=== PATIENT | female | born 1960 | race Caucasian/White ===

== ENCOUNTER → 2020-07-29 09:36 | Outpatient (BNVA) | payer OTHER, SELFPAY | PROVIDERS: PCP Pediatrics; Referring Provider Pediatrics; Visit Provider Nurse Practitioner | DX: K59.04 Chronic idiopathic constipation (principal); K21.9 Gastro-esophageal reflux disease without esophagitis; K56.2 Volvulus; Z79.899 Other long term (current) drug therapy | CPT/HCPCS: 99212 ==

== ENCOUNTER 2020-08-14 10:07 | Outpatient (REF) | payer OTHER, SELFPAY ==
--- NOTE | 2020-08-14 | MM_ITS ---
EXAMINATION: BONE DENSITOMETRY CLINICAL INDICATION: Other specified disorders of bone density and structure, unspecified site. COMPARISON: Baseline BD dated 06/23/2016. TECHNIQUE: Using a [employer] DXA System (software version: 13.1) manufactured by [employer], dual-energy x-ray absorptiometry was performed of the lumbar spine and left hip. The images are of good technical quality. Summary results are attached. FINDINGS: AP SPINE L1-L4: Current: BMD 0.964 g/cm2, Z-score -1.0, T-score -1.8, osteopenia, 5.9% decrease from baseline (<5% change is not significant). Baseline: BMD 1.024 g/cm2. LEFT FEMUR, NECK: Current: BMD 0.705 g/cm2, Z-score -1.4, T-score -2.4, osteopenia. Baseline: BMD 0.809 g/cm2. LEFT FEMUR, TOTAL: Current: BMD 0.674 g/cm2, Z-score -2.0, T-score -2.6, osteoporosis, 14.8% decrease from baseline (<5% change is not significant). Baseline: BMD 0.791 g/cm2. IDENTIFIED RISK FACTORS: History of adult fracture. Current smoker. Recurrent falls. Low calcium intake. Secondary osteoporosis (part of stomach removed, early menopause). Left oophorectomy. HISTORY OF FRACTURE: Wrist. MEDICATIONS: Calcium supplement and/or multivitamin. Vitamin D. MM/XR DEXA axial skeleton IMPRESSION: 1. DIAGNOSIS: Osteoporosis based on the lowest T-score value of -2.6 in the total femur and the prior history of fracture applying World Health Organization criteria. 2. 10-YEAR FRACTURE RISK PREDICTION, FRAX: Major osteoporotic fracture (clinical spine, forearm, hip or shoulder) 11.0%. Hip fracture 3.1%. 3. Treatment Recommendations: NOF guidelines recommend consideration for treatment in postmenopausal women and men age 50 and older presenting with the following: -A hip or vertebral (clinical or morphometric) fracture. -T-score less than or equal to -2.5 at the femoral neck or spine after appropriate evaluation to exclude secondary causes. -Low bone mass at the hip or spine and a 10-year fracture probability by FRAX of greater than or equal to 3% for hip fracture or greater than or equal to 20% for major osteoporotic fracture based on the [place] adapted WHO algorithm. 4. Other Recommendations: All treatment decisions require clinical judgment and consideration of individual patient factors, including patient preferences, comorbidities, previous drug use, risk factors not captured in the FRAX model (e.g. frailty, falls, vitamin D deficiency, increased bone turnover, interval significant decline in bone density) and possible under or overestimation of fracture risk by FRAX. Additional medical evaluation for secondary cause of low bone mineral density may be appropriate. FUTURE SCAN RECOMMENDATION: People with diagnosed cases of osteoporosis or at high risk for fracture should have regular bone mineral density tests. For patients eligible for Medicare, routine testing is allowed once every 2 years. The testing frequency can be increased to one year for patients who have rapidly progressing disease, those who are receiving or discontinuing medical therapy to restore bone mass, or have additional risk factors.
== END 2020-08-14 10:08 | disposition home or self-care (01) ==
LOC: HO.MAMMO 10:07
PROVIDERS: PCP Pediatrics; Visit Provider Pediatrics
DX: M85.89 Other specified disorders of bone density and structure, multiple sites (principal)
CPT/HCPCS: 77080

== ENCOUNTER → 2021-02-04 08:49 | Outpatient (BNVA) | payer OTHER, SELFPAY | PROVIDERS: PCP Pediatrics; Visit Provider Nurse Practitioner | DX: Z13.89 Encounter for screening for other disorder (principal) | CPT/HCPCS: Q3014 ==

== ENCOUNTER 2021-02-25 11:02 | Outpatient (REF) | payer OTHER, SELFPAY ==
[2021-02-25 12:47] LABS: Glucose Urine UA NEG (NEG); Leukocyte Esterase Urine NEG (NEG); Nitrite Urine NEG (NEG); Specific Gravity - Urine >= 1.030 (1.005-1.025); Urine Blood TRACE (NEG); Urine Ketones 5 MG/DL (NEG); Urine Protein NEG (NEG-TRACE)
[2021-02-25 12:52] LABS: Appearance Urine CLEAR; Color Urine DARK YELLOW
[2021-02-25 13:39] LABS: Bacteria Urine TRACE /LPF; Calcium Oxalate Crystals Urine TRACE /LPF; Squamous Epithelial Cell Urine 1+ /LPF; WBC Urine 0 /HPF (0-4)
== END 2021-02-25 11:03 | disposition home or self-care (01) ==
LOC: HO.LAB 11:02
PROVIDERS: PCP Pediatrics; Visit Provider Nurse Practitioner
DX: R35.0 Frequency of micturition (principal)
CPT/HCPCS: 81001

== ENCOUNTER → 2021-02-27 08:13 | Outpatient (BNVA) | payer OTHER, SELFPAY | PROVIDERS: PCP Pediatrics; Visit Provider Nurse Practitioner | DX: Z13.89 Encounter for screening for other disorder (principal) | CPT/HCPCS: Q3014 ==

== ENCOUNTER 2021-04-08 10:34 | Outpatient (REF) | payer OTHER, SELFPAY ==
[2021-04-08 13:32] LABS: Urine Cytology See Pathology rpt
== END 2021-04-08 10:35 | disposition home or self-care (01) ==
LOC: HO.LNP 10:34
PROVIDERS: PCP Pediatrics
DX: R31.9 Hematuria, unspecified (principal)
CPT/HCPCS: 51798; 88112; 99202

== ENCOUNTER → 2021-04-30 11:07 | Outpatient (BNVA) | payer OTHER, SELFPAY | PROVIDERS: PCP Pediatrics | DX: R35.0 Frequency of micturition (principal) | CPT/HCPCS: 99212 ==

== ENCOUNTER → 2021-06-03 08:24 | Outpatient (BNVA) | payer OTHER, SELFPAY | PROVIDERS: PCP Pediatrics; Visit Provider Nurse Practitioner | CPT/HCPCS: Q3014 ==

== ENCOUNTER 2021-06-24 13:55 | Inpatient (IN) | payer OTHER, SELFPAY ==
[2021-06-24] VITALS (24 sets, daily range): BP systolic 158–210; BP diastolic 75–117; PULSE 62–99; RESP 15–20; TEMP 36.5–37.6; O2SAT 96–100; BMI 25.7
--- NOTE | ~2021-06-24 | CT_ITS ---
EXAMINATION: CT ABDOMEN AND PELVIS WITHOUT CONTRAST CLINICAL INFORMATION: Right flank pain. COMPARISON: MR lumbar spine 06/16/2016, radiographs lumbar spine 07/16/2015. TECHNIQUE: Multidetector volumetric imaging was performed from the superior aspect of the liver through the pubic symphysis. No oral or intravenous contrast. Sagittal and coronal reformatted images were obtained on the technologist's workstation. This CT examination was performed using dose optimization techniques as appropriate, variously including the following: *Automated exposure control *Adjustment of mA and/or kV according to patient size (this includes techniques or standardized protocols for targeted exams where dose is matched to indication/reason for exam; i.e. extremities or head) *Use of iterative reconstruction technique DLP: 466 mGy-cm FINDINGS: LUNG BASES: The visualized lung bases are unremarkable. LIVER, GALLBLADDER, AND BILIARY TREE: The liver is normal in size and smooth in contour. There is a probable 1 cm subcapsular cyst dome left lobe segment 4A. The remainder of the liver is homogeneous. There is no intrahepatic ductal dilatation. The gallbladder is normal in caliber. There is no wall thickening or calcified stones. There is a 0.6 cm intraluminal isodensity near the fundus. Differential considerations include polyp, adenoma, tumefactive sludge, or nonmineralized stone. No pericholecystic inflammatory changes. Common duct is unremarkable. PANCREAS: Unremarkable. SPLEEN: Unremarkable. ADRENAL GLANDS: Unremarkable. KIDNEYS AND URETERS: The kidneys are normal in size and smooth in contour and symmetric in attenuation. There is no hydronephrosis, hydroureter, or perinephric stranding. Left kidney has a punctate nonobstructing upper pole calculus measuring under 3 mm. Right kidney has a nonobstructing parenchymal calculus medial interpolar region measuring 0.5 cm. No ureteral calculi. BLADDER: Unremarkable. GASTROINTESTINAL TRACT: There are postsurgical changes consistent with prior gastric bypass. There are also anastomosis clips anterior left pelvis with focal distended bowel with feces. It is uncertain if this represents colon or small bowel. Appendix not seen with certainty. No focal inflammatory changes around cecum or terminal ileum. The central mesentery shows corkscrew swirling of the vasculature with nonspecific mid mesenteric edema. There is no pneumatosis or free air. No gaseous dilatation of bowel. There is fluid filled distention of the samish stomach and duodenum. Trace pelvic fluid. 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 ABDOMINAL WALL: No significant hernia is appreciated. LYMPH NODES: Normal. VASCULAR: See GI section above. Abdominal aorta are unremarkable. PELVIC VISCERA: No additional findings. OSSEOUS STRUCTURES: Unremarkable. Report called and discussed with Regla Dave PA-C in the Emergency Department at 1635 hours. Surgical consult is recommended. Repeat CT with oral and intravenous contrast may help in further defining the abnormalities in the bowel and mid mesentery. CT/CT abdomen pelvis wo con IMPRESSION: 1. Postsurgical changes including prior gastric bypass. Corkscrew swirling of mid mesenteric vasculature with mesenteric edema and trace ascites. 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 Recommend surgical consult. Repeat CT with oral and intravenous contrast may help in further defining the bowel and mesentery. 2. Bilateral nonobstructing renal calculi. No hydronephrosis, hydroureter, or perinephric stranding. 3. Small isodensity in gallbladder lumen near fundus. No gallbladder wall thickening or ductal dilatation. Differential considerations include polyp, adenoma, tumefactive sludge, nonmineralized stone.
--- NOTE | 2021-06-24 14:28 | ED.GENADULT ---
HPI - General Adult General Chief complaint: Abdominal Pain <Isabella Napoles MD - Last Filed: 06/24/21 18:45> Stated complaint: abd pain, vomiting <Isabella Napoles MD - Last Filed: 06/24/21 18:45> Time Seen by Provider: 06/24/21 14:25 <Isabella Napoles MD - Last Filed: 06/24/21 18:45> Source: patient <Isabella Napoles MD - Last Filed: 06/24/21 18:45> Mode of arrival: ambulatory <Isabella Napoles MD - Last Filed: 06/24/21 18:45> Limitations: no limitations <MD Allison Reilly Last Filed: 06/24/21 18:45> History of Present Illness HPI narrative: 61 years old female came in for evaluation of right flank pain. Pain started 1 hour ago, confined to the right flank pain now started to radiate down to the right lower abdominal area, pain is constant but fluctuate and described as severe dull aching pain 10/10, nothing make it better, nothing makes it worse, associated with nausea and vomiting, no diarrhea, no fever, chills. Patient had similar symptoms in the past and had a history of kidney stones that require stent placement. <Isabella Napoles MD - Last Filed: 06/24/21 18:45> Related Data Home medications: Home Medications Medication Instructions Recorded Confirmed bisacodyl 5 mg tablet,delayed 10 mg PO BEDTIME 07/26/20 04/30/21 release (Dulcolax (bisacodyl)) polyethylene glycol 3350 17 17 g PO DAILY 07/26/20 04/30/21 gram/dose oral powder (Miralax) Previous Rx's Medication Instructions Recorded linaclotide 145 mcg capsule 145 mcg PO DAILY #30 cap 11/14/20 (Linzess) oxybutynin chloride 10 mg 10 mg PO DAILY 30 Days #30 tab 04/30/21 tablet,extended release 24 hr pantoprazole 40 mg tablet,delayed 40 mg PO BID #180 tab 06/03/21 release <MD Allison Reilly Last Filed: 06/24/21 18:45> Allergies/adverse reactions: Allergies Allergy/AdvReac Type Severity Reaction Status Date / Time penicillin V Allergy Unknown unknown Verified 06/24/21 14:07 <Isabella Napoles MD - Last Filed: 06/24/21 18:45> Review of Systems Review of Systems: All other systems are reviewed and are negative Constitutional: Reports as per HPI and Reports no additional constitutional complaints Eyes: Reports as per HPI and Reports no additional eye complaints Reports system reviewed and no additional complaints, except as documented Cardiovascular: Reports as per HPI and Reports no additional cardiovascular complaints Respiratory: Reports as per HPI and Reports no additional respiratory complaints Gastrointestinal: Reports as per HPI and Reports no additional gastrointestinal complaints Genitourinary: Reports no additional female genitourinary complaints Musculoskeletal: Reports no additional musculoskeletal complaints Skin/Breast: Reports system reviewed and no additional complaints, except as docu Psychiatric: Reports no additional psychiatric complaints Endocrine: Reports no additional endocrine complaints Hematologic/Lymphatic: Reports no additional hematologic/lymphatic complaints Allergic/Immunologic: Reports no additional allergic/immunologic complaints Reports system reviewed and no additional complaints, except as documented and Reports Abnormal speech present <Isabella Napoles MD - Last Filed: 06/24/21 18:45> [facility] Past Medical History Medical History: Medical History Chronic idiopathic constipation Fibromyalgia syndrome GERD (gastroesophageal reflux disease) History of intussusception Migraine headache Volvulus of intestine <Isabella Napoles MD - Last Filed: 06/24/21 18:45> Surgical History: Surgical History H/O colonoscopy H/O wrist surgery History of surgery Hx of esophagogastroduodenoscopy <Isabella Napoles MD - Last Filed: 06/24/21 18:45> Family History Family History: Family History Father Alcoholism Mother Lung cancer Maternal Grandmother Breast cancer High blood pressure Maternal Grandfather Heart attack Paternal Grandfather Diabetes <Isabella Napoles MD - Last Filed: 06/24/21 18:45> Social History Social History: Social History Household Members: Children Housing: House Alcohol intake: never Patient Tobacco Use Status: Current everyday Tobacco user Cigarettes Per Day: 10 Years Smoked: since age 18 Use of substances other than those prescribed or required for medical reasons: No Substance Use Type: Marijuana Advance Directives: Yes Advance Directives Information Provided: Yes Advance Directives on File: No Patient : No Current occupational status: disabled <Isabella Napoles MD - Last Filed: 06/24/21 18:45> Physical Exam Vital Signs: Vital Signs: Last Vital Signs Temp 98.2 F 06/24/21 17:46 Pulse 67 06/24/21 17:46 Resp 18 06/24/21 17:46 BP 199/75 H 06/24/21 17:46 Pulse Ox 98 06/24/21 17:46 Body Mass Index 25.7 Vital signs have been reviewed as appeared to be correct. Blood pressure elevated. Heart rate normal. Respiration rate normal. Temperature normal. Oxygen saturation normal. <Isabella Napoles MD - Last Filed: 06/24/21 18:45> Vital Signs: Last Vital Signs Temp 98.2 F 06/24/21 17:46 Pulse 67 06/24/21 17:46 Resp 18 06/24/21 17:46 BP 199/75 H 06/24/21 17:46 Pulse Ox 98 06/24/21 17:46 Body Mass Index 25.7 <MALCOLM Nick - Last Filed: 06/24/21 16:38> Appearance: Alert. Oriented X3. Moderate acute distress due to right flank pain. Head: Normal external exam. Normocephalic. Atraumatic. No Brantley signs noted. No raccoon eyes noted Eyes: PERRLA. EOMI. Conjunctiva and sclera normal. Eyelids normal. ENT: TM's Normal. Pharynx normal. Uvula midline. Moist mucous membranes. No trismus noted. No drooling noted. No muffled voice noted. Neck: Normal inspection. Neck supple. FROM. No adenopathy. Thyroid Normal. No meningeal signs. No neck mass noted. CVS: Normal heart rate and rhythm. Heart sound normal. No murmurs noted. Pulses normal throughout. Respiratory: No respiratory distress. Painless inspiration. Breath sounds normal. No wheezes/rales/rhonchi noted. Chest nontender. No accessory muscle usage noted or decreased air movement noted. Abdomen: Soft and nontender. Bowel sounds normal in all 4 quadrants. No distention noted. No organomegaly noted. No visible injury noted. Back: Right CVA tenderness. Full range of motion noted. Skin: Skin warm and dry. Normal skin color. Normal skin turgor. No rashes/lesions/lacerations noted. Extremities: No lower extremity edema. Extremities exhibit normal range of motion. Extremities nontender. Neuro: Oriented X 3. Cranial nerve exam: II-XII are grossly intact No motor deficit. No sensory deficit. Reflexes normal. <Isabella Napoles MD - Last Filed: 06/24/21 18:45> Course Course Course Narrative: Assessment and plan. 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 Dr. Falcon from General surgery was at the bedside evaluated the patient recommended to consult bariatric surgery. Jovanny rodríguez from bariatric surgery is evaluating the patient decision to take the patient to the OR. Patient received IV empirical antibiotic. <Isabella Napoles MD - Last Filed: 06/24/21 18:45> Medical Decision Making Lab Data Lab results reviewed: Yes I reviewed the patient's lab results. <Isabella Napoles MD - Last Filed: 06/24/21 18:45> Result diagrams: : 06/24/21 14:47 06/24/21 14:47 <Isabella Napoles MD - Last Filed: 06/24/21 18:45> Labs: Lab Results 06/24/21 06/24/21 06/24/21 Range/Units 14:47 14:47 14:47 WBC 12.0 H (4.8-10.8) X10*3/uL RBC 5.62 H (4.20-5.50) X10*6/uL Hgb 13.6 (12.0-16.0) g/dl Hct 43.5 (37-47) % MCV 77.4 L (80-98) fL MCH 24.2 L (27.0-33.0) pg MCHC 31.3 (31.0-35.0) g/dl RDW 23.2 H (11.0-16.0) % Plt Count 211 (160-400) X10*3/uL MPV 10.9 (9.4-12.3) fL Immature Gran % (Auto) 0.4 (0.0-0.4) % Neut % (Auto) 81.5 H (45-73) % Lymph % (Auto) 13.3 L (20-40) % [place] % (Auto) 4.3 (2-11) % Eos % (Auto) 0.3 (0-4) % Baso % (Auto) 0.2 (0-2) % Lymph # (Auto) 1.6 (1.2-4.9) X10*3/uL [place] # (Auto) 0.5 (0.1-1.2) X10*3/uL Eos # (Auto) 0.0 (0.0-0.4) X10*3/uL Baso # (Auto) 0.0 (0.0-0.2) X10*3/uL Abs Immat Gran (auto) 0.05 H (0.00-0.03) X10*3/uL Absolute Neuts (auto) 9.8 H (2.0-8.3) X10*3/uL Absolute Nucleated RBC 0.000 (0.0-0.012) X10*3/uL Nucleated RBC % (auto) 0.0 (0.0-0.2) /100WBC Sodium 141 (135-145) mmol/L Potassium 4.0 (3.3-5.1) mmol/L Chloride 106 (96-108) mmol/L Carbon Dioxide 27 (22-29) mmol/L Anion Gap 12 (12-20) BUN 13 (9-16) mg/dL Creatinine 0.77 (0.5-1.4) mg/dL Estim Creat Clear Calc 74.5 Estimated GFR > 60 Random Glucose 111 (60-115) mg/dL Lactic Acid (0.5-2.0) mmol/L Calcium 8.8 (8.4-10.2) mg/dL Total Bilirubin 0.6 (0.0-1.0) mg/dL Direct Bilirubin 0.2 (0.0-0.5) mg/dL AST 13 (5-31) U/L ALT 12 (0-31) U/L Alkaline Phosphatase 70 (39-117) U/L Total Protein 5.7 L (6.5-8.0) g/dL Albumin 3.6 (3.5-5.0) g/dL Lipase 11 (8-78) U/L Urine Color Urine Appearance Urine pH (5.0-8.0) Ur Specific [place] (1.005-1.025) Urine Protein (NEG-TRACE) MG/DL Urine Glucose (UA) (NEG) MG/DL Urine Ketones (NEG) MG/DL Urine Blood (NEG) Urine Nitrite (NEG) Ur Leukocyte Esterase (NEG) Urine RBC (0) /HPF Urine WBC (0-4) /HPF Ur Squamous Epith Cells /LPF Calcium Oxalate Crystal /LPF Amorphous Sediment /LPF Urine Bacteria /LPF Urine Mucus /LPF COVID-19 (MIGUELINA) Negative (Negative) COVID-19 Clin Com See Note 06/24/21 06/24/21 Range/Units 15:51 18:14 WBC (4.8-10.8) X10*3/uL RBC (4.20-5.50) X10*6/uL Hgb (12.0-16.0) g/dl Hct (37-47) % MCV (80-98) fL MCH (27.0-33.0) pg MCHC (31.0-35.0) g/dl RDW (11.0-16.0) % Plt Count (160-400) X10*3/uL MPV (9.4-12.3) fL Immature Gran % (Auto) (0.0-0.4) % Neut % (Auto) (45-73) % Lymph % (Auto) (20-40) % [place] % (Auto) (2-11) % Eos % (Auto) (0-4) % Baso % (Auto) (0-2) % Lymph # (Auto) (1.2-4.9) X10*3/uL [place] # (Auto) (0.1-1.2) X10*3/uL Eos # (Auto) (0.0-0.4) X10*3/uL Baso # (Auto) (0.0-0.2) X10*3/uL Abs Immat Gran (auto) (0.00-0.03) X10*3/uL Absolute Neuts (auto) (2.0-8.3) X10*3/uL Absolute Nucleated RBC (0.0-0.012) X10*3/uL Nucleated RBC % (auto) (0.0-0.2) /100WBC Sodium (135-145) mmol/L Potassium (3.3-5.1) mmol/L Chloride (96-108) mmol/L Carbon Dioxide (22-29) mmol/L Anion Gap (12-20) BUN (9-16) mg/dL Creatinine (0.5-1.4) mg/dL Estim Creat Clear Calc Estimated GFR Random Glucose (60-115) mg/dL Lactic Acid 1.5 (0.5-2.0) mmol/L Calcium (8.4-10.2) mg/dL Total Bilirubin (0.0-1.0) mg/dL Direct Bilirubin (0.0-0.5) mg/dL AST (5-31) U/L ALT (0-31) U/L Alkaline Phosphatase (39-117) U/L Total Protein (6.5-8.0) g/dL Albumin (3.5-5.0) g/dL Lipase (8-78) U/L Urine Color YELLOW Urine Appearance HAZY Urine pH 6.5 (5.0-8.0) Ur Specific [place] 1.020 (1.005-1.025) Urine Protein NEG (NEG-TRACE) MG/DL Urine Glucose (UA) NEG (NEG) MG/DL Urine Ketones 5 (NEG) MG/DL Urine Blood 2+ H (NEG) Urine Nitrite NEG (NEG) Ur Leukocyte Esterase NEG (NEG) Urine RBC 15-29 H (0) /HPF Urine WBC 0-2 (0-4) /HPF Ur Squamous Epith Cells 1+ /LPF Calcium Oxalate Crystal 1+ /LPF Amorphous Sediment TRACE /LPF Urine Bacteria TRACE /LPF Urine Mucus 1+ /LPF COVID-19 (MIGUELINA) (Negative) COVID-19 Clin Com <Isabella Napoles MD - Last Filed: 06/24/21 18:45> Lab Results 06/24/21 06/24/21 06/24/21 Range/Units 14:47 14:47 14:47 WBC 12.0 H (4.8-10.8) X10*3/uL RBC 5.62 H (4.20-5.50) X10*6/uL Hgb 13.6 (12.0-16.0) g/dl Hct 43.5 (37-47) % MCV 77.4 L (80-98) fL MCH 24.2 L (27.0-33.0) pg MCHC 31.3 (31.0-35.0) g/dl RDW 23.2 H (11.0-16.0) % Plt Count 211 (160-400) X10*3/uL MPV 10.9 (9.4-12.3) fL Immature Gran % (Auto) 0.4 (0.0-0.4) % Neut % (Auto) 81.5 H (45-73) % Lymph % (Auto) 13.3 L (20-40) % Hernando % (Auto) 4.3 (2-11) % Eos % (Auto) 0.3 (0-4) % Baso % (Auto) 0.2 (0-2) % Lymph # (Auto) 1.6 (1.2-4.9) X10*3/uL [place] # (Auto) 0.5 (0.1-1.2) X10*3/uL Eos # (Auto) 0.0 (0.0-0.4) X10*3/uL Baso # (Auto) 0.0 (0.0-0.2) X10*3/uL Abs Immat Gran (auto) 0.05 H (0.00-0.03) X10*3/uL Absolute Neuts (auto) 9.8 H (2.0-8.3) X10*3/uL Absolute Nucleated RBC 0.000 (0.0-0.012) X10*3/uL Nucleated RBC % (auto) 0.0 (0.0-0.2) /100WBC Sodium 141 (135-145) mmol/L Potassium 4.0 (3.3-5.1) mmol/L Chloride 106 (96-108) mmol/L Carbon Dioxide 27 (22-29) mmol/L Anion Gap 12 (12-20) BUN 13 (9-16) mg/dL Creatinine 0.77 (0.5-1.4) mg/dL Estim Creat Clear Calc 74.5 Estimated GFR > 60 Random Glucose 111 (60-115) mg/dL Lactic Acid (0.5-2.0) mmol/L Calcium 8.8 (8.4-10.2) mg/dL Total Bilirubin 0.6 (0.0-1.0) mg/dL Direct Bilirubin 0.2 (0.0-0.5) mg/dL AST 13 (5-31) U/L ALT 12 (0-31) U/L Alkaline Phosphatase 70 (39-117) U/L Total Protein 5.7 L (6.5-8.0) g/dL Albumin 3.6 (3.5-5.0) g/dL Lipase 11 (8-78) U/L Urine Color Urine Appearance Urine pH (5.0-8.0) Ur Specific [place] (1.005-1.025) Urine Protein (NEG-TRACE) MG/DL Urine Glucose (UA) (NEG) MG/DL Urine Ketones (NEG) MG/DL Urine Blood (NEG) Urine Nitrite (NEG) Ur Leukocyte Esterase (NEG) Urine RBC (0) /HPF Urine WBC (0-4) /HPF Ur Squamous Epith Cells /LPF Calcium Oxalate Crystal /LPF Amorphous Sediment /LPF Urine Bacteria /LPF Urine Mucus /LPF COVID-19 (MIGUELINA) Negative (Negative) COVID-19 Clin Com See Note 06/24/21 06/24/21 Range/Units 15:51 18:14 WBC (4.8-10.8) X10*3/uL RBC (4.20-5.50) X10*6/uL Hgb (12.0-16.0) g/dl Hct (37-47) % MCV (80-98) fL MCH (27.0-33.0) pg MCHC (31.0-35.0) g/dl RDW (11.0-16.0) % Plt Count (160-400) X10*3/uL MPV (9.4-12.3) fL Immature Gran % (Auto) (0.0-0.4) % Neut % (Auto) (45-73) % Lymph % (Auto) (20-40) % [place] % (Auto) (2-11) % Eos % (Auto) (0-4) % Baso % (Auto) (0-2) % Lymph # (Auto) (1.2-4.9) X10*3/uL [place] # (Auto) (0.1-1.2) X10*3/uL Eos # (Auto) (0.0-0.4) X10*3/uL Baso # (Auto) (0.0-0.2) X10*3/uL Abs Immat Gran (auto) (0.00-0.03) X10*3/uL Absolute Neuts (auto) (2.0-8.3) X10*3/uL Absolute Nucleated RBC (0.0-0.012) X10*3/uL Nucleated RBC % (auto) (0.0-0.2) /100WBC Sodium (135-145) mmol/L Potassium (3.3-5.1) mmol/L Chloride (96-108) mmol/L Carbon Dioxide (22-29) mmol/L Anion Gap (12-20) BUN (9-16) mg/dL Creatinine (0.5-1.4) mg/dL Estim Creat Clear Calc Estimated GFR Random Glucose (60-115) mg/dL Lactic Acid 1.5 (0.5-2.0) mmol/L Calcium (8.4-10.2) mg/dL Total Bilirubin (0.0-1.0) mg/dL Direct Bilirubin (0.0-0.5) mg/dL AST (5-31) U/L ALT (0-31) U/L Alkaline Phosphatase (39-117) U/L Total Protein (6.5-8.0) g/dL Albumin (3.5-5.0) g/dL Lipase (8-78) U/L Urine Color YELLOW Urine Appearance HAZY Urine pH 6.5 (5.0-8.0) Ur Specific [place] 1.020 (1.005-1.025) Urine Protein NEG (NEG-TRACE) MG/DL Urine Glucose (UA) NEG (NEG) MG/DL Urine Ketones 5 (NEG) MG/DL Urine Blood 2+ H (NEG) Urine Nitrite NEG (NEG) Ur Leukocyte Esterase NEG (NEG) Urine RBC 15-29 H (0) /HPF Urine WBC 0-2 (0-4) /HPF Ur Squamous Epith Cells 1+ /LPF Calcium Oxalate Crystal 1+ /LPF Amorphous Sediment TRACE /LPF Urine Bacteria TRACE /LPF Urine Mucus 1+ /LPF COVID-19 (MIGUELINA) (Negative) COVID-19 Clin Com <MALCOLM Nick - Last Filed: 06/24/21 16:38> Imaging Data CT scan - abdomen: Attestation: I personally reviewed and interpreted this imaging study as follows: <Isabella Napoles MD - Last Filed: 06/24/21 18:45> Radiologist's impression: 1. Postsurgical changes including prior gastric bypass. Corkscrew swirling of mid mesenteric vasculature with mesenteric edema and trace ascites. 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 Recommend surgical consult. Repeat CT with oral and intravenous contrast may help in further defining the bowel and mesentery. ? 2. Bilateral nonobstructing renal calculi. No hydronephrosis, hydroureter, or perinephric stranding. ? 3. Small isodensity in gallbladder lumen near fundus. No gallbladder wall thickening or ductal dilatation. Differential considerations include polyp, adenoma, tumefactive sludge, nonmineralized stone. <Isabella Napoles MD - Last Filed: 06/24/21 18:45> Critical Care Time Critical Care Time Critical Care Time: Yes <Isabella Napoles MD - Last Filed: 06/24/21 18:45> Total Critical Care Time: 45 <Isabella Napoles MD - Last Filed: 06/24/21 18:45> Attestation: I spent 45 minutes providing critical care service to the patient, this including time spent at the bedside to evaluate the patient, reassess the patient, monitoring vital signs, review labs, and radiographic studies, counseling the patient/family, discussing the case with consultants, disposition the patient. <Isabella Napoles MD - Last Filed: 06/24/21 18:45> Discharge Plan Discharge Clinical Impression: Acute abdomen <Isabella Napoles MD - Last Filed: 06/24/21 18:45> Patient Disposition: Admitted As Inpatient <Isabella Napoles MD - Last Filed: 06/24/21 18:45> Prescriptions: No Action linaclotide [Linzess] 145 mcg capsule 145 mcg PO DAILY Qty: 30 RF: 4 polyethylene glycol 3350 [Miralax] 17 gram/dose powder 17 g PO DAILY RF: 0 bisacodyl [Dulcolax (bisacodyl)] 5 mg tablet,delayed release (DR/EC) 10 mg PO BEDTIME RF: 0 pantoprazole 40 mg tablet,delayed release (DR/EC) 40 mg PO BID Qty: 180 RF: 0 oxybutynin chloride 10 mg tablet extended release 24hr 10 mg PO DAILY 30 Days Qty: 30 RF: 3 <Isabella Napoles MD - Last Filed: 06/24/21 18:45>
[2021-06-24] MEDS: ondansetron HCL 4 MG/2 ML VIAL IVPUSH ×2 (14:48→23:17)
[2021-06-24] MEDS: HYDROmorphone HCl 1 MG/ML SYRINGE IVPUSH ×3 (14:49→17:47)
[2021-06-24] MEDS: Ketorolac Tromethamine 15 MG/ML VIAL 30 MG IVPUSH (14:50)
[2021-06-24] MEDS: 0.9 % Sodium Chloride 1,000 ML 999 ML IVCONT (14:52)
[2021-06-24 14:57] LABS: MANUAL DIFF FLAG NO
[2021-06-24 15:02] LABS: Basophils Percent Auto 0.2 % (0-2); Eosinophils Percent Auto 0.3 % (0-4); Hematocrit 43.5 % (37-47); Hemoglobin 13.6 g/dl (12.0-16.0); Imm Gran Abs Auto 0.05 X10*3/uL (0.00-0.03); Imm Gran Pct Auto 0.4 % (0.0-0.4); Lymphocytes Absolute Auto 1.6 X10*3/uL (1.2-4.9); Lymphocytes Percent Auto 13.3 % (20-40); Mean Corpuscular HGB Conc 31.3 g/dl (31.0-35.0); Mean Corpuscular Hemoglobin 24.2 pg (27.0-33.0); Mean Corpuscular Volume 77.4 fL (80-98); Mean Platelet Volume 10.9 fL (9.4-12.3); Monocytes Absolute Auto 0.5 X10*3/uL (0.1-1.2); Monocytes Percent Auto 4.3 % (2-11); Neutrophils Absolute Auto 9.8 X10*3/uL (2.0-8.3); Neutrophils Percent Auto 81.5 % (45-73); Platelet Count 211 X10*3/uL (160-400); Red Blood Count 5.62 X10*6/uL (4.20-5.50); Red Cell Distribution Width 23.2 % (11.0-16.0)
[2021-06-24 15:15] LABS: Alanine Aminotransferase 12 U/L (0-31); Albumin Level 3.6 g/dL (3.5-5.0); Alkaline Phosphatase 70 U/L (39-117); Anion Gap 12 (12-20); Aspartate Amino Transferase 13 U/L (5-31); Bilirubin Direct 0.2 mg/dL (0.0-0.5); Bilirubin Total 0.6 mg/dL (0.0-1.0); Blood Urea Nitrogen 13 mg/dL (9-16); Calcium 8.8 mg/dL (8.4-10.2); Carbon Dioxide 27 mmol/L (22-29); Chloride 106 mmol/L (96-108); Creatinine Clr Calc Pharmacy 74.5; Estimated Glomerular Filt Rate > 60; Glucose Random 111 mg/dL (60-115); Lipase 11 U/L (8-78); Sodium 141 mmol/L (135-145); Total Protein 5.7 g/dL (6.5-8.0)
[2021-06-24 15:31] LABS: COVID-19 Test Negative (Negative); IDNOW Serial# 9DD0AD1C
[2021-06-24 15:56] LABS: Appearance Urine HAZY; Color Urine YELLOW; Glucose Urine UA NEG (NEG); Leukocyte Esterase Urine NEG (NEG); Nitrite Urine NEG (NEG); PH 6.5 (5.0-8.0); UACC Culture Trigger NO; Urine Blood 2+ (NEG); Urine Ketones 5 MG/DL (NEG); Urine Protein NEG (NEG-TRACE)
[2021-06-24 16:07] LABS: Squamous Epithelial Cell Urine 1+ /LPF
[2021-06-24 16:08] LABS: Calcium Oxalate Crystals Urine 1+ /LPF
[2021-06-24 16:09] LABS: Amorphous Sediment Urine TRACE /LPF; Bacteria Urine TRACE /LPF; Mucus Urine 1+ /LPF; WBC Urine 0-2 /HPF (0-4)
--- NOTE | 2021-06-24 17:48 | PC.NURSE ---
upper abd pain continues to be refractory to dilaudid. pt states last bm was this am and last po intake 1300. is dry heaving at times. nause meds requested. general surgeon at bedside.
[2021-06-24 18:32] LABS: Lactic Acid 1.5 mmol/L (0.5-2.0)
--- NOTE | 2021-06-24 18:52 | P.HPGS_ITS ---
History of Present Illness History of Present Illness Date of Service: 06/24/21 Chief complaint: abd pain, vomiting Narrative: Janice Taylor is a 61 year old female with PSHx of gastric bypass 2008 at [facility] [place], and lap internal hernia repair with intussuseption in March 2021 also at [facility] [place], presented with sudden acute, severe mid abdomen pain at 1 pm. She dropped to her knees. 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 Lactic acid came back at 1.5. Pt was writhing in pain at the time of exam. She stated that her abdomen feels the same it did about 1 year ago. Reports that since her gastric bypass in 2008 she has been doing well except for her admission 1 year ago at [facility] [place]. Reports prior to her acute abdominal pain she has been eating and drinking normally with last BM this morning. Review of Systems Review of Systems: Yes all other systems are reviewed and are negative Gastrointestinal: Gastrointestinal: Reports abdominal pain, Reports nausea and Reports vomiting PMFSH Past Medical History Medical History Chronic idiopathic constipation Fibromyalgia syndrome GERD (gastroesophageal reflux disease) History of intussusception Migraine headache Volvulus of intestine Family History Family History Father Alcoholism Mother Lung cancer Maternal Grandmother Breast cancer High blood pressure Maternal Grandfather Heart attack Paternal Grandfather Diabetes Surgical History Surgical History H/O colonoscopy H/O wrist surgery History of surgery Hx of esophagogastroduodenoscopy Social History Social History Household Members: Children Housing: House Alcohol intake: never Patient Tobacco Use Status: Current everyday Tobacco user Cigarettes Per Day: 10 Years Smoked: since age 18 Use of substances other than those prescribed or required for medical reasons: No Substance Use Type: Marijuana Advance Directives: Yes Advance Directives Information Provided: Yes Advance Directives on File: No Patient : No Current occupational status: disabled Meds Allergies Allergy/AdvReac Type Severity Reaction Status Date / Time penicillin V Allergy Unknown unknown Verified 06/24/21 14:07 Active Medications: Current Medications Pharmacy Consult (Consult Rx Perform Med Rec) 1 each MISCELLANE ONCE PRN PRN Reason: Consult order Home Medications Medication Instructions Recorded Confirmed Last Taken Type bisacodyl 5 mg tablet,delayed 10 mg PO BEDTIME 07/26/20 04/30/21 Unknown History release (Dulcolax (bisacodyl)) polyethylene glycol 3350 17 17 g PO DAILY 07/26/20 04/30/21 Unknown History gram/dose oral powder (Miralax) alendronate 70 mg tablet 1 tab PO QWEEK 06/24/21 Unknown History cetirizine 10 mg tablet 1 tab PO DAILY 06/24/21 Unknown History diclofenac sodium 1 % topical gel 2 g TOPICAL BID 06/24/21 Unknown History hydrocodone 10 mg-acetaminophen 1 tab PO Q4-6H PRN 06/24/21 Unknown History 325 mg tablet ibuprofen 800 mg tablet 1 tab PO TID 06/24/21 Unknown History lisinopril 40 mg tablet 1 tab PO DAILY 06/24/21 Unknown History mirabegron 50 mg tablet,extended 1 tab PO DAILY 06/24/21 Unknown History release 24 hr (Myrbetriq) multivitamin with folic acid 400 1 tab PO DAILY 06/24/21 Unknown History mcg tablet (Daily-Cassia (with folic acid)) paroxetine HCl 30 mg tablet 1 tab PO DAILY 06/24/21 Unknown History ropinirole 2 mg tablet 1 tab PO DAILY 06/24/21 Unknown History trazodone 100 mg tablet 2 tab PO BEDTIME 06/24/21 Unknown History verapamil 120 mg tablet,extended 1 tab PO DAILY 06/24/21 Unknown History release zolpidem 10 mg tablet 1 tab PO BEDTIME PRN 06/24/21 Unknown History Physical Exam Vital Signs: Vital Signs: Last Vital Signs Temp 98.2 F 06/24/21 17:46 Pulse 67 06/24/21 17:46 Resp 18 06/24/21 17:46 BP 199/75 H 06/24/21 17:46 Pulse Ox 98 06/24/21 17:46 Body Mass Index 25.7 Const: General: well developed, alert, awake and acute distress moderate and severe; Negative for not respiratory Orientation/consciousness: patient oriented x3 HENMT: Head: Yes normal to inspection Ears: hearing grossly normal bilaterally Face and sinus: Yes normal facial exam Mouth: Normal oral and palatal mucosa present Resp: Effort & Inspection: normal respiratory effort Auscultation: clear to auscultation bilaterally Cardio: Rate: tachycardic Rhythm: regular rhythm GI: Inspection: Yes scar Palpation (GI): Tenderness to palpation present (GI) in the epigastrum, in the RLQ and in the RUQ and Guarding due to palpation present (GI) in the RLQ and in the RUQ Auscultation: Hypoactive bowel sounds present Skin: General skin exam: no rashes or lesions noted Neuro: General: patient oriented x3 Extrem: General: Yes no pedal edema Psych: Appearance: grossly normal Results Results Labs: Short CBC 06/24/21 Range/Units 14:47 WBC 12.0 H (4.8-10.8) X10*3/uL Hgb 13.6 (12.0-16.0) g/dl Hct 43.5 (37-47) % Plt Count 211 (160-400) X10*3/uL BMP 06/24/21 14:47 Sodium 141 Potassium 4.0 Chloride 106 Carbon Dioxide 27 BUN 13 Creatinine 0.77 Calcium 8.8 Liver Function 06/24/21 Range/Units 14:47 Total Bilirubin 0.6 (0.0-1.0) mg/dL Direct Bilirubin 0.2 (0.0-0.5) mg/dL AST 13 (5-31) U/L ALT 12 (0-31) U/L Alkaline Phosphatase 70 (39-117) U/L Albumin 3.6 (3.5-5.0) g/dL Urine 06/24/21 Range/Units 15:51 Urine Color YELLOW Urine Appearance HAZY Urine pH 6.5 (5.0-8.0) Ur Specific [place] 1.020 (1.005-1.025) Urine Protein NEG (NEG-TRACE) MG/DL Urine Glucose (UA) NEG (NEG) MG/DL Assessment and Plan (1) Acute abdomen: Status: Acute Discussed with attending Dr Marsh, emergent cse to the OR for exploratory laparoscopy, possible repair of internal hernia/volvulus, possible bowel resection, conversion to open procedure. Discussed with OR staff and anesthesia. Quality Stroke Does the patient have a stroke diagnosis?: No VTE Prior VTE?: No VTE Risk Level:: Surgical - moderate VTE Device Contraindication: N/A - Device Ordered VTE Drug Contraindication: Treatment Not Indicated Procedures Date of Service Date of Service: 06/24/21
--- NOTE | 2021-06-24 19:21 | PHA.MEDREC ---
Pharmacy Consult ? Medication Reconciliation Pharmacy has completed the medication reconciliation. There are no remarkable issues for provider's attention. Alecia Flores, TiffanyD
--- NOTE | 2021-06-24 19:22 | PC.NURSE ---
Surgeon at bed side for primary eval. 1700 abx not given by previous RN. This RN went to bed side to medicate, per surgeon, abx no longer needed. This RN doc against meds in PT NOV.
--- NOTE | 2021-06-24 19:33 | HO.ANESPROP2 ---
HPI - Anesthesia Eval Consult details Narrative: abdominalpain PMFSH Active Problems Active Problems: All Active Problems (Updated 06/24/21 @ 18:45 by Isabella Napoles MD) Acute abdomen (Acute) History of intussusception (Acute) Calcium oxalate crystals in urine (Acute) Hematuria (Acute) Urinary tract infection (Acute) Urinary frequency (Acute) GERD (gastroesophageal reflux disease) (Acute) Melena (Acute) Chronic idiopathic constipation (Acute) Past Medical History Medical History Chronic idiopathic constipation Fibromyalgia syndrome GERD (gastroesophageal reflux disease) History of intussusception Migraine headache Volvulus of intestine Functional capacity: independent ambulation Family History Family History Father Alcoholism Mother Lung cancer Maternal Grandmother Breast cancer High blood pressure Maternal Grandfather Heart attack Paternal Grandfather Diabetes Family history of problems with anesthesia: No Surgical History Surgical History H/O colonoscopy H/O wrist surgery History of surgery Hx of esophagogastroduodenoscopy History of Problems with Anesthesia: No Social History Social History Household Members: Children Housing: House Alcohol intake: never Patient Tobacco Use Status: Current everyday Tobacco user Cigarettes Per Day: 10 Years Smoked: since age 18 Use of substances other than those prescribed or required for medical reasons: No Substance Use Type: Marijuana Advance Directives: Yes Advance Directives Information Provided: Yes Advance Directives on File: No Patient : No Current occupational status: disabled Meds Allergies Allergy/AdvReac Type Severity Reaction Status Date / Time penicillin V Allergy Unknown unknown Verified 06/24/21 14:07 Active Medications: Current Medications Pharmacy Consult (Consult Rx Perform Med Rec) 1 each MISCELLANE ONCE PRN PRN Reason: Consult order Home Medications Medication Instructions Recorded Confirmed Last Taken Type bisacodyl 5 mg tablet,delayed 10 mg PO BEDTIME PRN 07/26/20 06/24/21 Unknown History release (Dulcolax (bisacodyl)) polyethylene glycol 3350 17 17 g PO DAILY PRN 07/26/20 06/24/21 Unknown History gram/dose oral powder (Miralax) alendronate 70 mg tablet 1 tab PO MO 06/24/21 06/24/21 Unknown History cetirizine 10 mg tablet 1 tab PO DAILY PRN 06/24/21 06/24/21 Unknown History diclofenac sodium 1 % topical gel 2 g TOPICAL BID PRN 06/24/21 06/24/21 Unknown History ibuprofen 800 mg tablet 1 tab PO TID PRN 06/24/21 06/24/21 Unknown History linaclotide 145 mcg capsule 145 mcg PO DAILY PRN 06/24/21 06/24/21 Unknown History (Linzess) lisinopril 40 mg tablet 1 tab PO DAILY 06/24/21 06/24/21 Unknown History multivitamin with folic acid 400 1 tab PO DAILY 06/24/21 06/24/21 Unknown History mcg tablet (Daily-Cassia (with folic acid)) paroxetine HCl 30 mg tablet 1 tab PO DAILY 06/24/21 06/24/21 Unknown History ropinirole 2 mg tablet 1 tab PO DAILY 06/24/21 06/24/21 Unknown History trazodone 100 mg tablet 2 tab PO BEDTIME 06/24/21 06/24/21 Unknown History verapamil 120 mg tablet,extended 1 tab PO DAILY 06/24/21 06/24/21 Unknown History release zolpidem 10 mg tablet 1 tab PO BEDTIME PRN 06/24/21 06/24/21 Unknown History Exam Exam Date and Time: June 24, 20211932 Height,Weight and Vital Signs: Height 5 ft 4 in Weight 68.039 kg Last Vital Signs Temp 98.2 F 06/24/21 17:46 Pulse 67 06/24/21 17:46 Resp 18 06/24/21 17:46 BP 199/75 H 06/24/21 17:46 Pulse Ox 98 06/24/21 17:46 Pertinent Lab Results Pertinent Lab Results: Laboratory Tests 06/24/21 06/24/21 06/24/21 14:47 14:47 14:47 WBC 12.0 H RBC 5.62 H Hgb 13.6 Hct 43.5 MCV 77.4 L MCH 24.2 L MCHC 31.3 RDW 23.2 H Plt Count 211 MPV 10.9 Immature Gran % (Auto) 0.4 Neut % (Auto) 81.5 H Lymph % (Auto) 13.3 L [place] % (Auto) 4.3 Eos % (Auto) 0.3 Baso % (Auto) 0.2 Lymph # (Auto) 1.6 [place] # (Auto) 0.5 Eos # (Auto) 0.0 Baso # (Auto) 0.0 Abs Immat Gran (auto) 0.05 H Absolute Neuts (auto) 9.8 H Absolute Nucleated RBC 0.000 Nucleated RBC % (auto) 0.0 Sodium 141 Potassium 4.0 Chloride 106 Carbon Dioxide 27 Anion Gap 12 BUN 13 Creatinine 0.77 Estim Creat Clear Calc 74.5 Estimated GFR > 60 Random Glucose 111 Lactic Acid Calcium 8.8 Total Bilirubin 0.6 Direct Bilirubin 0.2 AST 13 ALT 12 Alkaline Phosphatase 70 Total Protein 5.7 L Albumin 3.6 Lipase 11 Urine Color Urine Appearance Urine pH Ur Specific [place] Urine Protein Urine Glucose (UA) Urine Ketones Urine Blood Urine Nitrite Ur Leukocyte Esterase Urine RBC Urine WBC Ur Squamous Epith Cells Calcium Oxalate Crystal Amorphous Sediment Urine Bacteria Urine Mucus COVID-19 (MIGUELINA) Negative COVID-19 Clin Com See Note Blood Type 06/24/21 06/24/21 06/24/21 15:51 18:14 19:03 WBC RBC Hgb Hct MCV MCH MCHC RDW Plt Count MPV Immature Gran % (Auto) Neut % (Auto) Lymph % (Auto) [place] % (Auto) Eos % (Auto) Baso % (Auto) Lymph # (Auto) [place] # (Auto) Eos # (Auto) Baso # (Auto) Abs Immat Gran (auto) Absolute Neuts (auto) Absolute Nucleated RBC Nucleated RBC % (auto) Sodium Potassium Chloride Carbon Dioxide Anion Gap BUN Creatinine Estim Creat Clear Calc Estimated GFR Random Glucose Lactic Acid 1.5 Calcium Total Bilirubin Direct Bilirubin AST ALT Alkaline Phosphatase Total Protein Albumin Lipase Urine Color YELLOW Urine Appearance HAZY Urine pH 6.5 Ur Specific [place] 1.020 Urine Protein NEG Urine Glucose (UA) NEG Urine Ketones 5 Urine Blood 2+ H Urine Nitrite NEG Ur Leukocyte Esterase NEG Urine RBC 15-29 H Urine WBC 0-2 Ur Squamous Epith Cells 1+ Calcium Oxalate Crystal 1+ Amorphous Sediment TRACE Urine Bacteria TRACE Urine Mucus 1+ COVID-19 (MIGUELINA) COVID-19 Clin Com Blood Type O Positive Airway Mallampati Class: II TM Dist: >3cm Neck ROM: Full Loose/Missing/Broken Teeth: No Heart: RRR Lungs: CTA Assessment and Plan Assessment Anesthesia Assessment: Anesthesia Plan Discussed, Smoking Cess. Discussed and Chart Reviewed Final Anesthetic Review Family History of Problems with Anesthesia: No History of Problems with Anesthesia: No NPO: No ASA Class: II and Emergency Final Preanesthetic Review: No Changes in Pt Med Stat, Meds/Allgs Chart Reviewed, Consent Obtained/Reviewed and Anes Risks/Benef Reviewed Patient Risk: Intermediate Procedure Risk: Intermediate Anesthetic Plan Anesthetic Plan: GA Disposition: Standard PACU
--- NOTE | 2021-06-24 19:40 | PC.NURSE ---
Pt transferred to OR on hospital bed by CHENG Pizano.
[2021-06-24 19:44] LABS: Lactic Acid 2.1 mmol/L (0.5-2.0)
--- NOTE | 2021-06-24 19:56 | P.BOP_ITS ---
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
[2021-06-24 21:09] LABS: Reflex Lactate? Lactic Acid Added
[2021-06-24] MEDS: HYDROmorphone HCl 0.5 MG/0.5 ML SYRINGE IVPUSH ×4 (22:12→23:02)
[2021-06-24 22:26] LABS: ~Lactic Acid-LAB USE ONLY 1.1 mmol/L (0.5-2.0)
[2021-06-24] MEDS: hydrALAZINE HCl 20 MG/ML VIAL 10 MG IVPUSH ×2 (22:31→23:21)
[2021-06-24] MEDS: LORazepam 2 MG/ML VIAL 0.5 MG IVPUSH (23:23)
--- NOTE | 2021-06-24 23:46 | P.HPCC_ITS ---
History of Present Illness Date of Service: 06/25/21 Attending physician on admission: Miguel Gutierrez Chief Complaint: hypertensive urgency It is a 61-year-old female with past medical history bypass surgery, intussusception, fibromyalgia, GERD, constipation and is a current smoker who presented to the emergency department yesterday with intractable abdominal pain, nausea and vomiting x 1hr. VSS stable except for elevated BP of 207/113, lactic 2.1, rest of the CBC, BMP and liver panel were within normal limits. In the ED, the patient was given 30 mg IV Toradol, 1 mg IV Dilaudid x2, IV Levaquin and Flagyl. CT of the abdomen showed a mid gut volvulus versus internal hernia with concern of ischemic bowel. Patient was brought to the OR where Dr Fink who performed a detorsion of the of the small intestine. In the OR, patient was given 0.5 mg Dilaudid x5, 50 mcg Fentanyl x2, 100 mg labetalol, 5 mg Lopressor, 10 mg hydralazine x2, 20 mg hydralazine, 0.5 mg lorazepam in an attempt to control her blood pressure and pain however the patient's blood pressure remained elevated at 180 6/114 and her pain remains intractable. Patient is to be transferred to the ICU for blood pressure control and pain management. Assessment and plan discussed with Dr. Gutierrez. Patient admits to continued back pain, nausea and states she needs to urinate. She denies any chest pain, dizziness, changes in her vision but does admit to a slight headache. She has chronic back pain Review of Systems Review of Systems: Yes all other systems are reviewed and are negative FOR[facility]LY [facility] Past Medical History Medical History Anxiety Chronic back pain Chronic idiopathic constipation Depression Fibromyalgia syndrome GERD (gastroesophageal reflux disease) History of intussusception Migraine headache Smoker Volvulus of intestine Functional capacity: independent ambulation Family History Family History Father Alcoholism Mother Lung cancer Maternal Grandmother Breast cancer High blood pressure Maternal Grandfather Heart attack Paternal Grandfather Diabetes Surgical History Surgical History H/O colonoscopy H/O wrist surgery History of appendectomy History of arthroscopy of both knees History of carpal tunnel surgery of left wrist History of section, classical History of gastric bypass History of laparoscopy History of tubal ligation Hx of esophagogastroduodenoscopy Social History Social History Household Members: Children Housing: House Alcohol intake: never Patient Tobacco Use Status: Current everyday Tobacco user Cigarettes Per Day: 10 Years Smoked: since age 18 Use of substances other than those prescribed or required for medical reasons: No Substance Use Type: Marijuana Advance Directives: Yes Advance Directives Information Provided: Yes Advance Directives on File: No Patient : No Current occupational status: disabled Meds Allergies Allergy/AdvReac Type Severity Reaction Status Date / Time penicillin V Allergy Unknown unknown Verified 06/24/21 14:07 Active Medications: Current Medications Acetaminophen (Acetaminophen 325 Mg Tablet) 650 mg PO Q4H PRN PRN Reason: Fever Acetaminophen (Acetaminophen 325 Mg Tablet) 650 mg PO ONCE PRN PRN Reason: Pain, Mild (Pain Scale 1-3) Diphenhydramine HCl (Diphenhydramine Hcl 25 Mg Tablet) 25 mg PO Q4H PRN PRN Reason: itching Fentanyl (Fentanyl Citrate/Pf 100 Mcg/2 Ml Vial) 50 mcg IVPUSH Q5M PRN; Protocol PRN Reason: Pain, Severe (Pain Scale 7-10) Hydralazine HCl (Hydralazine Hcl 20 Mg/Ml Vial) 10 mg IVPUSH ONCE ONE; Protocol Stop: 06/24/21 23:19 Last Admin: 06/24/21 23:21 Dose: 10 mg Documented by: Hydromorphone HCl (Hydromorphone Hcl 0.5 Mg/0.5 Ml Syringe) 0.25 mg IVPUSH Q5MX3 PRN; Protocol PRN Reason: pain Promethazine HCl 12.5 mg/ (Sodium Chloride) 50.5 mls @ 202 mls/hr IV ONCE PRN PRN Reason: Nausea and Vomiting Last Admin: 06/24/21 22:43 Dose: 202 mls/hr Documented by: Acetaminophen (Ofirmev) 1,000 mg in 100 mls @ 16.7 mls/hr IV .Q6H [facility] Lactated Ringer's (Lr) 1,000 mls @ 125 mls/hr IVCONT .Q8H [facility] Acetaminophen (Ofirmev) 1,000 mg in 100 mls @ 400 mls/hr IV ONCE ONE Stop: 06/24/21 23:34 Last Admin: 06/24/21 23:39 Dose: 400 mls/hr Documented by: Fentanyl (Sublimaze/Ns) 1,000 mcg in 100 mls @ 0 mls/hr IVCONT .Q0M [facility]; Protocol Nicardipine HCl 25 mg/ Sodium (Chloride) 260 mls @ 0 mls/hr IVCONT .Q0M [facility]; Protocol Lisinopril (Lisinopril 40 Mg Tablet) 40 mg PO DAILY [facility]; Protocol Lorazepam (Lorazepam 2 Mg/Ml Vial) 0.5 mg IVPUSH ONCE ONE Stop: 06/24/21 23:19 Last Admin: 06/24/21 23:23 Dose: 0.5 mg Documented by: Morphine Sulfate (Morphine Sulfate 2 Mg/Ml Cartridge) 2 mg IVPUSH Q3H PRN; Protocol PRN Reason: Pain, Moderate (Pain Scale 4-6 Naloxone HCl (Naloxone Hcl 0.4 Mg/Ml Vial) 0.2 mg IVPUSH Q2M PRN PRN Reason: Excessive sedation or RR < 8 Omeprazole (Omeprazole 20 Mg Capsule.Dr) 20 mg PO BID@0630,1630 [facility] Ondansetron HCl (Ondansetron Hcl 4 Mg/2 Ml Vial) 4 mg IVPUSH Q8H PRN PRN Reason: Nausea Ondansetron HCl (Ondansetron Hcl 4 Mg/2 Ml Vial) 4 mg IVPUSH ONCE PRN PRN Reason: Nausea and Vomiting Last Admin: 06/24/21 23:17 Dose: 4 mg Documented by: Oxybutynin Chloride (Oxybutynin Chloride Er 5 Mg Tab.Er.24) 10 mg PO DAILY [facility] Oxycodone HCl (Oxycodone Hcl Immed Release 5 Mg Tablet) 10 mg PO ONCE PRN PRN Reason: Pain, Severe (Pain Scale 7-10) Paroxetine HCl (Paroxetine Hcl 30 Mg Tablet) 30 mg PO DAILY [facility] Pharmacy Consult (Consult Rx Perform Med Rec) 1 each MISCELLANE ONCE PRN PRN Reason: Consult order Ropinirole HCl (Ropinirole Hcl 2 Mg Tablet) 2 mg PO DAILY [facility] Trazodone HCl (Trazodone Hcl 100 Mg Tablet) 200 mg PO BEDTIME [facility] Verapamil HCl (Verapamil Hcl Sr 120 Mg Tablet.Er) 120 mg PO DAILY [facility]; Protocol Zolpidem Tartrate (Zolpidem Tartrate 5 Mg Tablet) 10 mg PO BEDTIME PRN PRN Reason: insomnia Home Medications Medication Instructions Recorded Confirmed Last Taken Type bisacodyl 5 mg tablet,delayed 10 mg PO BEDTIME PRN 07/26/20 06/24/21 Unknown History release (Dulcolax (bisacodyl)) polyethylene glycol 3350 17 17 g PO DAILY PRN 07/26/20 06/24/21 Unknown History gram/dose oral powder (Miralax) alendronate 70 mg tablet 1 tab PO MO 06/24/21 06/24/21 Unknown History cetirizine 10 mg tablet 1 tab PO DAILY PRN 06/24/21 06/24/21 Unknown History diclofenac sodium 1 % topical gel 2 g TOPICAL BID PRN 06/24/21 06/24/21 Unknown History ibuprofen 800 mg tablet 1 tab PO TID PRN 06/24/21 06/24/21 Unknown History linaclotide 145 mcg capsule 145 mcg PO DAILY PRN 06/24/21 06/24/21 Unknown History (Linzess) lisinopril 40 mg tablet 1 tab PO DAILY 06/24/21 06/24/21 Unknown History multivitamin with folic acid 400 1 tab PO DAILY 06/24/21 06/24/21 Unknown History mcg tablet (Daily-Cassia (with folic acid)) paroxetine HCl 30 mg tablet 1 tab PO DAILY 06/24/21 06/24/21 Unknown History ropinirole 2 mg tablet 1 tab PO DAILY 06/24/21 06/24/21 Unknown History trazodone 100 mg tablet 2 tab PO BEDTIME 06/24/21 06/24/21 Unknown History verapamil 120 mg tablet,extended 1 tab PO DAILY 06/24/21 06/24/21 Unknown History release zolpidem 10 mg tablet 1 tab PO BEDTIME PRN 06/24/21 06/24/21 Unknown History Physical Exam Vital Signs: Vital Signs: Last Vital Signs Temp 99.1 F 06/24/21 22:47 Pulse 80 06/24/21 23:21 Resp 16 06/24/21 23:02 BP 186/114 H 06/24/21 23:21 Pulse Ox 98 06/24/21 23:02 Body Mass Index 25.7 Const: General: cooperative, healthy appearing, well developed and acute distress (writhing in pain) moderate Nutritional Appearance: average body habitus Orientation/consciousness: patient oriented x3 Limitations: no limitations HENMT: Head: Yes normal to inspection Eyes: General: appearance normal, both eyes and all related structures Neck: Neck: Yes normal visual inspection and Yes full ROM Resp: Effort & Inspection: normal respiratory effort and able to speak in complete sentences Auscultation: clear to auscultation bilaterally Cardio: Rate: regular rate Rhythm: regular rhythm Heart sounds: normal S1 and S2 GI: Other: dressing on abdomen, CDI. Skin: General skin exam: no rashes or lesions noted Neuro: General: patient oriented x3 Extrem: General: Yes normal to inspection Results Labs CBC and Chem 7: 06/25/21 01:13 06/25/21 01:13 Labs: Laboratory Results - last 24 hr 06/24/21 06/24/21 06/24/21 14:47 14:47 14:47 MCV 77.4 L MCH 24.2 L MCHC 31.3 RDW 23.2 H Plt Count 211 MPV 10.9 Immature Gran % (Auto) 0.4 Neut % (Auto) 81.5 H Lymph % (Auto) 13.3 L [place] % (Auto) 4.3 Eos % (Auto) 0.3 Baso % (Auto) 0.2 Lymph # (Auto) 1.6 [place] # (Auto) 0.5 Eos # (Auto) 0.0 Baso # (Auto) 0.0 Abs Immat Gran (auto) 0.05 H Absolute Neuts (auto) 9.8 H Absolute Nucleated RBC 0.000 Nucleated RBC % (auto) 0.0 Anion Gap 12 Estim Creat Clear Calc 74.5 Estimated GFR > 60 Random Glucose 111 Lactic Acid Lactic Acid Fup @ 2Hr Calcium 8.8 Total Bilirubin 0.6 Direct Bilirubin 0.2 AST 13 ALT 12 Alkaline Phosphatase 70 Total Protein 5.7 L Albumin 3.6 Lipase 11 Urine Color Urine Appearance Urine pH Ur Specific Oto Urine Protein Urine Glucose (UA) Urine Ketones Urine Blood Urine Nitrite Ur Leukocyte Esterase Urine RBC Urine WBC Ur Squamous Epith Cells Calcium Oxalate Crystal Amorphous Sediment Urine Bacteria Urine Mucus COVID-19 (MIGUELINA) Negative COVID-19 Clin Com See Note Blood Type Antibody Screen 06/24/21 06/24/21 06/24/21 15:51 18:14 19:03 MCV MCH MCHC RDW Plt Count MPV Immature Gran % (Auto) Neut % (Auto) Lymph % (Auto) [place] % (Auto) Eos % (Auto) Baso % (Auto) Lymph # (Auto) [place] # (Auto) Eos # (Auto) Baso # (Auto) Abs Immat Gran (auto) Absolute Neuts (auto) Absolute Nucleated RBC Nucleated RBC % (auto) Anion Gap Estim Creat Clear Calc Estimated GFR Random Glucose Lactic Acid 1.5 2.1 H* Lactic Acid Fup @ 2Hr Calcium Total Bilirubin Direct Bilirubin AST ALT Alkaline Phosphatase Total Protein Albumin Lipase Urine Color YELLOW Urine Appearance HAZY Urine pH 6.5 Ur Specific Oto 1.020 Urine Protein NEG Urine Glucose (UA) NEG Urine Ketones 5 Urine Blood 2+ H Urine Nitrite NEG Ur Leukocyte Esterase NEG Urine RBC 15-29 H Urine WBC 0-2 Ur Squamous Epith Cells 1+ Calcium Oxalate Crystal 1+ Amorphous Sediment TRACE Urine Bacteria TRACE Urine Mucus 1+ COVID-19 (MIGUELINA) COVID-[employer] Blood Type Antibody Screen 06/24/21 06/24/21 19:03 22:11 MCV MCH MCHC RDW Plt Count MPV Immature Gran % (Auto) Neut % (Auto) Lymph % (Auto) [place] % (Auto) Eos % (Auto) Baso % (Auto) Lymph # (Auto) [place] # (Auto) Eos # (Auto) Baso # (Auto) Abs Immat Gran (auto) Absolute Neuts (auto) Absolute Nucleated RBC Nucleated RBC % (auto) Anion Gap Estim Creat Clear Calc Estimated GFR Random Glucose Lactic Acid Lactic Acid Fup @ 2Hr 1.1 Calcium Total Bilirubin Direct Bilirubin AST ALT Alkaline Phosphatase Total Protein Albumin Lipase Urine Color Urine Appearance Urine pH Ur Specific Oto Urine Protein Urine Glucose (UA) Urine Ketones Urine Blood Urine Nitrite Ur Leukocyte Esterase Urine RBC Urine WBC Ur Squamous Epith Cells Calcium Oxalate Crystal Amorphous Sediment Urine Bacteria Urine Mucus COVID-19 (MIGUELINA) [employer] Blood Type O Positive Antibody Screen NEGATIVE Imaging Radiologist's Impressions: Impressions Abdomen/Pelvis CT 06/24/21 14:25 IMPRESSION: 1. Postsurgical changes including prior gastric bypass. Corkscrew swirling of mid mesenteric vasculature with mesenteric edema and trace ascites. 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 Recommend surgical consult. Repeat CT with oral and intravenous contrast may help in further defining the bowel and mesentery. 2. Bilateral nonobstructing renal calculi. No hydronephrosis, hydroureter, or perinephric stranding. 3. Small isodensity in gallbladder lumen near fundus. No gallbladder wall thickening or ductal dilatation. Differential considerations include polyp, adenoma, tumefactive sludge, nonmineralized stone. Assessment and Plan (1) Small bowel volvulus: Status: Acute Post-surgical labs pending, pain control with Fentanyl drip (2) Hypertensive urgency: Status: Acute labs pending, Cardene drip
[2021-06-25] VITALS (20 sets, daily range): BP systolic 136–190; BP diastolic 83–104; PULSE 78–111; RESP 16–28; TEMP 36.1–37.3; O2SAT 92–98; BMI 26.4
[2021-06-25] MEDS: fentaNYL citrate/NS 1,000 MCG/100 ML PLAST..BAG 10 MCG IVCONT (01:04)
[2021-06-25 01:20] LABS: Mean Corpuscular Hemoglobin 24.4 pg (27.0-33.0); PLT ABN DIST 1; Platelet Count 208 X10*3/uL (160-400); WBC ABN SCTR FOR CBC 1
[2021-06-25 01:22] LABS: Hematocrit 42.1 % (37-47); Hemoglobin 13.5 g/dl (12.0-16.0); Mean Corpuscular HGB Conc 32.1 g/dl (31.0-35.0); Mean Corpuscular Volume 76.1 fL (80-98); Red Blood Count 5.53 X10*6/uL (4.20-5.50); Red Cell Distribution Width 23.2 % (11.0-16.0)
[2021-06-25] MEDS: niCARdipine HCL 25 MG in 0.9 % Sodium Chloride 250 ML 52 MG IVCONT ×2 (01:26→04:56)
[2021-06-25 01:29] LABS: White Blood Count 32.3 X10*3/uL (4.8-10.8)
[2021-06-25 01:38] LABS: Anion Gap 17 (12-20); Blood Urea Nitrogen 10 mg/dL (9-16); Calcium 8.3 mg/dL (8.4-10.2); Carbon Dioxide 19 mmol/L (22-29); Chloride 102 mmol/L (96-108); Creatinine Clr Calc Pharmacy 76.5; Estimated Glomerular Filt Rate > 60; Glucose Random 168 mg/dL (60-115); Potassium 3.5 mmol/L (3.3-5.1); Sodium 134 mmol/L (135-145)
[2021-06-25 01:47] LABS: Acanthocytes 2+ (3-5) /OIF; Band Neutrophils Percent 4 % (3-5); Hypochromasia 1+ (5-14) /OIF; Large Platelet PRESENT; Lymphocytes Absolute Manual 0.6 X10*3/uL (0.6-4.8); Lymphocytes Percent Manual 2 % (20-40); Microcytosis 2+ (15-30) /OIF; Monocytes Absolute Manual 1.9 X10*3/uL (0.0-1.2); Monocytes Percent Manual 6 % (2-11); Neutrophils Absolute Manual 29.7 X10*3/uL (2.2-7.9); Neutrophils Percent Manual 88 % (45-73); Platelet Estimate NORMAL (NORMAL); Platelet Morphology Comment NOTED; RBC Morphology NOTED; Schistocytes 1+ (0-2) /OIF; Spherocytes 1+ (0-2) /OIF; Target Cells 1+ (5-14) /OIF; Toxic Vacuolation PRESENT
[2021-06-25] MEDS: Lactated Ringers 1,000 ML 125 ML IVCONT ×4 (01:54→20:23)
[2021-06-25] MEDS: fentaNYL citrate/NS 1,000 MCG/100 ML PLAST..BAG 15 MCG IVCONT ×2 (02:19→04:56)
--- NOTE | 2021-06-25 04:35 | PC.NURSE ---
ADMIT TO 260-1 FROM OR...AWAKE..ALERT...ANXIOUS AND AGITATED...WRITHING IN BED...C/O 10 ABDOMINAL AND BACK PAIN...SBP 190'S-200'S...ICU BIOSTATISTICS DIRECTOR PRESENT...STARTED FENTANYL DRIP AND TITRATED TO 150 MCG/HR...CARDENE DRIP STARTED 5 MG/HR...GRADUALLY RESTFUL...REPORTS SIGNIFICANT PAIN RELIEF...BP CURRENTLY 156/95.....LR 125 CC/HR...ZEPEDA DRAINING LARGE AMOUNTS YELLOW URINE...ABDOMINAL DRESSING DRY/INTACT..ABDOMEN SILENT...AFEBRILE...RESPIRATIONS EASY ON ROOM AIR...CURRENTLY DOZING...RR 20-24...SAO2 96-98% ROOM AIR
--- NOTE | 2021-06-25 04:54 | OP_ITS ---
SURGEON: Anna Marsh MD PREOPERATIVE DIAGNOSIS: Internal hernia. 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 PROCEDURE PERFORMED: Diagnostic laparoscopy with conversion to laparotomy with detorsion of the entire small intestine at the root of the mesentery. ESTIMATED BLOOD LOSS: About 50 mL. COMPLICATIONS: None. ANESTHESIA: General endotracheal. ASSISTANTS: Jovanny Osborn PA-C. SPECIMENS: None. FINDINGS: Ischemic appearing intestine, which was most of the small intestine. There was torsion of the small intestine up to the root of the mesentery which we were unable to detorse laparoscopically. Once we converted to laparotomy, we found that the entire small intestine was twisted about its root of the mesentery greater than 360 degrees. There was significant engorgement of the mesenteric vessels and veins as well. Once the bowel was detorsed, the bowel was very pink and healthy in appearance without any evidence of ischemia. COMPLICATIONS: None. CONDITION: Postprocedure is good. DESCRIPTION OF PROCEDURE: The patient was brought to the operating room, placed on the operating table in supine position. Normal DVT prophylaxis was instituted, and the patient received 2 g of IV cefotetan preoperatively. General anesthesia was induced. The left arm was tucked next to the patient. The abdomen was prepped and draped in normal sterile fashion using ChloraPrep. Next, a safety time-out was performed. Next, a mixture of 1% lidocaine with epinephrine 0.25% Marcaine plain was used to anesthetize the planned incision site in the left upper quadrant. A #11 scalpel was used to make a 5 mm left upper quadrant transverse surgical incision through, which a Veress needle was placed intraabdominal. Free pops were heard going to the fascia. A saline drop test was used to confirm that the Veress needle was intraabdominal. The intraabdominal cavity was insufflated to 15 mmHg. Next, an Optiview technique was used to place a 5 mm port in the patient's left upper quadrant. A 5 mm 30-degree laparoscope was introduced into the abdomen. The abdominal cavity was surveyed. There was significant blue color to the bowel and engorgement of the mesenteric veins. There was hypermotility of the bowel throughout the abdomen. We then placed 2 additional 5 mm ports under direct vision, one in the patient's left lower quadrant under direct vision and one in the left mid lateral abdomen under direct vision. We then attempted to find the terminal ileum which we did find and we tried to trace the small intestine back. We found the jejunojejunostomy and were unable to completely run the intestine back proximally as it appeared to be stuck in the root of the mesentery without any significant defect that can be seen. We then tried to run the intestine back from the proximal region from the Roby limb and again we got stuck in the root of the mesentery, which appeared to be twisted, but there was no mesenteric defect that we could reduce the small bowel from this area. After we had attempted to reduce the small bowel and run the small bowel unsuccessfully, we converted to laparotomy by making a midline surgical incision from the umbilicus superiorly, which was about 8 cm in length. We localized the skin and subcutaneous tissue with the same local anesthetic. We then used a #11 scalpel to make the incision longitudinally. We dissected the subcutaneous tissues down to the level of fascia. We opened the fascia in the midline. We then extended the length of the fascial opening and the peritoneal opening to the length of the skin incision. We then brought out the entirety of the small bowel and noted that the small bowel was twisted about root of this mesentery greater than 360 degrees. We then detorsed the small bowel so that the mesentery was lying flat. The bowel became pink right away and the engorgement of the vessels started to dissipate. We then ran the small bowel from the terminal ileum back proximally, there was no defect noted. There was no evidence of ischemia. There were a couple of serosal tears on outside the bowel that we reinforced using several interrupted lubricated sutures of 2-0 silk. There was no injury to the bowel otherwise. We then replaced the bowel within the abdomen and covered it with the omentum. We then closed the fascial opening using a total of two 0 looped PDS sutures, one from the inferior portion of the incision and one from the superior portion of the incision. We tied the sutures in the midline. Prior to tying the sutures down the midline, we palpated the undersurface of the fascia, there was no viscera attached to the sutures. We tied the sutures down in the midline and there was no residual fascial defect. We then reapproximated the skin incisions using osiris. We reapproximated the 5 mm port sites on the left abdomen using 4-0 Monocryl stitches. We then placed skin glue over the 5 mm port sites, and we placed dry sterile dressing over the midline surgical incision and tape. The patient tolerated the procedure well, was awakened in a stable condition prior to extubation and transferred to recovery room. There were no complications. MD JACQUELYN Jacques/KOLTON / [id number] MTDD
[2021-06-25 06:10] LABS: PLT ABN DIST 1
[2021-06-25 06:12] LABS: Hematocrit 43.5 % (37-47); Hemoglobin 13.8 g/dl (12.0-16.0); Mean Corpuscular HGB Conc 31.7 g/dl (31.0-35.0); Mean Corpuscular Volume 75.8 fL (80-98); Platelet Count 188 X10*3/uL (160-400); Red Blood Count 5.74 X10*6/uL (4.20-5.50); Red Cell Distribution Width 23.3 % (11.0-16.0)
[2021-06-25 06:15] LABS: White Blood Count 34.9 X10*3/uL (4.8-10.8)
--- NOTE | 2021-06-25 08:16 | P.CDIC_ITS ---
CDI Concurrent Query Documentation Clarification: PHYSICIAN'S DOCUMENTATION REQUEST Date of Query: 06/25/21 0817 Patient Name: Janice Taylor Admit Date: 06/24/21 Dear Doctor, A review of the medical record indicates additional documentation may be needed. Please review below and update the documentation accordingly. Clinical Indicators: The following diagnoses or signs and symptoms were noted in the patient record: Lab Tests: Imaging: Progress Notes: Nurse's Notes: Ancillary Notes: Other Documentation: Risk Factors/Clinical Indicators/Treatments Per Operative Report:There were a couple of serosal tears on outside the bowel that we reinforced using several interrupted lubricated sutures of 2-0 silk.? Based on the above, could you clarify in the Progress Notes the appropriate diagnosis, if significant, that supports the above abnormalities and additional evaluation, monitoring, and/or treatment rendered: * Small Bowel Volvulus with perforation * Small Bowel Volvulus without perforation * Other (please specify) * Unable to determine Use of terms such as suspected, likely, concern for, or probable (associated with a specific diagnosis that is being evaluated, monitored, or treated as if it exists) are acceptable and can be coded in the inpatient setting, when documented at the time of discharge. Thank you, Corine Duvall RN Extension: [phone] Please use your independent medical judgment in providing your response. THIS QUERY IS PART OF THE PERMANENT MEDICAL RECORD Provider Response: Other (Small-bowel volvulus without perforation) Other Diagnosis: Small-bowel volvulus without perforation
--- NOTE | 2021-06-25 08:29 | PM.PNGS ---
Subjective Subjective Date of Service: 06/25/21 <MALCOLM Bowen - Last Filed: 06/25/21 09:18> 06/25/21 <Anna Marsh MD - Last Filed: 06/25/21 10:02> Patient reports: feels better, still having pain and no flatus <MALCOLM Bowen - Last Filed: 06/25/21 09:18> Interval history: POD #1 s/p converted laparotomy to repair small bowel volvulus. Overnight pt required nicardipine and fentanyl gtt. This AM both BP and pain improved. Tolerating IVF with UO 2.89 (mL/kg/hr). Encouraged to get up and walk. Pt admits to occaisional noncompliance (1-2 times per week) forgetting some of her BP meds. <MALCOLM Bowen - Last Filed: 06/25/21 09:18> POD #1 s/p converted laparotomy to repair small bowel volvulus. Overnight pt required nicardipine and fentanyl gtt. This AM both BP and pain improved. Tolerating IVF with UO 2.89 (mL/kg/hr). Encouraged to get up and walk. Pt admits to occaisional noncompliance (1-2 times per week) forgetting some of her BP meds. Patient is doing relatively well status post laparoscopic converted to open reduction of small-bowel volvulus. Patient was admitted to the ICU overnight for pain control with fentanyl drip and blood pressure control with nicardipine. Blood pressures are significantly improved this morning. Patient's pain is significantly improved. She reports her pain is 7/10 but is very different from the pain she was experiencing prior to surgery. She reports nausea is resolved. She has had no vomiting. She has not had any return of bowel function. White blood cell count is elevated in the 30s. Lactic acid is normal. On exam patient is well appearing she is in no apparent distress. Examination abdomen shows a soft nondistended appropriately tender abdomen at Citizens sites. Dressings are clean dry intact. Extremities are warm well-perfused without edema or tenderness. Assessment and plan: This is a 61-year-old lady on postoperative day 1. Status post laparoscopic converted to open reduction of small-bowel volvulus. Patient will likely be transferred out of the intensive care unit to the surgical floor. We will check on the patient later in the day to see how she is doing with nausea. If she has no evidence of nausea we may start sips of clear liquids. Patient was encouraged to ambulate at least 4 times daily and use incentive spirometer on a regular basis. We will repeat blood work tomorrow. <Anna Marsh MD - Last Filed: 06/25/21 10:02> Physical Exam Vital Signs: Vital Signs: Last Vital Signs Temp 98.8 F 06/25/21 08:00 Pulse 96 06/25/21 08:00 Resp 17 06/25/21 08:00 BP 139/91 H 06/25/21 08:00 Pulse Ox 96 06/25/21 08:00 Body Mass Index 26.4 <MALCOLM Bowen - Last Filed: 06/25/21 09:18> Const: General: no acute distress <MALCOLM Bowen - Last Filed: 06/25/21 09:18> Orientation/consciousness: patient oriented x3 <MALCOLM Bowen - Last Filed: 06/25/21 09:18> Resp: Auscultation: diminished lung sounds (at bases) <MALCOLM Bowen - Last Filed: 06/25/21 09:18> Cardio: Rate: tachycardic <MALCOLM Bowen - Last Filed: 06/25/21 09:18> Rhythm: regular rhythm <MALCOLM Bowen - Last Filed: 06/25/21 09:18> GI: Inspection: Yes incision (laparoscopic incisions c/d/i. Laparotomy incision without staining) <MALCOLM Bowen - Last Filed: 06/25/21 09:18> Auscultation: Hypoactive bowel sounds present <MALCOLM Bowen - Last Filed: 06/25/21 09:18> Neuro: General: patient oriented x3 <MALCOLM Bowen - Last Filed: 06/25/21 09:18> Extrem: General: Yes no pedal edema <MALCOLM Bowen Last Filed: 06/25/21 09:18> Procedures Date of Service Date of Service: 06/25/21 <MALCOLM Bowen Last Filed: 06/25/21 09:18> Progress Note: A&P Assessment and plan (1) Small bowel volvulus: Status: Acute <MALCOLM Bowen - Last Filed: 06/25/21 09:18> Assessment and Plan: POD #1 s/p conversion to laparotomy. Doing well. Encourage ambulation. Monitor UO, continue IVF, Continue NPO, consider sips of clears later today if no further nausea. Continue incentive spirometry. Labs in AM <MALCOLM Bowen - Last Filed: 06/25/21 09:18> (2) Hypertensive urgency: Status: Acute <MALCOLM Bowen - Last Filed: 06/25/21 09:18> Assessment and Plan: Tx plan per medicine team <MALCOLM Bowen - Last Filed: 06/25/21 09:18> Fall Risk Details Current Medications: Current Medications Acetaminophen (Acetaminophen 325 Mg Tablet) 650 mg PO Q4H PRN PRN Reason: Fever Diphenhydramine HCl (Diphenhydramine Hcl 25 Mg Tablet) 25 mg PO Q4H PRN PRN Reason: itching Fentanyl (Fentanyl Citrate/Pf 100 Mcg/2 Ml Vial) 100 mcg IVPUSH Q2H PRN; Protocol PRN Reason: Pain, Moderate (Pain Scale 4-6 Lactated Ringer's (Lr) 1,000 mls @ 125 mls/hr IVCONT .Q8H [facility] Last Admin: 06/25/21 04:56 Dose: 125 mls/hr Documented by: Nicardipine HCl 25 mg/ Sodium (Chloride) 260 mls @ 0 mls/hr IVCONT .Q0M [facility]; Protocol Last Admin: 06/25/21 04:56 Dose: 5 mg/hr, 52 mls/hr Documented by: Lisinopril (Lisinopril 40 Mg Tablet) 40 mg PO DAILY [facility]; Protocol Last Admin: 06/25/21 08:08 Dose: Not Given Documented by: Naloxone HCl (Naloxone Hcl 0.4 Mg/Ml Vial) 0.2 mg IVPUSH Q2M PRN PRN Reason: Excessive sedation or RR < 8 Naloxone HCl (Naloxone Hcl 0.4 Mg/Ml Vial) 0.2 mg IVPUSH Q2M PRN PRN Reason: Excessive sedation or RR < 8 Omeprazole (Omeprazole 20 Mg Capsule.Dr) 20 mg PO BID@0630,1630 [facility] Last Admin: 06/25/21 05:53 Dose: Not Given Documented by: Ondansetron HCl (Ondansetron Hcl 4 Mg/2 Ml Vial) 4 mg IVPUSH Q8H PRN PRN Reason: Nausea Ondansetron HCl (Ondansetron Hcl 4 Mg/2 Ml Vial) 4 mg IVPUSH ONCE PRN PRN Reason: Nausea and Vomiting Last Admin: 06/24/21 23:17 Dose: 4 mg Documented by: Oxybutynin Chloride (Oxybutynin Chloride Er 5 Mg Tab.Er.24) 10 mg PO DAILY [facility] Last Admin: 06/25/21 08:08 Dose: Not Given Documented by: Paroxetine HCl (Paroxetine Hcl 30 Mg Tablet) 30 mg PO DAILY [facility] Last Admin: 06/25/21 08:08 Dose: Not Given Documented by: Pharmacy Consult (Consult Rx Perform Med Rec) 1 each MISCELLANE ONCE PRN PRN Reason: Consult order Ropinirole HCl (Ropinirole Hcl 2 Mg Tablet) 2 mg PO DAILY [facility] Last Admin: 06/25/21 08:08 Dose: Not Given Documented by: Trazodone HCl (Trazodone Hcl 100 Mg Tablet) 200 mg PO BEDTIME [facility] Last Admin: 06/25/21 02:00 Dose: Not Given Documented by: Verapamil HCl (Verapamil Hcl Sr 120 Mg Tablet.Er) 120 mg PO DAILY [facility]; Protocol Last Admin: 06/25/21 08:08 Dose: Not Given Documented by: Zolpidem Tartrate (Zolpidem Tartrate 5 Mg Tablet) 10 mg PO BEDTIME PRN PRN Reason: insomnia <MALCOLM Bowen Last Filed: 06/25/21 09:18> Time Spent With Patient Time: Total time spent is greater than 50% in coordination of care (as documented) at patient's floor/unit and/or counseling patient: <MALCOLM Bowen Last Filed: 06/25/21 09:18> Time with patient: 15 - 24 minutes <MALCOLM Bowen Last Filed: 06/25/21 09:18> Quality Stroke Does the patient have a stroke diagnosis?: No <MALCOLM Bowen Last Filed: 06/25/21 09:18> VTE Prior VTE?: No <MALCOLM Bowen Last Filed: 06/25/21 09:18> VTE Risk Level:: Surgical - moderate <MALCOLM Bowen Last Filed: 06/25/21 09:18> VTE Device Contraindication: N/A - Device Ordered <MALCOLM Bowen - Last Filed: 06/25/21 09:18> VTE Drug Contraindication: Treatment Not Indicated <MALCOLM Bowen - Last Filed: 06/25/21 09:18> Results Laboratory Findings 24 Hour Meds: : 06/25/21 05:31 06/25/21 08:20 <MALCOLM Bowen - Last Filed: 06/25/21 09:18> Labs: Laboratory Results - last 24 hr 06/24/21 06/24/21 06/24/21 14:47 14:47 14:47 WBC 12.0 H RBC 5.62 H Hgb 13.6 Hct 43.5 MCV 77.4 L MCH 24.2 L MCHC 31.3 RDW 23.2 H Plt Count 211 MPV 10.9 Immature Gran % (Auto) 0.4 Neut % (Auto) 81.5 H Lymph % (Auto) 13.3 L [place] % (Auto) 4.3 Eos % (Auto) 0.3 Baso % (Auto) 0.2 Lymph # (Auto) 1.6 [place] # (Auto) 0.5 Eos # (Auto) 0.0 Baso # (Auto) 0.0 Abs Immat Gran (auto) 0.05 H Absolute Neuts (auto) 9.8 H Absolute Nucleated RBC 0.000 Nucleated RBC % (auto) 0.0 Neutrophils % (Manual) Band Neutrophils % Lymphocytes % (Manual) Monocytes % (Manual) Abs Neuts (Manual) Lymphocytes # (Manual) Monocytes # (Manual) Toxic Vacuolation Platelet Estimate Large Platelets Plt Morphology Comment RBC Morphology Hypochromasia Microcytosis Spherocytes Target Cells Acanthocytes (Spur) Schistocytes VBG pH VBG pCO2 VBG pO2 VBG HCO3 VBG O2 Saturation VBG Base Excess Sodium 141 Potassium 4.0 Chloride 106 Carbon Dioxide 27 Anion Gap 12 BUN 13 Creatinine 0.77 Estim Creat Clear Calc 74.5 Estimated GFR > 60 Random Glucose 111 Lactic Acid Lactic Acid Fup @ 2Hr Calcium 8.8 Total Bilirubin 0.6 Direct Bilirubin 0.2 AST 13 ALT 12 Alkaline Phosphatase 70 Total Protein 5.7 L Albumin 3.6 Lipase 11 Urine Color Urine Appearance Urine pH Ur Specific [place] Urine Protein Urine Glucose (UA) Urine Ketones Urine Blood Urine Nitrite Ur Leukocyte Esterase Urine RBC Urine WBC Ur Squamous Epith Cells Calcium Oxalate Crystal Amorphous Sediment Urine Bacteria Urine Mucus COVID-19 (MIGUELINA) Negative COVID-19 Clin Com See Note Blood Type Antibody Screen 06/24/21 06/24/21 06/24/21 15:51 18:14 19:03 WBC RBC Hgb Hct MCV MCH MCHC RDW Plt Count MPV Immature Gran % (Auto) Neut % (Auto) Lymph % (Auto) [place] % (Auto) Eos % (Auto) Baso % (Auto) Lymph # (Auto) [place] # (Auto) Eos # (Auto) Baso # (Auto) Abs Immat Gran (auto) Absolute Neuts (auto) Absolute Nucleated RBC Nucleated RBC % (auto) Neutrophils % (Manual) Band Neutrophils % Lymphocytes % (Manual) Monocytes % (Manual) Abs Neuts (Manual) Lymphocytes # (Manual) Monocytes # (Manual) Toxic Vacuolation Platelet Estimate Large Platelets Plt Morphology Comment RBC Morphology Hypochromasia Microcytosis Spherocytes Target Cells Acanthocytes (Spur) Schistocytes VBG pH VBG pCO2 VBG pO2 VBG HCO3 VBG O2 Saturation VBG Base Excess Sodium Potassium Chloride Carbon Dioxide Anion Gap BUN Creatinine Estim Creat Clear Calc Estimated GFR Random Glucose Lactic Acid 1.5 2.1 H* Lactic Acid Fup @ 2Hr Calcium Total Bilirubin Direct Bilirubin AST ALT Alkaline Phosphatase Total Protein Albumin Lipase Urine Color YELLOW Urine Appearance HAZY Urine pH 6.5 Ur Specific [place] 1.020 Urine Protein NEG Urine Glucose (UA) NEG Urine Ketones 5 Urine Blood 2+ H Urine Nitrite NEG Ur Leukocyte Esterase NEG Urine RBC 15-29 H Urine WBC 0-2 Ur Squamous Epith Cells 1+ Calcium Oxalate Crystal 1+ Amorphous Sediment TRACE Urine Bacteria TRACE Urine Mucus 1+ COVID-19 (MIGUELINA) COVID-19 Clin Com Blood Type Antibody Screen 06/24/21 06/24/21 06/25/21 19:03 22:11 01:13 WBC 32.3 H* RBC 5.53 H Hgb 13.5 Hct 42.1 MCV 76.1 L MCH 24.4 L MCHC 32.1 RDW 23.2 H Plt Count 208 MPV Not Reportable Immature Gran % (Auto) Cancelled Neut % (Auto) Cancelled Lymph % (Auto) Cancelled [place] % (Auto) Cancelled Eos % (Auto) Cancelled Baso % (Auto) Cancelled Lymph # (Auto) Cancelled [place] # (Auto) Cancelled Eos # (Auto) Cancelled Baso # (Auto) Cancelled Abs Immat Gran (auto) Cancelled Absolute Neuts (auto) Cancelled Absolute Nucleated RBC 0.000 Nucleated RBC % (auto) 0.0 Neutrophils % (Manual) 88 H Band Neutrophils % 4 Lymphocytes % (Manual) 2 L Monocytes % (Manual) 6 Abs Neuts (Manual) 29.7 H Lymphocytes # (Manual) 0.6 Monocytes # (Manual) 1.9 H Toxic Vacuolation PRESENT Platelet Estimate NORMAL Large Platelets PRESENT Plt Morphology Comment NOTED RBC Morphology NOTED Hypochromasia 1+ (5-14) Microcytosis 2+ (15-30) Spherocytes 1+ (0-2) Target Cells 1+ (5-14) Acanthocytes (Spur) 2+ (3-5) Schistocytes 1+ (0-2) VBG pH VBG pCO2 VBG pO2 VBG HCO3 VBG O2 Saturation VBG Base Excess Sodium Potassium Chloride Carbon Dioxide Anion Gap BUN Creatinine Estim Creat Clear Calc Estimated GFR Random Glucose Lactic Acid Lactic Acid Fup @ 2Hr 1.1 Calcium Total Bilirubin Direct Bilirubin AST ALT Alkaline Phosphatase Total Protein Albumin Lipase Urine Color Urine Appearance Urine pH Ur Specific [place] Urine Protein Urine Glucose (UA) Urine Ketones Urine Blood Urine Nitrite Ur Leukocyte Esterase Urine RBC Urine WBC Ur Squamous Epith Cells Calcium Oxalate Crystal Amorphous Sediment Urine Bacteria Urine Mucus COVID-19 (MIGUELINA) COVID-19 Clin Com Blood Type O Positive Antibody Screen NEGATIVE 06/25/21 06/25/21 06/25/21 01:13 05:31 08:29 WBC 34.9 H* RBC 5.74 H Hgb 13.8 Hct 43.5 MCV 75.8 L MCH 24.0 L MCHC 31.7 RDW 23.3 H Plt Count 188 MPV Not Reportable Immature Gran % (Auto) Neut % (Auto) Lymph % (Auto) [place] % (Auto) Eos % (Auto) Baso % (Auto) Lymph # (Auto) [place] # (Auto) Eos # (Auto) Baso # (Auto) Abs Immat Gran (auto) Absolute Neuts (auto) Absolute Nucleated RBC 0.000 Nucleated RBC % (auto) 0.0 Neutrophils % (Manual) Band Neutrophils % Lymphocytes % (Manual) Monocytes % (Manual) Abs Neuts (Manual) Lymphocytes # (Manual) Monocytes # (Manual) Toxic Vacuolation Platelet Estimate Large Platelets Plt Morphology Comment RBC Morphology Hypochromasia Microcytosis Spherocytes Target Cells Acanthocytes (Spur) Schistocytes VBG pH 7.55 H VBG pCO2 28 VBG pO2 166 VBG HCO3 25 VBG O2 Saturation 99.0 VBG Base Excess 4.6 Sodium 134 L Potassium 3.5 Chloride 102 Carbon Dioxide 19 L Anion Gap 17 BUN 10 Creatinine 0.75 Estim Creat Clear Calc 76.5 Estimated GFR > 60 Random Glucose 168 H Lactic Acid Lactic Acid Fup @ 2Hr Calcium 8.3 L Total Bilirubin Direct Bilirubin AST ALT Alkaline Phosphatase Total Protein Albumin Lipase Urine Color Urine Appearance Urine pH Ur Specific [place] Urine Protein Urine Glucose (UA) Urine Ketones Urine Blood Urine Nitrite Ur Leukocyte Esterase Urine RBC Urine WBC Ur Squamous Epith Cells Calcium Oxalate Crystal Amorphous Sediment Urine Bacteria Urine Mucus COVID-19 (MIGUELINA) COVID-19 Clin Com Blood Type Antibody Screen <MALCOLM Bowen - Last Filed: 06/25/21 09:18>
[2021-06-25 08:35] LABS: VBG Base Excess 4.6 mmol/L; VBG HCO3 25 mmol/L (22-26); VBG pCO2 28 mmHg; VBG pH 7.55 (7.32-7.43); VBG pO2 166 mmHg
[2021-06-25 08:37] LABS: Venous Blood Gas Refer to POC result
[2021-06-25 08:51] LABS: Lactic Acid 1.1 mmol/L (0.5-2.0)
[2021-06-25 08:59] LABS: Alanine Aminotransferase 30 U/L (0-31); Albumin Level 3.7 g/dL (3.5-5.0); Alkaline Phosphatase 68 U/L (39-117); Anion Gap 12 (12-20); Aspartate Amino Transferase 40 U/L (5-31); Bilirubin Total 0.9 mg/dL (0.0-1.0); Blood Urea Nitrogen 7 mg/dL (9-16); Calcium 8.4 mg/dL (8.4-10.2); Carbon Dioxide 27 mmol/L (22-29); Chloride 99 mmol/L (96-108); Creatinine Clr Calc Pharmacy 95.1; Estimated Glomerular Filt Rate > 60; Glucose Random 122 mg/dL (60-115); Magnesium 1.6 mg/dL (1.6-2.6); Phosphorus 2.9 mg/dL (2.7-4.5); Potassium 3.1 mmol/L (3.3-5.1); Sodium 135 mmol/L (135-145); Total Protein 5.9 g/dL (6.5-8.0)
[2021-06-25] MEDS: cloNIDine 0.1 MG PATCH.TDWK TRANSDERMA (10:33)
[2021-06-25] MEDS: Potassium Chloride/H20 10 MEQ/100 ML PIGGYBACK 100 MEQ IV ×4 (10:34→14:49)
[2021-06-25] MEDS: Magnesium Sulfate/H2O 2 GM/50 ML PIGGYBACK IV (10:34)
[2021-06-25] MEDS: fentaNYL citrate/PF 100 MCG/2 ML VIAL IVPUSH (10:44)
--- NOTE | 2021-06-25 11:18 | MHC.CM.PN ---
Pt in ICU following an exploratory laparotomy for bowel torsion. Attempted to meet with pt but could not complete CM assessment d/t pt's complaints of post surgical pain and headache. Call placed to pt's dtr/next of contact, Mary - message left for call back. Pt was referred to NA in the interim as she may require surgical wound assessment and medication management. Will await callback from [facility] and will reapproach pt later this day.
--- NOTE | 2021-06-25 11:26 | HO.POSTANES ---
Post Anesthesia Evaluation Post Anesthesia Evaluation Vital Signs: Vital Signs Temp Pulse Resp BP Pulse Ox 06/25/21 10:44 17 06/25/21 10:33 106 H 143/88 H 06/25/21 10:00 102 H 18 148/85 H 96 06/25/21 09:00 109 H 18 136/86 98 06/25/21 08:00 98.8 F 96 17 139/91 H 96 06/25/21 07:00 108 H 17 137/87 98 06/25/21 06:00 108 H 24 H 146/86 H 97 06/25/21 05:00 100 24 H 159/83 H 96 06/25/21 04:00 98.7 F 104 H 24 H 160/90 H 97 06/25/21 03:00 109 H 16 162/99 H 97 06/25/21 02:00 105 H 28 H 168/99 H 97 06/25/21 01:00 105 H 23 H 95 06/25/21 00:28 95 20 178/104 H 96 06/25/21 00:06 100 20 178/99 H 96 06/25/21 00:00 100 20 182/96 H 98 06/24/21 23:45 99 20 178/110 H 98 06/24/21 23:30 99 20 187/105 H 98 Anesthesia: General Endotracheal-GETA Mental Status: Awake Pain Control: Satisfactory Nausea/Vomiting: Mild Hydration: Adequate Anesthesia-Related Issues: No Anes. Related Issues
[2021-06-25] MEDS: HYDROmorphone HCl 0.5 MG/0.5 ML SYRINGE IVPUSH ×3 (14:04→20:19)
[2021-06-25] MEDS: rOPINIRole HCL 2 MG TABLET PO (14:38)
[2021-06-25] MEDS: PARoxetine HCL 30 MG TABLET PO (14:38)
[2021-06-25] MEDS: Acetaminophen 325 MG TABLET 650 MG PO (14:41)
[2021-06-25] MEDS: lisinopriL 40 MG TABLET PO (14:41)
[2021-06-25] MEDS: VerapamiL HCL SR 120 MG TABLET.ER PO (14:42)
[2021-06-25] MEDS: ondansetron HCL 4 MG/2 ML VIAL IVPUSH (16:16)
[2021-06-25] MEDS: Omeprazole 20 MG CAPSULE.DR PO (17:12)
[2021-06-25] MEDS: Zolpidem Tartrate 5 MG TABLET 10 MG PO (20:27)
[2021-06-26] VITALS (14 sets, daily range): BP systolic 132–203; BP diastolic 70–99; PULSE 76–102; RESP 17–22; TEMP 36.6–37.7; O2SAT 96–98
[2021-06-26] MEDS: HYDROmorphone HCl 0.5 MG/0.5 ML SYRINGE IVPUSH ×11 (00:08→22:29)
[2021-06-26] MEDS: Lactated Ringers 1,000 ML 125 ML IVCONT (00:08)
[2021-06-26] MEDS: traZODone HCL 100 MG TABLET 200 MG PO ×2 (00:09→22:30)
[2021-06-26] MEDS: ondansetron HCL 4 MG/2 ML VIAL IVPUSH ×2 (02:21→12:03)
[2021-06-26] MEDS: hydrALAZINE HCl 20 MG/ML VIAL 5 MG IVPUSH (03:54)
[2021-06-26] MEDS: Dextrose 5 % and 0.45 % NaCl 1,000 ML 50 ML IVCONT (03:58)
[2021-06-26] MEDS: Omeprazole 20 MG CAPSULE.DR PO ×2 (06:26→15:58)
[2021-06-26 07:00] LABS: MANUAL DIFF FLAG NO
[2021-06-26 07:12] LABS: Basophils Percent Auto 0.1 % (0-2); Eosinophils Percent Auto 0.1 % (0-4); Hematocrit 38.8 % (37-47); Hemoglobin 12.5 g/dl (12.0-16.0); Imm Gran Abs Auto 0.12 X10*3/uL (0.00-0.03); Imm Gran Pct Auto 0.7 % (0.0-0.4); Lymphocytes Absolute Auto 0.8 X10*3/uL (1.2-4.9); Lymphocytes Percent Auto 4.9 % (20-40); Mean Corpuscular HGB Conc 32.2 g/dl (31.0-35.0); Mean Corpuscular Hemoglobin 24.3 pg (27.0-33.0); Mean Corpuscular Volume 75.3 fL (80-98); Monocytes Percent Auto 6.1 % (2-11); Neutrophils Percent Auto 88.1 % (45-73); Platelet Count 184 X10*3/uL (160-400); Red Blood Count 5.15 X10*6/uL (4.20-5.50); Red Cell Distribution Width 23.1 % (11.0-16.0)
[2021-06-26 07:51] LABS: Anion Gap 15 (12-20); Blood Urea Nitrogen 8 mg/dL (9-16); Calcium 8.3 mg/dL (8.4-10.2); Carbon Dioxide 23 mmol/L (22-29); Chloride 99 mmol/L (96-108); Creatinine Clr Calc Pharmacy 95.1; Estimated Glomerular Filt Rate > 60; Glucose Random 104 mg/dL (60-115); Potassium 3.3 mmol/L (3.3-5.1); Sodium 134 mmol/L (135-145)
[2021-06-26] MEDS: VerapamiL HCL SR 120 MG TABLET.ER PO (08:14)
[2021-06-26] MEDS: PARoxetine HCL 30 MG TABLET PO (08:15)
[2021-06-26] MEDS: lisinopriL 40 MG TABLET PO (08:16)
--- NOTE | 2021-06-26 09:20 | P.PNGS_ITS ---
Subjective Subjective Date of Service: 06/26/21 Interval history: This is a 61-year-old lady on postoperative day 2. Status post laparoscopic converted to open detorsion of small bowel. Patient was transferred out of the ICU to the surgical floor last evening. She continues to have elevated blood pressures with systolic blood pressures in the 180s to 190s and diastolic blood pressures in the 90s range. Patient reports she still has incisional pain but it is improved compared to yesterday. She is still requiring IV Dilaudid for pain control. Patient has only been walking in the room and has not ambulated in the hallway. She denies any nausea vomiting but has not had any evidence of return of bowel function such as flatus or bowel movement yet. White blood cell count has improved significantly from 34.9 yesterday to 17 today. All other laboratory values are within normal range. Potassium slightly low at 3.3. Patient is using incentive spirometer without difficulty. No other overnight events. Physical Exam Vital Signs: Vital Signs: Last Vital Signs Temp 97.8 F 06/26/21 07:18 Pulse 101 H 06/26/21 07:18 Resp 22 H 06/26/21 08:36 BP 180/88 H 06/26/21 08:16 Pulse Ox 97 06/26/21 07:18 Body Mass Index 26.4 Const: General: cooperative, healthy appearing, comfortable and no acute distress GI: Other: Abdomen is soft, nondistended, mild appropriate incisional tenderness at the incision sites. Midline surgical incision with osiris in place. There is a ecchymosis at the inferior portion of the incision. Laparoscopic incisions are clean dry intact with Dermabond in place. Extrem: Other: Bilateral lower extremities are warm well-perfused without edema or tenderness to palpation. Procedures Date of Service Date of Service: 06/26/21 Progress Note: A&P Assessment and plan (1) History of laparotomy: Status: Acute Assessment and Plan: This is a 61-year-old lady on postoperative day 2. Doing relatively well status post laparoscopy converted to laparotomy with detorsion of small bowel volvulus. Patient is no longer nauseated has no evidence of vomiting. She has not have return of bowel function as of yet. She is tolerating sips of clear liquids. We will advance diet to clear liquids and then check on the patient later on and may advance to regular diet. Once she is on regular diet we will switch over to p.o. pain medications. Patient was advised to ambulate in the hallway at least 4 times a day to encourage return of bowel function. She will continue using incentive spirometer. We have replaced low potassium with potassium chloride by mouth x1. We have reordered CBC for tomorrow. (2) Hypertensive urgency: Status: Acute Assessment and Plan: Patient continues to have significantly elevated blood pressures. We have ordered a hospitalist consult to help manage hypertension. Fall Risk Details Current Medications: Current Medications Acetaminophen (Acetaminophen 325 Mg Tablet) 650 mg PO Q4H PRN PRN Reason: Fever Last Admin: 06/25/21 14:41 Dose: 650 mg Documented by: Diphenhydramine HCl (Diphenhydramine Hcl 25 Mg Tablet) 25 mg PO Q4H PRN PRN Reason: itching Hydralazine HCl (Hydralazine Hcl 20 Mg/Ml Vial) 5 mg IVPUSH Q4H PRN; Protocol PRN Reason: BP>180/90 Last Admin: 06/26/21 03:54 Dose: 5 mg Documented by: Hydromorphone HCl (Hydromorphone Hcl 0.5 Mg/0.5 Ml Syringe) 0.5 mg IVPUSH Q2H PRN; Protocol PRN Reason: Pain, Moderate (Pain Scale 4-6 Last Admin: 06/26/21 08:36 Dose: 0.5 mg Documented by: Dextrose/Sodium Chloride (D51/2ns) 1,000 mls @ 50 mls/hr IVCONT .Q20H [facility] Last Admin: 06/26/21 03:58 Dose: 50 mls/hr Documented by: Lisinopril (Lisinopril 40 Mg Tablet) 40 mg PO DAILY [facility]; Protocol Last Admin: 06/26/21 08:16 Dose: 40 mg Documented by: Naloxone HCl (Naloxone Hcl 0.4 Mg/Ml Vial) 0.2 mg IVPUSH Q2M PRN PRN Reason: Excessive sedation or RR < 8 Naloxone HCl (Naloxone Hcl 0.4 Mg/Ml Vial) 0.2 mg IVPUSH Q2M PRN PRN Reason: Excessive sedation or RR < 8 Omeprazole (Omeprazole 20 Mg Capsule.) 20 mg PO BID@0630,1630 [facility] Last Admin: 06/26/21 06:26 Dose: 20 mg Documented by: Ondansetron HCl (Ondansetron Hcl 4 Mg/2 Ml Vial) 4 mg IVPUSH Q8H PRN PRN Reason: Nausea Last Admin: 06/26/21 02:21 Dose: 4 mg Documented by: Ondansetron HCl (Ondansetron Hcl 4 Mg/2 Ml Vial) 4 mg IVPUSH ONCE PRN PRN Reason: Nausea and Vomiting Last Admin: 06/24/21 23:17 Dose: 4 mg Documented by: Oxybutynin Chloride (Oxybutynin Chloride Er 5 Mg Tab.Er.24) 10 mg PO DAILY [facility] Last Admin: 06/26/21 08:14 Dose: 10 mg Documented by: Paroxetine HCl (Paroxetine Hcl 30 Mg Tablet) 30 mg PO DAILY [facility] Last Admin: 06/26/21 08:15 Dose: 30 mg Documented by: Pharmacy Consult (Consult Rx Perform Med Rec) 1 each MISCELLANE ONCE PRN PRN Reason: Consult order Ropinirole HCl (Ropinirole Hcl 2 Mg Tablet) 2 mg PO DAILY [facility] Last Admin: 06/26/21 08:16 Dose: Not Given Documented by: Trazodone HCl (Trazodone Hcl 100 Mg Tablet) 200 mg PO BEDTIME [facility] Last Admin: 06/26/21 00:09 Dose: 200 mg Documented by: Verapamil HCl (Verapamil Hcl Sr 120 Mg Tablet.Er) 120 mg PO DAILY [facility]; Protocol Last Admin: 06/26/21 08:14 Dose: 120 mg Documented by: Zolpidem Tartrate (Zolpidem Tartrate 5 Mg Tablet) 10 mg PO BEDTIME PRN PRN Reason: insomnia Last Admin: 06/25/21 20:27 Dose: 10 mg Documented by: Time Spent With Patient Time: Total time spent is greater than 50% in coordination of care (as documented) at patient's floor/unit and/or counseling patient: Time with patient: less than 15 minutes Quality Stroke Does the patient have a stroke diagnosis?: No VTE Prior VTE?: No VTE Risk Level:: Surgical - moderate VTE Device Contraindication: N/A - Device Ordered VTE Drug Contraindication: Treatment Not Indicated
[2021-06-26] MEDS: Potassium Chloride Packet 20 MEQ PACKET 40 MEQ PO (09:24)
--- NOTE | 2021-06-26 15:16 | P.CONIM_ITS ---
History of Present Illness Data of Consult Service Date: 06/26/21 Primary Care Provider: Odalys De La Cruz MD [facility] Reason for consult: Uncontrolled HTN This is a 61-year-old female with a past medical history of hypertension who is admitted under the Surgical Services after repair of a small bowel volvulus. Medical consultation is sought for uncontrolled blood pressure. To the emergency room on 06/24/2021 with complaints of abdominal pain and vomiting. She was diagnosed with a small-bowel volvulus and was urgently taken to the operative room. Postoperatively her blood pressure was significantly elevated and subsequently was admitted to the intensive care unit where she required IV nicardipine drip as well as IV fentanyl drip for pain control. She was transferred out out of the intensive care unit on 06/16/2021. Started on her baseline lisinopril and verapamil. Patient's blood pressure readings from noon on 06/25/2021 have ranged from the 170s-200s/80-90. SHe has received her oral meds last 2 days. The patient herself reports that when she checks her BP at home or at doctors office, it usually is in the 160s-170s range. She reports being on same dose of lisinopril / verapamil for at leas the last several months. She reports that she does sometime forget to take her BP meds. CUrrently she reports no symptoms of elevated BP -- no cp, sob, dizzines, starks, vision changes. She reports only abdominal pain which is now a 9/10 and before surgery was an 11/10. Review of Systems Review of Systems: General - no fevers or chills Cardiovascular - no chest pain Respiratory - no shortness of breath or cough Abdominal- +abdominal pain Neuro - no starks or visual changes Yes all other systems are reviewed and are negative [facility] Medical History (Updated 06/26/21 @ 15:24 by oJce Ralph MD) Anxiety Chronic back pain Chronic idiopathic constipation Depression Fibromyalgia syndrome GERD (gastroesophageal reflux disease) History of intussusception Migraine headache Smoker Volvulus of intestine Functional capacity: independent ambulation Family History Father Alcoholism Mother Lung cancer Maternal Grandmother Breast cancer High blood pressure Maternal Grandfather Heart attack Paternal Grandfather Diabetes Pertinent family history: . Surgical History (Updated 06/26/21 @ 09:25 by Anna Marsh MD) H/O colonoscopy H/O wrist surgery History of appendectomy History of arthroscopy of both knees History of carpal tunnel surgery of left wrist History of section, classical History of gastric bypass History of laparoscopy History of laparotomy History of tubal ligation Hx of esophagogastroduodenoscopy Social History Household Members: Children Housing: House Alcohol intake: never Patient Tobacco Use Status: Current everyday Tobacco user Cigarettes Per Day: 10 Years Smoked: since age 18 Substance Use Type: Marijuana Current occupational status: disabled Meds Allergies Allergy/AdvReac Type Severity Reaction Status Date / Time penicillin V Allergy Unknown unknown Verified 06/24/21 14:07 Active Medications: Current Medications Acetaminophen (Acetaminophen 325 Mg Tablet) 650 mg PO Q4H PRN PRN Reason: Fever Last Admin: 06/25/21 14:41 Dose: 650 mg Documented by: Diphenhydramine HCl (Diphenhydramine Hcl 25 Mg Tablet) 25 mg PO Q4H PRN PRN Reason: itching Hydralazine HCl (Hydralazine Hcl 20 Mg/Ml Vial) 5 mg IVPUSH Q4H PRN; Protocol PRN Reason: BP>180/90 Last Admin: 06/26/21 03:54 Dose: 5 mg Documented by: Hydromorphone HCl (Hydromorphone Hcl 0.5 Mg/0.5 Ml Syringe) 0.5 mg IVPUSH Q2H PRN; Protocol PRN Reason: Pain, Moderate (Pain Scale 4-6 Last Admin: 06/26/21 14:17 Dose: 0.5 mg Documented by: Dextrose/Sodium Chloride (D51/2ns) 1,000 mls @ 50 mls/hr IVCONT .Q20H NANCY Last Admin: 06/26/21 03:58 Dose: 50 mls/hr Documented by: Lisinopril (Lisinopril 40 Mg Tablet) 40 mg PO DAILY NANCY; Protocol Last Admin: 06/26/21 08:16 Dose: 40 mg Documented by: Naloxone HCl (Naloxone Hcl 0.4 Mg/Ml Vial) 0.2 mg IVPUSH Q2M PRN PRN Reason: Excessive sedation or RR < 8 Naloxone HCl (Naloxone Hcl 0.4 Mg/Ml Vial) 0.2 mg IVPUSH Q2M PRN PRN Reason: Excessive sedation or RR < 8 Omeprazole (Omeprazole 20 Mg Capsule.Dr) 20 mg PO BID@0630,1630 [facility] Last Admin: 06/26/21 06:26 Dose: 20 mg Documented by: Ondansetron HCl (Ondansetron Hcl 4 Mg/2 Ml Vial) 4 mg IVPUSH Q8H PRN PRN Reason: Nausea Last Admin: 06/26/21 12:03 Dose: 4 mg Documented by: Ondansetron HCl (Ondansetron Hcl 4 Mg/2 Ml Vial) 4 mg IVPUSH ONCE PRN PRN Reason: Nausea and Vomiting Last Admin: 06/24/21 23:17 Dose: 4 mg Documented by: Oxybutynin Chloride (Oxybutynin Chloride Er 5 Mg Tab.Er.24) 10 mg PO DAILY [facility] Last Admin: 06/26/21 08:14 Dose: 10 mg Documented by: Paroxetine HCl (Paroxetine Hcl 30 Mg Tablet) 30 mg PO DAILY [facility] Last Admin: 06/26/21 08:15 Dose: 30 mg Documented by: Pharmacy Consult (Consult Rx Perform Med Rec) 1 each MISCELLANE ONCE PRN PRN Reason: Consult order Polyethylene Glycol (Polyethylene Glycol 3350 17 Gm Powd.Pack) 17 gm PO DAILY [facility] Ropinirole HCl (Ropinirole Hcl 2 Mg Tablet) 2 mg PO DAILY [facility] Last Admin: 06/26/21 08:16 Dose: Not Given Documented by: Trazodone HCl (Trazodone Hcl 100 Mg Tablet) 200 mg PO BEDTIME [facility] Last Admin: 06/26/21 00:09 Dose: 200 mg Documented by: Verapamil HCl (Verapamil Hcl Sr 120 Mg Tablet.Er) 120 mg PO DAILY [facility]; Protocol Last Admin: 06/26/21 08:14 Dose: 120 mg Documented by: Zolpidem Tartrate (Zolpidem Tartrate 5 Mg Tablet) 10 mg PO BEDTIME PRN PRN Reason: insomnia Last Admin: 06/25/21 20:27 Dose: 10 mg Documented by: Home Medications Medication Instructions Recorded Confirmed Last Taken Type bisacodyl 5 mg tablet,delayed 10 mg PO BEDTIME PRN 07/26/20 06/24/21 Unknown History release (Dulcolax (bisacodyl)) polyethylene glycol 3350 17 17 g PO DAILY PRN 07/26/20 06/24/21 Unknown History gram/dose oral powder (Miralax) alendronate 70 mg tablet 1 tab PO MO 06/24/21 06/24/21 Unknown History cetirizine 10 mg tablet 1 tab PO DAILY PRN 06/24/21 06/24/21 Unknown History diclofenac sodium 1 % topical gel 2 g TOPICAL BID PRN 06/24/21 06/24/21 Unknown History ibuprofen 800 mg tablet 1 tab PO TID PRN 06/24/21 06/24/21 Unknown History linaclotide 145 mcg capsule 145 mcg PO DAILY PRN 06/24/21 06/24/21 Unknown History (Linzess) lisinopril 40 mg tablet 1 tab PO DAILY 06/24/21 06/24/21 Unknown History multivitamin with folic acid 400 1 tab PO DAILY 06/24/21 06/24/21 Unknown History mcg tablet (Daily-Cassia (with folic acid)) paroxetine HCl 30 mg tablet 1 tab PO DAILY 06/24/21 06/24/21 Unknown History ropinirole 2 mg tablet 1 tab PO DAILY 06/24/21 06/24/21 Unknown History trazodone 100 mg tablet 2 tab PO BEDTIME 06/24/21 06/24/21 Unknown History verapamil 120 mg tablet,extended 1 tab PO DAILY 06/24/21 06/24/21 Unknown Hist ory release zolpidem 10 mg tablet 1 tab PO BEDTIME PRN 06/24/21 06/24/21 Unknown History Physical Exam Vital Signs and Narrative: Vital Signs: Last Vital Signs Temp 97.9 F 06/26/21 11:00 Pulse 102 H 06/26/21 11:00 Resp 20 06/26/21 14:17 BP 176/85 H 06/26/21 11:00 Pulse Ox 98 06/26/21 11:00 Body Mass Index 26.4 Const: Other: Constitutional - Awake and Alert, No apparent distress, appears comfortable Eyes - PERRLA, EOMI Cardiovascular - S1S2, RRR, No edema Respiratory - Normal lung expansion, Normal respiratory effort, No respiratory distress, CTA bilaterally Gastrointestinal - midline incision with osiris, no drainage appreciated - No CVA tenderness Extremities - no calf tenderness bilaterally, no swelling Musculoskeletal - Normal inspection, normal ROM Skin - Warm/Dry Neurological - Alert & oriented x3, No focal deficit Psychological - Appropriate affect Results Labs CBC and Chem 7: 06/26/21 06:14 06/26/21 06:14 Labs: Laboratory Results - last 24 hr 06/26/21 06/26/21 06:14 06:14 MCV 75.3 L MCH 24.3 L MCHC 32.2 RDW 23.1 H Plt Count 184 MPV Not Reportable Immature Gran % (Auto) 0.7 H Neut % (Auto) 88.1 H Lymph % (Auto) 4.9 L Coffee % (Auto) 6.1 Eos % (Auto) 0.1 Baso % (Auto) 0.1 Lymph # (Auto) 0.8 L Coffee # (Auto) 1.0 Eos # (Auto) 0.0 Baso # (Auto) 0.0 Abs Immat Gran (auto) 0.12 H Absolute Neuts (auto) 15.0 H Absolute Nucleated RBC 0.000 Nucleated RBC % (auto) 0.0 Anion Gap 15 Estim Creat Clear Calc 95.1 Estimated GFR > 60 Random Glucose 104 Calcium 8.3 L Assessment and Plan (1) Hypertensive urgency: Status: Acute 61 yo F admitted under the surgical services - s/p operative repair of small bowel volvulus. Medical consultation sought for management of uncontrolled HTN. 1. Uncontrolled HTN on lisinopril / verapamil at home These have been restarted on 06/25/2021. Since then, her blood pressure reading have significantly improved (although still quiet elevated). Recived 1 dose IV hydralazine overnight, keep it for PRN HTN >200/100 Increase her Verapamil to 180mg daily. If remains uncontrolled, may need further uptitration. Lastly, patient endorses home bp readings in the 160 -- so would not drop her BP beyond that Will follow with you.
[2021-06-26] MEDS: polyethylene glycoL 3350 17 GM POWD.PACK PO (15:55)
[2021-06-26] MEDS: bisacodyL 10 MG SUPP.RECT PR (15:59)
--- NOTE | 2021-06-26 16:08 | MHC.CM.PN ---
IMM 06/25/21 Female DX AB pain vomiting. She lives with family. She uses a walker. She requires assist from [employer]. 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 DP home with resumption of [employer] and new VNA. Family will provide transport. CM will follow.
[2021-06-26] MEDS: VerapamiL HCL 40 MG TABLET PO (18:32)
[2021-06-26] MEDS: Acetaminophen 325 MG TABLET 650 MG PO (19:46)
[2021-06-26] MEDS: Zolpidem Tartrate 5 MG TABLET 10 MG PO (19:46)
[2021-06-27] VITALS (12 sets, daily range): BP systolic 160–202; BP diastolic 88–102; PULSE 80–105; RESP 18–20; TEMP 36.7–37.7; O2SAT 94–99
[2021-06-27] MEDS: Dextrose 5 % and 0.45 % NaCl 1,000 ML 50 ML IVCONT (00:52)
[2021-06-27] MEDS: HYDROmorphone HCl 0.5 MG/0.5 ML SYRINGE IVPUSH ×3 (00:57→08:39)
[2021-06-27] MEDS: Omeprazole 20 MG CAPSULE.DR PO ×2 (06:21→16:39)
[2021-06-27 07:32] LABS: Hematocrit 39.7 % (37-47); Hemoglobin 12.5 g/dl (12.0-16.0); Mean Corpuscular HGB Conc 31.5 g/dl (31.0-35.0); Mean Corpuscular Hemoglobin 24.1 pg (27.0-33.0); Mean Corpuscular Volume 76.6 fL (80-98); Red Blood Count 5.18 X10*6/uL (4.20-5.50)
[2021-06-27 07:33] LABS: Platelet Count 173 X10*3/uL (160-400); Red Cell Distribution Width 22.8 % (11.0-16.0); White Blood Count 13.6 X10*3/uL (4.8-10.8)
[2021-06-27 07:35] LABS: PLT ABN DIST 1
[2021-06-27] MEDS: PARoxetine HCL 30 MG TABLET PO (08:39)
[2021-06-27] MEDS: VerapamiL HCL SR 180 MG TABLET.ER PO (08:42)
[2021-06-27] MEDS: hydrALAZINE HCl 20 MG/ML VIAL 5 MG IVPUSH (08:50)
[2021-06-27] MEDS: ondansetron HCL 4 MG/2 ML VIAL IVPUSH ×2 (08:55→20:59)
[2021-06-27] MEDS: lisinopriL 40 MG TABLET PO (08:56)
--- NOTE | 2021-06-27 09:34 | P.PNGS_ITS ---
Subjective Subjective Date of Service: 06/27/21 Interval history: Patient doing relatively well on postoperative day 3. Status post laparoscopic converted to laparotomy with detorsion of small bowel volvulus. Patient is tolerating clear liquid diet and would like to try more solid food. She did have a bowel movement yesterday. She reports the Dilaudid is not controlling her pain very well. She has been up to ambulate in her room but has not been ambulating in the hallway. She is using incentive spirometer without difficulty. Patient is still having significantly elevated blood pressures with systolic blood pressure this morning in the 200 range. She is being followed by the hospitalist service who is helping to manage the blood pressures. White blood cell count had continues to improve and is down to 13 from 17 yesterday. Hematocrit remains stable. She has been afebrile. Physical Exam Vital Signs: Vital Signs: Last Vital Signs Temp 99.0 F 06/27/21 08:00 Pulse 83 06/27/21 08:00 Resp 18 06/27/21 08:00 BP 202/102 H 06/27/21 08:56 Pulse Ox 96 06/27/21 08:00 Body Mass Index 26.4 Const: General: cooperative, healthy appearing, comfortable and no acute di stress GI: Other: Abdomen is soft, nondistended, appropriate incisional tenderness. Midline surgical incision is clean dry intact with osiris in place. There is ecchymosis about the midline surgical incision. The 3 left abdominal laparoscopic incisions are clean dry intact with skin glue in place. There is no rebound or guarding. There are no hernias palpated. Extrem: Other: Bilateral lower extremities are warm well-perfused throughout without edema or tenderness. Procedures Date of Service Date of Service: 06/27/21 Progress Note: A&P Assessment and plan (1) History of laparotomy: Status: Acute Assessment and Plan: This is a 61-year-old lady doing relatively well on postoperative day 3. Status post laparotomy with detorsion of the small bowel for small-bowel volvulus. Patient has had evidence of bowel function return. We will advance the diet to regular diet and discontinue IV pain medications and convert to p.o. pain medications. Patient was encouraged again to be out of bed to ambulate in the hallway. She will continue to use incentive spirometer. We appreciate hospitalist consultation regarding patient's blood pressure that has been significantly elevated. Patient will be discharged home once she is tolerating regular diet and blood pressure is under better control. Fall Risk Details Current Medications: Current Medications Acetaminophen (Acetaminophen 325 Mg Tablet) 650 mg PO Q4H PRN PRN Reason: Fever Last Admin: 06/26/21 19:46 Dose: 650 mg Documented by: Diphenhydramine HCl (Diphenhydramine Hcl 25 Mg Tablet) 25 mg PO Q4H PRN PRN Reason: itching Hydralazine HCl (Hydralazine Hcl 20 Mg/Ml Vial) 5 mg IVPUSH Q4H PRN; Protocol PRN Reason: BP>200/100 Last Admin: 06/27/21 08:50 Dose: 5 mg Documented by: Hydromorphone HCl (Hydromorphone Hcl 2 Mg Tablet) 2 mg PO Q2H PRN PRN Reason: Pain, Moderate (Pain Scale 4-6 Lisinopril (Lisinopril 40 Mg Tablet) 40 mg PO DAILY [facility]; Protocol Last Admin: 06/27/21 08:56 Dose: 40 mg Documented by: Naloxone HCl (Naloxone Hcl 0.4 Mg/Ml Vial) 0.2 mg IVPUSH Q2M PRN PRN Reason: Excessive sedation or RR < 8 Naloxone HCl (Naloxone Hcl 0.4 Mg/Ml Vial) 0.2 mg IVPUSH Q2M PRN PRN Reason: Excessive sedation or RR < 8 Omeprazole (Omeprazole 20 Mg Capsule.Dr) 20 mg PO BID@0630,1630 [facility] Last Admin: 06/27/21 06:21 Dose: 20 mg Documented by: Ondansetron HCl (Ondansetron Hcl 4 Mg/2 Ml Vial) 4 mg IVPUSH Q8H PRN PRN Reason: Nausea Last Admin: 06/27/21 08:55 Dose: 4 mg Documented by: Oxybutynin Chloride (Oxybutynin Chloride Er 5 Mg Tab.Er.24) 10 mg PO DAILY [facility] Last Admin: 06/27/21 08:39 Dose: 10 mg Documented by: Paroxetine HCl (Paroxetine Hcl 30 Mg Tablet) 30 mg PO DAILY [facility] Last Admin: 06/27/21 08:39 Dose: 30 mg Documented by: Pharmacy Consult (Consult Rx Perform Med Rec) 1 each MISCELLANE ONCE PRN PRN Reason: Consult order Polyethylene Glycol (Polyethylene Glycol 3350 17 Gm Powd.Pack) 17 gm PO DAILY [facility] Last Admin: 06/27/21 08:40 Dose: Not Given Documented by: Ropinirole HCl (Ropinirole Hcl 2 Mg Tablet) 2 mg PO DAILY [facility] Last Admin: 06/27/21 08:40 Dose: Not Given Documented by: Trazodone HCl (Trazodone Hcl 100 Mg Tablet) 200 mg PO BEDTIME NANCY Last Admin: 06/26/21 22:30 Dose: 200 mg Documented by: Verapamil HCl (Verapamil Hcl Sr 180 Mg Tablet.Er) 180 mg PO DAILY [facility]; Protocol Last Admin: 06/27/21 08:42 Dose: 180 mg Documented by: Zolpidem Tartrate (Zolpidem Tartrate 5 Mg Tablet) 10 mg PO BEDTIME PRN PRN Reason: insomnia Last Admin: 06/26/21 19:46 Dose: 10 mg Documented by: Time Spent With Patient Time: Total time spent is greater than 50% in coordination of care (as documented) at patient's floor/unit and/or counseling patient: Time with patient: less than 15 minutes Quality Stroke Does the patient have a stroke diagnosis?: No VTE Prior VTE?: No VTE Risk Level:: Surgical - moderate VTE Device Contraindication: N/A - Device Ordered VTE Drug Contraindication: Treatment Not Indicated
[2021-06-27] MEDS: HYDROmorphone HCl 2 MG TABLET PO ×6 (10:54→23:30)
--- NOTE | 2021-06-27 15:01 | P.PNIM_ITS ---
Subjective Subjective Date of Service: 06/27/21 Interval History: seen and examined this morning follow up for consult for HTN bp improved this morning pt complains of uncontrolled Pain Review of Systems Review of Systems: Yes all other systems are reviewed and are negative Constitutional Constitutional: Denies chills and Denies fever(s) Cardiovascular Cardiovascular: Denies chest pain Respiratory Respiratory: Denies cough Physical Exam 2 Vital Signs: Vital Signs: Last Vital Signs Temp 99.5 F 06/27/21 11:43 Pulse 104 H 06/27/21 11:43 Resp 18 06/27/21 11:43 BP 164/98 H 06/27/21 11:43 Pulse Ox 94 06/27/21 11:43 Body Mass Index 26.4 Const: Other: appears uncomfortable General: awake Nutritional Appearance: well nourished Orientation/consciousness: patient oriented x3 HENMT: Head: Yes normocephalic and Yes atraumatic Eyes: Sclerae: sclerae normal Resp: Effort & Inspection: normal respiratory effort and no respiratory distress Auscultation: clear to auscultation bilaterally Cardio: Rate: regular rate Rhythm: regular rhythm Neuro: General: patient oriented x3 Cranial nerves: Yes CN's II-XII intact bilaterally and Yes Bilaterally intact EOM present Extrem: Other: no leg edema Objective Data Active Medications Acetaminophen (Acetaminophen 325 Mg Tablet) 650 mg PO Q4H PRN PRN Reason: Fever Last Admin: 06/26/21 19:46 Dose: 650 mg Documented by: LORRAINE Diphenhydramine HCl (Diphenhydramine Hcl 25 Mg Tablet) 25 mg PO Q4H PRN PRN Reason: itching Hydralazine HCl (Hydralazine Hcl 20 Mg/Ml Vial) 5 mg IVPUSH Q4H PRN; Protocol PRN Reason: BP>200/100 Last Admin: 06/27/21 08:50 Dose: 5 mg Documented by: SANDRA Hydromorphone HCl (Hydromorphone Hcl 2 Mg Tablet) 2 mg PO Q2H PRN PRN Reason: Pain, Moderate (Pain Scale 4-6 Last Admin: 06/27/21 13:55 Dose: 2 mg Documented by: SANDRA Lisinopril (Lisinopril 40 Mg Tablet) 40 mg PO DAILY [facility]; Protocol Last Admin: 06/27/21 08:56 Dose: 40 mg Documented by: SANDRA Naloxone HCl (Naloxone Hcl 0.4 Mg/Ml Vial) 0.2 mg IVPUSH Q2M PRN PRN Reason: Excessive sedation or RR < 8 Naloxone HCl (Naloxone Hcl 0.4 Mg/Ml Vial) 0.2 mg IVPUSH Q2M PRN PRN Reason: Excessive sedation or RR < 8 Omeprazole (Omeprazole 20 Mg Capsule.Dr) 20 mg PO BID@0630,1630 [facility] Last Admin: 06/27/21 06:21 Dose: 20 mg Documented by: LORRAINE Ondansetron HCl (Ondansetron Hcl 4 Mg/2 Ml Vial) 4 mg IVPUSH Q8H PRN PRN Reason: Nausea Last Admin: 06/27/21 08:55 Dose: 4 mg Documented by: SANDRA Oxybutynin Chloride (Oxybutynin Chloride Er 5 Mg Tab.Er.24) 10 mg PO DAILY [facility] Last Admin: 06/27/21 08:39 Dose: 10 mg Documented by: SANDRA Paroxetine HCl (Paroxetine Hcl 30 Mg Tablet) 30 mg PO DAILY [facility] Last Admin: 06/27/21 08:39 Dose: 30 mg Documented by: SANDRA Pharmacy Consult (Consult Rx Perform Med Rec) 1 each MISCELLANE ONCE PRN PRN Reason: Consult order Polyethylene Glycol (Polyethylene Glycol 3350 17 Gm Powd.Pack) 17 gm PO DAILY [facility] Last Admin: 06/27/21 08:40 Dose: Not Given Documented by: SANDRA Non-Admin Reason: Patient Refused Ropinirole HCl (Ropinirole Hcl 2 Mg Tablet) 2 mg PO DAILY [facility] Last Admin: 06/27/21 08:40 Dose: Not Given Documented by: SANDRA Non-Admin Reason: Patient Refused Trazodone HCl (Trazodone Hcl 100 Mg Tablet) 200 mg PO BEDTIME [facility] Last Admin: 06/26/21 22:30 Dose: 200 mg Documented by: LORRAINE Comments: pt requested to have meds at this time Verapamil HCl (Verapamil Hcl Sr 180 Mg Tablet.Er) 180 mg PO DAILY [facility]; Protocol Last Admin: 06/27/21 08:42 Dose: 180 mg Documented by: SANDRA Zolpidem Tartrate (Zolpidem Tartrate 5 Mg Tablet) 10 mg PO BEDTIME PRN PRN Reason: insomnia Last Admin: 06/26/21 19:46 Dose: 10 mg Documented by: LORRAINE Labs CBC & Chem 7: 06/27/21 06:53 06/26/21 06:14 Labs: Laboratory Results - last 24 hr 06/27/21 06:53 MCV 76.6 L MCH 24.1 L MCHC 31.5 RDW 22.8 H Plt Count 173 MPV Not Reportable Absolute Nucleated RBC 0.000 Nucleated RBC % (auto) 0.0 Microbiology Microbiology Results: Microbiology 06/24/21 18:14 Blood Culture - Preliminary Blood - Venous No growth after 48 hours. 06/24/21 18:14 Blood Culture - Preliminary Blood - Venous No growth after 48 hours. Assessment and Plan (1) HTN (hypertension): Status: Acute Assessment and Plan: 61 yo F admitted under the surgical services - s/p operative repair of small bowel volvulus. Medical consultation sought for management of uncontrolled HTN. Uncontrolled HTN Initially BP reading this am high, but repeat 160s after medication continue lisinopril and verapamil (verapamil increased to 180 on 06/26) PRN hydralazine for BP >200/100 If remains uncontrolled, may need further uptitration. Lastly, patient endorses home bp readings in the 160 -- so would not drop her BP beyond that Pain may be contributing as patient reports that her pain is not controlled continue other baseline medications dvt ppx - mehcanical devices attending: dr. contreras Quality Stroke Does the patient have a stroke diagnosis?: No VTE Prior VTE?: No VTE Risk Level:: Surgical - moderate VTE Device Contraindication: N/A - Device Ordered VTE Drug Contraindication: Treatment Not Indicated
[2021-06-27] MEDS: Acetaminophen 325 MG TABLET 650 MG PO (17:14)
[2021-06-27] MEDS: traZODone HCL 100 MG TABLET 200 MG PO (20:51)
[2021-06-27] MEDS: Zolpidem Tartrate 5 MG TABLET 10 MG PO (20:51)
[2021-06-28] MEDS: HYDROmorphone HCl 2 MG TABLET PO ×4 (02:51→10:36)
[2021-06-28 03:16] VITALS: BP 186/99; PULSE 91; RESP 18; TEMP 37.1; O2SAT 98
[2021-06-28] MEDS: Omeprazole 20 MG CAPSULE.DR PO ×2 (05:48→15:59)
[2021-06-28 08:00] VITALS: BP 187/87; PULSE 96; RESP 18; TEMP 36.7; O2SAT 97
[2021-06-28 08:14] VITALS: BP 186/99; PULSE 91
[2021-06-28] MEDS: polyethylene glycoL 3350 17 GM POWD.PACK PO (08:14)
[2021-06-28] MEDS: VerapamiL HCL SR 180 MG TABLET.ER PO (08:14)
[2021-06-28 08:15] VITALS: BP 186/99; PULSE 91
[2021-06-28] MEDS: PARoxetine HCL 30 MG TABLET PO (08:15)
[2021-06-28] MEDS: lisinopriL 40 MG TABLET PO (08:15)
[2021-06-28 11:19] VITALS: BP 128/78; PULSE 96; RESP 18; TEMP 37; O2SAT 97
--- NOTE | 2021-06-28 12:06 | PM.IMPN ---
Progress Note: A&P (1) HTN (hypertension): Status: Acute Assessment and Plan: 61 yo F admitted under the surgical services - s/p operative repair of small bowel volvulus. Medical consultation sought for management of uncontrolled HTN. Uncontrolled HTN. likely some component of pain may be contributing also. continue lisinopril and verapamil PRN hydralazine for BP >200/100 If remains uncontrolled, may need further uptitration. Lastly, patient endorses home bp readings in the 160 -- so would not drop her BP beyond that Pain may be contributing as patient reports that her pain is not controlled DVT prophylaxis with mechanical compression boots Attending Dr. Turpin Full code Subjective Subjective Date of Service: 06/28/21 Review of Systems Follow consultation, hypertension Blood pressure high likely secondary to pain, better after medications Physical Exam Vital Signs: Vital Signs: Last Vital Signs Temp 98.6 F 06/28/21 11:19 Pulse 96 06/28/21 11:19 Resp 18 06/28/21 11:19 BP 128/78 06/28/21 11:19 Pulse Ox 97 06/28/21 11:19 Body Mass Index 26.4 Appearing in no acute distress lung sounds are clear to auscultation heart regular rate rhythm, clear S1, S2 positive bowel sounds, abdomen is soft, nontender neuro patient is alert x3, no focal deficits Objective Data Current Medications Acetaminophen (Acetaminophen 325 Mg Tablet) 650 mg PO Q4H PRN PRN Reason: Fever Last Admin: 06/27/21 17:14 Dose: 650 mg Documented by: Diphenhydramine HCl (Diphenhydramine Hcl 25 Mg Tablet) 25 mg PO Q4H PRN PRN Reason: itching Hydralazine HCl (Hydralazine Hcl 20 Mg/Ml Vial) 5 mg IVPUSH Q4H PRN; Protocol PRN Reason: BP>200/100 Last Admin: 06/27/21 08:50 Dose: 5 mg Documented by: Hydromorphone HCl (Hydromorphone Hcl 2 Mg Tablet) 2 mg PO Q2H PRN PRN Reason: Pain, Moderate (Pain Scale 4-6 Last Admin: 06/28/21 10:36 Dose: 2 mg Documented by: Lisinopril (Lisinopril 40 Mg Tablet) 40 mg PO DAILY [facility]; Protocol Last Admin: 06/28/21 08:15 Dose: 40 mg Documented by: Naloxone HCl (Naloxone Hcl 0.4 Mg/Ml Vial) 0.2 mg IVPUSH Q2M PRN PRN Reason: Excessive sedation or RR < 8 Naloxone HCl (Naloxone Hcl 0.4 Mg/Ml Vial) 0.2 mg IVPUSH Q2M PRN PRN Reason: Excessive sedation or RR < 8 Omeprazole (Omeprazole 20 Mg Capsule.Dr) 20 mg PO BID@0630,1630 [facility] Last Admin: 06/28/21 05:48 Dose: 20 mg Documented by: Ondansetron HCl (Ondansetron Hcl 4 Mg/2 Ml Vial) 4 mg IVPUSH Q8H PRN PRN Reason: Nausea Last Admin: 06/27/21 20:59 Dose: 4 mg Documented by: Oxybutynin Chloride (Oxybutynin Chloride Er 5 Mg Tab.Er.24) 10 mg PO DAILY [facility] Last Admin: 06/28/21 08:15 Dose: 10 mg Documented by: Paroxetine HCl (Paroxetine Hcl 30 Mg Tablet) 30 mg PO DAILY [facility] Last Admin: 06/28/21 08:15 Dose: 30 mg Documented by: Pharmacy Consult (Consult Rx Perform Med Rec) 1 each MISCELLANE ONCE PRN PRN Reason: Consult order Polyethylene Glycol (Polyethylene Glycol 3350 17 Gm Powd.Pack) 17 gm PO DAILY [facility] Last Admin: 06/28/21 08:14 Dose: 17 gm Documented by: Ropinirole HCl (Ropinirole Hcl 2 Mg Tablet) 2 mg PO DAILY [facility] Last Admin: 06/28/21 08:17 Dose: Not Given Documented by: Trazodone HCl (Trazodone Hcl 100 Mg Tablet) 200 mg PO BEDTIME [facility] Last Admin: 06/27/21 20:51 Dose: 200 mg Documented by: Verapamil HCl (Verapamil Hcl Sr 180 Mg Tablet.Er) 180 mg PO DAILY [facility]; Protocol Last Admin: 06/28/21 08:14 Dose: 180 mg Documented by: Zolpidem Tartrate (Zolpidem Tartrate 5 Mg Tablet) 10 mg PO BEDTIME PRN PRN Reason: insomnia Last Admin: 06/27/21 20:51 Dose: 10 mg Documented by: Labs CBC & Chem 7: 06/27/21 06:53 06/26/21 06:14 Microbiology Microbiology Results: Microbiology 06/24/21 18:14 Blood - Venous Blood Culture - Preliminary Prelim: GPC Gram Stain only 06/24/21 18:14 Blood - Venous Blood Culture - Preliminary No growth after 48 hours. Quality Stroke Does the patient have a stroke diagnosis?: No VTE Prior VTE?: No VTE Risk Level:: Surgical - moderate VTE Device Contraindication: N/A - Device Ordered VTE Drug Contraindication: Treatment Not Indicated
[2021-06-28] MEDS: HYDROmorphone HCl 2 MG TABLET 3 MG PO ×2 (12:36→15:58)
--- NOTE | 2021-06-28 14:33 | PM.DS ---
DS: Providers Provider Date of Service: 06/28/21 Date of admission: 06/24/21 19:43 Primary care physician: Odalys De La Cruz MD Consults: 06/26/21 09:02 Consult to Hospitalist Routine Consulting Provider: Hospitalist Reason For Exam: HTN DS: Diagnosis Discharge Diagnosis (1) Small bowel volvulus: Status: Acute (2) HTN (hypertension): Status: Acute (3) Gram-positive cocci in clusters: Status: Acute (4) History of laparotomy: Status: Acute (5) GERD (gastroesophageal reflux disease): Status: Acute (6) Chronic idiopathic constipation: Status: Acute DS: Summary Hospital Course Hospital Course: 61 yo female with a PMHx of gastric bypass in 2008 and lap assisted repair of internal hernia in 2019, admitted 06/24/21 with acute abdominal pain. Taken elegantly to the OR for a diagnostic laparoscopy. Found to have small bowel torsion requiring conversion to open with midline laparotomy incision and subsequent successful detorsion of small bowel. Pt tolerated the procedure well and diet was advanced to clears on POD 2 and regular on POD 3. She had a bowel movment on POD 3 and has continued to pass flatus. IV analgesia was converted to PO on POD 3 and this was successful. She has been up and walking in the hallway unassisted. She is being dc'd home POD 4 in stable condition. WBC trended down from a high of 34.9 postoperatively to 13.6 yesterday. No fevers and tachycardia has resolved. She was significantly hypertensive while in the hospital. Medicine consult placed for ongoing HTN in the setting of known hypertension. At home she was taking zestril 40 mg daily and Verapamil 120 mg daily although states she would sometimes forget to take her meds and that she would have home BPs of 160. She required several single doses of Hydralazine and her Verapamil was increased to 180 mg daily. I have given her a 14 day Rx for the increased dose of Verapamil as there may have been a component of pain contributing to her HTN in the hospital. Case was discussed with her PCP, Dr De La Cruz on Wednesday06/27/21, who appreciated the conversation and will have her office call the pt on Wednesday for a close post hospital follow up. Also of note, she was found to have 1 of 2 gram positve BCx on admission. While this is felt to likely be a contaminant, we will prescribe Doxycycline 100 mg PO BID for 5 days until repeat BCx drawn on the day of discharge result negative. Pt has a known history of chronic back pain and per [facility] was prescribed Vicodin 10/325 #56 on the day of admission 06/24/21. She will be given Dilaudid 2 mg, # 10 upon discharge and was instructed not to take the vicodin while taking dilaudid. The increased narcotic prescription was also discussed with PCP. Pt will call the office next week for follow up with Dr Marsh and was given the numbe to the office as well as instructions for post operative care. Time spent discussing smoking cessation with patient: 3 to 10 minutes Status at Discharge Functional status at discharge: independent ambulation Overall status at discharge: patient is progressing back to baseline Time Spent with Patient Time attestation: Total time spent providing and/or coordinating discharge services: Discharge coordination time: Greater than 30 minutes Quality: Stroke Does the patient have a stroke diagnosis?: No Physical Exam Vital Signs: Vital Signs: Last Vital Signs Temp 98.6 F 06/28/21 11:19 Pulse 96 06/28/21 11:19 Resp 18 06/28/21 11:19 BP 128/78 06/28/21 11:19 Pulse Ox 97 06/28/21 11:19 Body Mass Index 26.4 DS: Data Data Completed and Pending Labs on day of discharge: Preliminary micro results at discharge 06/24/21 18:14 Blood Culture - Preliminary Blood - Venous Prelim: GPC Gram Stain only 06/24/21 18:14 Blood Culture - Preliminary Blood - Venous No growth after 48 hours. Discharge Plan Discharge Anticipated Discharge Date/Time: 06/28/21 14:15 Patient Disposition: Home, Self-Care Discharge Diagnosis: s/p detorsion of small bowel volvulus Referrals: [facility] [Outside] - 1 Week Odalys De La Cruz MD [Primary Care Provider] - 1 Week Discharge Medications: New verapamil 180 mg Tablet Extended Release 180 mg PO DAILY Qty: 14 RF: 0 hydromorphone 2 mg Tablet 2 mg PO Q2H PRN (Reason: Pain, Moderate (Pain Scale 4-6) Qty: 10 RF: 0 doxycycline hyclate 100 mg tablet 100 mg PO BID Qty: 10 RF: 0 Continued cetirizine 10 mg tablet 1 tab PO DAILY PRN (Reason: Allergy Symptoms) RF: 0 alendronate 70 mg tablet 1 tab PO MO RF: 0 trazodone 100 mg tablet 2 tab PO BEDTIME RF: 0 ropinirole 2 mg tablet 1 tab PO DAILY RF: 0 paroxetine HCl 30 mg tablet 1 tab PO DAILY RF: 0 zolpidem 10 mg tablet 1 tab PO BEDTIME PRN (Reason: insomnia) RF: 0 lisinopril 40 mg tablet 1 tab PO DAILY RF: 0 diclofenac sodium 1 % gel 2 g topical BID PRN (Reason: Pain) RF: 0 multivitamin with folic acid [Daily-Cassia (with folic acid)] 400 mcg tablet 1 tab PO DAILY RF: 0 Linzess 145 mcg capsule 145 mcg PO DAILY PRN (Reason: Constipation) RF: 0 polyethylene glycol 3350 [Miralax] 17 gram/dose powder 17 g PO DAILY PRN (Reason: Constipation) RF: 0 bisacodyl [Dulcolax (bisacodyl)] 5 mg tablet,delayed release (DR/EC) 10 mg PO BEDTIME PRN (Reason: Constipation) RF: 0 pantoprazole 40 mg tablet,delayed release (DR/EC) 40 mg PO BID Qty: 180 RF: 0 oxybutynin chloride 10 mg tablet extended release 24hr 10 mg PO DAILY 30 Days Qty: 30 RF: 3 Held ibuprofen 800 mg tablet 1 tab PO TID PRN (Reason: Pain) RF: 0 Hold Instructions: until discussed with Dr Marsh Discontinued verapamil 120 mg tablet extended release 1 tab PO DAILY RF: 0 Discharge Orders: Discharge Order (Routine); Ordered 06/28/21 Ordered By: Jovanny Osborn Diet: advance to usual diet Activity on Discharge: No heavy lifting Stand Alone Forms: Patient Portal Discharge page Activity Restrictions/Additional Instructions: Please call Dr Marsh's office at [phone] for a follow up appointment this week. Please call Wednesday06/30/21. You may shower but do not submerge your abdominal incision in water, no bath, ocean, pool ,xie. No heavy lifting greater than 5 pounds until follow up with Dr Marsh. Call the office if you are not feeling well or experience increasing abdominal pain at [phone]. Call if you experience and noticible redness at the incision site or if you notice fever greater than 100.0. Continue stool softeners while taking narcotics. Walk often throughout the day, at least 5 times daily for 15-20 minutes each. Continue the use of your incentive spirometer ( breathing exercises ). Care Plan Goals: Continue to heal from surgery Health Concerns: small bowel vovulus may happen again in the future Plan of Treatment: S/P small bowel detorsion via converted laparotomy Assessment: stable s/p sb detorsion
[2021-06-28 15:00] VITALS: BP 138/80; PULSE 76; RESP 20; TEMP 36.5; O2SAT 97
--- NOTE | 2021-06-28 15:45 | MHC.CM.PN ---
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
--- NOTE | 2021-06-28 16:04 | MHC.CM.PN ---
received call back from kt at [facility] [phone] she has given verbal approval for eval the autjhorization number can not be given till [facility] given this imfo as well
== END 2021-06-28 16:30 | disposition home or self-care (01) | DRG 331 ==
LOC: HO.ED 18:45 → HO.S3 20:05 → HO.ICU 06-25 00:28 → HO.IMC 06-25 10:13
PROVIDERS: Internal Medicine Pulmonary Disease; Physician Assistant; Physician Assistant Surgical; Admitting Provider Surgery; Emergency Provider Emergency Medicine; PCP Pediatrics; Visit Provider Surgery
PROC: 0DS80ZZ Reposition Small Intestine, Open Approach (ICD-10-PCS; CPT 49320; principal; 2021-06-24 19:00)
DX: K56.2 Volvulus (principal); K21.9 Gastro-esophageal reflux disease without esophagitis; M79.7 Fibromyalgia; F17.210 Nicotine dependence, cigarettes, uncomplicated; I10 Essential (primary) hypertension; K59.04 Chronic idiopathic constipation; I16.0 Hypertensive urgency; Z71.6 Tobacco abuse counseling; Z20.822 Contact with and (suspected) exposure to COVID-19; Z88.0 Allergy status to penicillin; Z79.1 Long term (current) use of non-steroidal anti-inflammatories (NSAID); Z79.899 Other long term (current) drug therapy
CPT/HCPCS: 36415; 74176; 80048; 80053; 80076; 81001; 82803; 83605; 83690; 83735; 84100; 85007; 85025; 85027; 86850; 86900; 86901; 87040; 87077; 87205; 87635; 96361; 96365; 96375; 96376; 99024; 99285; 99291; C1758; J0131; J0330; J1100; J1170; J1885; J2060; J2405; J2550; J3010; J3475

== ENCOUNTER → 2021-07-01 12:29 | Outpatient (BNVA) | payer OTHER, SELFPAY | PROVIDERS: PCP Pediatrics; Referring Provider Pediatrics; Visit Provider Surgery | DX: Z98.890 Other specified postprocedural states (principal); K59.04 Chronic idiopathic constipation; K21.9 Gastro-esophageal reflux disease without esophagitis; F17.200 Nicotine dependence, unspecified, uncomplicated; Z88.1 Allergy status to other antibiotic agents; Z79.899 Other long term (current) drug therapy | CPT/HCPCS: 99212 ==

== ENCOUNTER → 2021-07-08 14:10 | Outpatient (BNVA) | payer OTHER, SELFPAY | PROVIDERS: PCP Pediatrics; Visit Provider Physician Assistant Surgical | DX: K56.2 Volvulus (principal); Z98.890 Other specified postprocedural states | CPT/HCPCS: 99212 ==

== ENCOUNTER → 2021-08-08 08:52 | Outpatient (BNVA) | payer OTHER, SELFPAY | PROVIDERS: PCP Pediatrics; Referring Provider Pediatrics; Visit Provider Physician Assistant Surgical | DX: L03.90 Cellulitis, unspecified (principal) | CPT/HCPCS: 99212 ==

== ENCOUNTER 2021-08-14 12:13 | Outpatient (REF) | payer OTHER, SELFPAY | END 2021-08-14 12:14 | disposition home or self-care (01) | LOC: HO.LAB 12:13 | PROVIDERS: PCP Pediatrics; Referring Provider Pediatrics; Visit Provider Physician Assistant Surgical | DX: L02.216 Cutaneous abscess of umbilicus (principal); K56.2 Volvulus; F17.210 Nicotine dependence, cigarettes, uncomplicated; F12.90 Cannabis use, unspecified, uncomplicated; Z79.2 Long term (current) use of antibiotics; Z98.890 Other specified postprocedural states | CPT/HCPCS: 87071; 87077; 87186; 87205; 99212 ==

== ENCOUNTER → 2021-08-20 11:35 | Outpatient (BNVA) | payer OTHER, SELFPAY | PROVIDERS: PCP Pediatrics; Referring Provider Pediatrics; Visit Provider Physician Assistant Surgical | DX: L02.216 Cutaneous abscess of umbilicus (principal) | CPT/HCPCS: 99212 ==

== ENCOUNTER → 2021-09-04 11:19 | Outpatient (BNVA) | payer OTHER, SELFPAY | PROVIDERS: PCP Pediatrics; Referring Provider Pediatrics; Visit Provider Physician Assistant Surgical | DX: L02.216 Cutaneous abscess of umbilicus (principal); F17.200 Nicotine dependence, unspecified, uncomplicated; Z71.6 Tobacco abuse counseling; Z79.2 Long term (current) use of antibiotics | CPT/HCPCS: 99212 ==

== ENCOUNTER 2022-02-15 13:16 | Emergency (ER) | payer OTHER, SELFPAY ==
--- NOTE | 2022-02-15 | ECG_ITS ---
Test Reason : CP Blood Pressure : / mmHG Vent. Rate : 083 BPM Atrial Rate : 083 BPM P-R Int : 132 ms QRS Dur : 072 ms QT Int : 404 ms P-R-T Axes : -24 -26 024 degrees QTc Int : 474 ms Sinus rhythm with Premature atrial complexes Otherwise normal ECG No previous ECGs available Referred By: Generic ED Physician Electronically Signed By:Kj Packer
--- NOTE | ~2022-02-15 | CT_ITS ---
EXAMINATION: CT HEAD WITHOUT CONTRAST CLINICAL INFORMATION: 62-year-old female with high blood pressure and headache COMPARISON: None TECHNIQUE: Contiguous axial imaging was performed from the skull base to vertex without intravenous administration of contrast. This CT examination was performed using dose optimization techniques as appropriate, variously including the following: *Automated exposure control *Adjustment of mA and/or kV according to patient size (this includes techniques or standardized protocols for targeted exams where dose is matched to indication/reason for exam; i.e. extremities or head) *Use of iterative reconstruction technique DLP: 595.12 mGy-cm FINDINGS: There is no evidence of acute intracranial hemorrhage or territorial infarction. No abnormal mass effect or midline shift is seen. Anna to white matter differentiation is well preserved. No extra-axial fluid collections are identified. The ventricles are normal in size. There is no abnormal attenuation within the brain parenchyma. The osseous structures and soft tissues are normal. The mastoid air cells and visualized portions of the paranasal sinuses are well aerated. CT/CT head/brain wo con IMPRESSION: No acute intracranial pathology.
[2022-02-15 13:24] VITALS: BP 180/112; PULSE 84; RESP 18; TEMP 37.4; O2SAT 97; BMI 24.3
[2022-02-15 13:39] LABS: MANUAL DIFF FLAG NO
[2022-02-15 13:44] LABS: Basophils Percent Auto 0.1 % (0-2); Eosinophils Percent Auto 0.1 % (0-4); Hematocrit 50.4 % (37.0-47.0); Hemoglobin 16.9 g/dl (12.0-16.0); Imm Gran Pct Auto 0.3 % (0.0-0.4); Lymphocytes Percent Auto 11.2 % (20-40); Mean Corpuscular HGB Conc 33.5 g/dl (31.0-35.0); Mean Corpuscular Hemoglobin 27.6 pg (27.0-33.0); Mean Corpuscular Volume 82.2 fL (80.0-98.0); Mean Platelet Volume 11.1 fL (9.4-12.3); Monocytes Percent Auto 4.6 % (2-11); Neutrophils Percent Auto 83.7 % (45-73); Platelet Count 263 X10*3/uL (160-400); Red Blood Count 6.13 X10*6/uL (4.20-5.50); Red Cell Distribution Width 14.3 % (11.0-16.0); White Blood Count 14.9 X10*3/uL (4.8-10.8)
[2022-02-15 13:45] LABS: Imm Gran Abs Auto 0.05 X10*3/uL (0.00-0.03); Lymphocytes Absolute Auto 1.7 X10*3/uL (1.2-4.9); Monocytes Absolute Auto 0.7 X10*3/uL (0.1-1.2); Neutrophils Absolute Auto 12.5 x10*3/uL (2.0-8.3)
[2022-02-15 13:54] LABS: COVID-19 Test Negative (Negative); IDNOW Serial# 16C4AD1C; Influenza A Negative (Negative); Influenza B2 Negative (Negative)
[2022-02-15 13:58] LABS: Anion Gap 11 (12-20); Blood Urea Nitrogen 8 mg/dL (9-16); Carbon Dioxide 29 mmol/L (22-29); Chloride 98 mmol/L (96-108); Creatinine Clr Calc Pharmacy 71.7; Estimated Glomerular Filt Rate > 60; Glucose Random 104 mg/dL (60-115); Sodium 134 mmol/L (135-145)
--- NOTE | 2022-02-15 14:33 | ED.GENADULT ---
HPI - General Adult General Chief complaint: General Medical <MALCOLM Grider Last Filed: 02/15/22 17:49> Stated complaint: HBP/Back pain/headache <MALCOLM Grider - Last Filed: 02/15/22 17:49> Time Seen by Provider: 02/15/22 14:33 <MALCOLM Grider Last Filed: 02/15/22 17:49> Source: patient <MALCOLM Grider Last Filed: 02/15/22 17:49> Mode of arrival: ambulatory <MALCOLM Grider Last Filed: 02/15/22 17:49> Limitations: no limitations <MALCOLM Grider Last Filed: 02/15/22 17:49> History of Present Illness HPI narrative: Patient is a 62 year old female presenting to the emergency department today with a headache and elevated blood pressure. Patient states that for the last 3 days she has had nausea, headache, and chills but today she noticed that her blood pressure was elevated. Patient states that she has a history of high blood pressure for which she takes Verapamil. Patient denies any dizziness, lightheadedness, abdominal pain, vomiting, fever, blurry vision, double vision, loss of vision, chest pain, difficulty breathing, shortness of breath, back pain, night sweats, pain with urination, increased urinary frequency, increased urinary urgency, blood in her urine or stool, syncope or a near syncopal episode, recent trauma or falls, bowel incontinence, bladder incontinence, bowel retention, bladder retention, or any other complaints at this time. <MALCOLM Grider Last Filed: 02/15/22 17:49> Onset (ago): day(s) <MALCOLM Grider - Last Filed: 02/15/22 17:49> Severity: mild <MALCOLM Grider Last Filed: 02/15/22 17:49> Severity scale (1-10): 2 <MALCOLM Grider Last Filed: 02/15/22 17:49> Relieving factors: none <MALCOLM Grider Last Filed: 02/15/22 17:49> Exacerbating factors: none <MALCOLM Grider Last Filed: 02/15/22 17:49> Associated symptoms: fever/chills, headaches, loss of appetite and nausea/vomiting <MALCOLM Grider - Last Filed: 02/15/22 17:49> Treatments prior to arrival: none <MALCOLM Grider - Last Filed: 02/15/22 17:49> Related Data Home medications: Home Medications Medication Instructions Recorded Confirmed bisacodyl 5 mg tablet,delayed 10 mg PO BEDTIME PRN 07/26/20 08/20/21 release (Dulcolax (bisacodyl)) polyethylene glycol 3350 17 17 g PO DAILY PRN 07/26/20 08/20/21 gram/dose oral powder (Miralax) alendronate 70 mg tablet 1 tab PO MO 06/24/21 08/20/21 cetirizine 10 mg tablet 1 tab PO DAILY PRN 06/24/21 08/20/21 diclofenac sodium 1 % topical gel 2 g TOPICAL BID PRN 06/24/21 08/20/21 ibuprofen 800 mg tablet 1 tab PO TID PRN 06/24/21 08/20/21 linaclotide 145 mcg capsule 145 mcg PO DAILY PRN 06/24/21 08/20/21 (Linzess) lisinopril 40 mg tablet 1 tab PO DAILY 06/24/21 08/20/21 multivitamin with folic acid 400 1 tab PO DAILY 06/24/21 08/20/21 mcg tablet (Daily-Cassia (with folic acid)) paroxetine HCl 30 mg tablet 1 tab PO DAILY 06/24/21 08/20/21 ropinirole 2 mg tablet 1 tab PO DAILY 06/24/21 08/20/21 trazodone 100 mg tablet 2 tab PO BEDTIME 06/24/21 08/20/21 zolpidem 10 mg tablet 1 tab PO BEDTIME PRN 06/24/21 08/20/21 hydrocodone 10 mg-acetaminophen 1 tab PO Q4-6H PRN 07/01/21 08/20/21 325 mg tablet verapamil 180 mg tablet,extended 120 mg PO DAILY tab 07/08/21 08/20/21 release Previous Rx's Medication Instructions Recorded oxybutynin chloride 10 mg 10 mg PO DAILY 30 Days #90 tab 07/29/21 tablet,extended release 24 hr ciprofloxacin HCl 750 mg tablet 750 mg PO BID #14 tab 08/20/21 pantoprazole 40 mg tablet,delayed 40 mg PO BID #180 tab 11/18/21 release <MALCOLM Grider Last Filed: 02/15/22 17:49> Allergies/adverse reactions: Allergies Allergy/AdvReac Type Severity Reaction Status Date / Time penicillin V Allergy Unknown unknown Verified 02/15/22 13:23 <MALCOLM Grider Last Filed: 02/15/22 17:49> Review of Systems Constitutional: Constitutional: Reports no additional constitutional complaints, Reports chills, Denies fever(s), Reports headache(s) and Denies night sweats <MALCOLM Grider Last Filed: 02/15/22 17:49> Eyes: Eyes: Reports no additional eye complaints, Denies blurry vision, Denies change in vision, Denies diplopia, Denies eye discharge, Denies loss of vision and Denies eye pain <MLACOLM Grider Last Filed: 02/15/22 17:49> ENT: Denies dizziness and Reports headache(s) <MALCOLM Grider Last Filed: 02/15/22 17:49> Cardiovascular: Cardiovascular: Reports no additional cardiovascular complaints, Denies chest pain, Denies lightheadedness, Denies Loss of Consciousness and Denies dyspnea <MALCOLM Grider Last Filed: 02/15/22 17:49> Respiratory: Respiratory: Reports no additional respiratory complaints and Denies dyspnea <MALCOLM Grider Last Filed: 02/15/22 17:49> Gastrointestinal: Gastrointestinal: Reports no additional gastrointestinal complaints, Denies abdominal pain, Denies melena, Denies hematochezia, Denies change in bowel habits, Denies change in stool character and Reports nausea <MALCOLM Grider Last Filed: 02/15/22 17:49> Genitourinary: Genitourinary: Denies hematuria, Denies urinary frequency, Denies dysuria, Denies urinary incontinence, Denies urinary hesitancy and Denies urinary urgency <MALCOLM Grider Last Filed: 02/15/22 17:49> Musculoskeletal: Musculoskeletal: Reports no additional musculoskeletal complaints, Reports back pain, Denies numbness and Denies tingling <MALCOLM Grider Last Filed: 02/15/22 17:49> Neurologic: Denies dizziness, Reports headache(s), Denies loss of vision, Denies numbness and Denies tingling <MALCOLM Grider - Last Filed: 02/15/22 17:49> Psychiatric: Psychiatric: Reports no additional psychiatric complaints <MALCOLM Grider - Last Filed: 02/15/22 17:49> Endocrine: Endocrine: Reports no additional endocrine complaints <MALCOLM Grider - Last Filed: 02/15/22 17:49> Hematologic/Lymphatic: Hematologic/Lymphatic: Reports no additional hematologic/lymphatic complaints <MALCOLM Grider - Last Filed: 02/15/22 17:49> Allergic/Immunologic: Allergic/Immunologic: Reports no additional allergic/immunologic complaints <MALCOLM Grider - Last Filed: 02/15/22 17:49> PMF Past Medical History Attestation statement: The following information was validated with the patient. <MALCOLM Grider - Last Filed: 02/15/22 17:49> Source: old records reviewed <MALCOLM Grider - Last Filed: 02/15/22 17:49> Medical History: Medical History Acute abdomen Anxiety Chronic back pain Chronic idiopathic constipation Depression Fibromyalgia syndrome GERD (gastroesophageal reflux disease) History of intussusception Migraine headache Smoker Volvulus of intestine <MALCOLM Grider - Last Filed: 02/15/22 17:49> Surgical History: Surgical History H/O colonoscopy H/O wrist surgery History of appendectomy History of arthroscopy of both knees History of carpal tunnel surgery of left wrist History of section, classical History of gastric bypass History of laparoscopy History of laparotomy History of tubal ligation Hx of esophagogastroduodenoscopy <MALCOLM Grider - Last Filed: 02/15/22 17:49> Family History Family History: Family History Father Alcoholism Mother Lung cancer Maternal Grandmother Breast cancer High blood pressure Maternal Grandfather Heart attack Paternal Grandfather Diabetes <MALCOLM Grider - Last Filed: 02/15/22 17:49> Social History Social History: Social History Household Members: Children Housing: House Alcohol intake: never Patient Tobacco Use Status: Current everyday Tobacco user Cigarettes Per Day: 10 Years Smoked: since age 18 Use of substances other than those prescribed or required for medical reasons: Yes Substance Use Type: Marijuana Advance Directives: No service: No Current occupational status: disabled <MALCOLM Grider - Last Filed: 02/15/22 17:49> Physical Exam ED Vital Signs: Vital Signs - 24 hr 02/15/22 13:24 02/15/22 15:36 02/15/22 16:02 Temperature 99.3 F Pulse Rate 84 70 67 Respiratory Rate 18 18 12 Blood Pressure 180/112 H 203/106 H 193/104 H Pulse Oximetry 97 98 97 02/15/22 16:18 02/15/22 18:11 02/15/22 19:04 Temperature Pulse Rate 71 67 Respiratory Rate 18 17 16 Blood Pressure 202/112 H 205/115 H 171/107 H Pulse Oximetry 98 97 99 BMI result Body Mass Index 24.3 <MALCOLM Grider - Last Filed: 02/15/22 17:49> Vital Signs - 24 hr 02/15/22 13:24 02/15/22 15:36 02/15/22 16:02 Temperature 99.3 F Pulse Rate 84 70 67 Respiratory Rate 18 18 12 Blood Pressure 180/112 H 203/106 H 193/104 H Pulse Oximetry 97 98 97 02/15/22 16:18 02/15/22 18:11 02/15/22 19:04 Temperature Pulse Rate 71 67 Respiratory Rate 18 17 16 Blood Pressure 202/112 H 205/115 H 171/107 H Pulse Oximetry 98 97 99 BMI result Body Mass Index 24.3 <Joanna Garcia NP - Last Filed: 02/15/22 19:08> Const General: cooperative, no acute distress, alert and awake <MALCOLM Grider - Last Filed: 02/15/22 17:49> Nutritional Appearance: well nourished <MALCOLM Grider - Last Filed: 02/15/22 17:49> Orientation/consciousness: patient oriented x3 <MALCOLM Grider - Last Filed: 02/15/22 17:49> Limitations: no limitations <Jeanine Puri LA - Last Filed: 02/15/22 17:49> HENMT Head: Yes normal to inspection and Yes atraumatic <Jeanine Jaxson LA - Last Filed: 02/15/22 17:49> Ears: hearing grossly normal bilaterally and external ears normal <Jeanine Puri LA - Last Filed: 02/15/22 17:49> General nose exam: Normal external nose present, no nasal discharge noted and no epistaxis <Jeanine Puri LA - Last Filed: 02/15/22 17:49> Face and sinus: Yes normal facial exam, No abrasion and No laceration <Jeanine Puri LA - Last Filed: 02/15/22 17:49> Mouth: Normal oral and palatal mucosa present, no drooling and no muffled voice <Jeanine Puri LA - Last Filed: 02/15/22 17:49> Eyes General: appearance normal, both eyes and all related structures <Jeanine Puri LA - Last Filed: 02/15/22 17:49> Periorbital: periorbital findings normal <Jeanine Puri LA - Last Filed: 02/15/22 17:49> Eyelids: Yes eyelids normal <Jeanine Puri LA - Last Filed: 02/15/22 17:49> Conjunctivae: conjunctivae normal <Jeanine Puri LA - Last Filed: 02/15/22 17:49> Pupils: Equal, round and reactive pupils present <Jeanine Puri LA - Last Filed: 02/15/22 17:49> EOM: EOMs intact bilaterally <Jeanine Puri LA - Last Filed: 02/15/22 17:49> Neck Neck: Yes normal visual inspection, Yes full ROM and Yes no lymphadenopathy <MALCOLM Grider - Last Filed: 02/15/22 17:49> Chest Chest palpation & inspection: normal inspection of the chest <MALCOLM Grider - Last Filed: 02/15/22 17:49> Resp Effort & Inspection: normal respiratory effort and able to speak in complete sentences <MALCOLM Grider - Last Filed: 02/15/22 17:49> Auscultation: clear to auscultation bilaterally <Jeanine Nerifish PA - Last Filed: 02/15/22 17:49> Cardio Rate: regular rate <Jeanine NeriMALCOLM whitten - Last Filed: 02/15/22 17:49> Rhythm: regular rhythm <Jeanine Nerifish PA - Last Filed: 02/15/22 17:49> GI Inspection: Yes normal to inspection <Jeanine NeriMALCOLM whitten - Last Filed: 02/15/22 17:49> Palpation (GI): Soft to palpation, not firm, nontender, no guarding and not rigid <Jeanine Nerifish PA - Last Filed: 02/15/22 17:49> General: Yes no CVA tenderness <Jeanine NeriMALCOLM whitten - Last Filed: 02/15/22 17:49> Back/Spine/Pelvis Back: no CVA tenderness <Jeanine NeriMALCOLM whitten - Last Filed: 02/15/22 17:49> Cervical Spine: normal cervical lordosis and cervical ROM normal <Jeanine Nerifish PA - Last Filed: 02/15/22 17:49> Thoracic/Lumbar Spine: thoracic and lumbar spine normal to inspection and thoraco-lumbar ROM normal <Jeanine Nerifish PA - Last Filed: 02/15/22 17:49> Neuro General: patient oriented x3 and moves all extremities <Jeanine NeriMALCOLM whitten - Last Filed: 02/15/22 17:49> Cranial nerves: Yes Equal, round and reactive pupils present <Jeanine NeriMALCOLM whitten - Last Filed: 02/15/22 17:49> Cognition (Neuro): normal cognition <Jeanine NeriMALCOLM whitten - Last Filed: 02/15/22 17:49> Motor exam (neuro): 5/5 motor strength present throughout <Jeanine NeriMALCOLM whitten - Last Filed: 02/15/22 17:49> Sensory Exam: Normal double simultaneous stimulation for sensation <Jeanine MALCOLM Puri - Last Filed: 02/15/22 17:49> Coordination: [id number] test normal <Jeanine MALCOLM Puri - Last Filed: 02/15/22 17:49> Extrem General: Yes normal to inspection, Yes full ROM and Yes capillary refill normal <Jeanine Puri PA - Last Filed: 02/15/22 17:49> Psych Appearance: grossly normal <MALCOLM Grider - Last Filed: 02/15/22 17:49> Mental Status: mental status grossly normal <MALCOLM Grider Last Filed: 02/15/22 17:49> Affect: normal affect <MALCOLM Grider Last Filed: 02/15/22 17:49> Attitude: cooperative <MALCOLM Grider Last Filed: 02/15/22 17:49> Thought process: Normal thought process present <MALCOLM Grider Last Filed: 02/15/22 17:49> Thought content: Normal thought content present <MALCOLM Grider Last Filed: 02/15/22 17:49> Insight: Good insight present (Psych) <MALCOLM Grider Last Filed: 02/15/22 17:49> Course Reevaluation(s) Reevaluation #1: bp 170/100 Patient feels improved. She tells me that she does take verapamil 180 mg daily. She tells me she is also supposed to be taking lisinopril 40 mg but she is not compliant with this medication. I reviewed her medication reconciliation. On review of my notes it does not appear that the patient picked up a 90 day supply of lisinopril at the end of September. I do not see her picking up any additional doses of lisinopril. Patient is quite insistent that she still takes this at home. Therefore I recommended she be compliant with her lisinopril. I recommend she continue her verapamil. Tomorrow she should follow-up with her primary care doctor to have her blood pressure recheck in her medications reviewed. Reviewed worrisome signs and symptoms of when to return to the emergency department. Comfortable discharge home. <Joanna Garcia NP - Last Filed: 02/15/22 19:08> Time: 19:05 <Joanna Garcia NP - Last Filed: 02/15/22 19:08> Medical Decision Making MDM Narrative Medical decision making narrative: Patient is a 62 year old female presenting to the emergency department today with a headache, nausea, and feeling generally unwell. Patient's physical exam was unremarkable including no meningeal signs and a normal neurological examination. Patient's blood work showed a slightly elevated WBC count, I attribute this to a stress reaction and not an infectious process. Additionally, showed an elevated HGB however, the patient is a regular smoker. Patient's head CT showed no acute process. I explained my physical exam findings as well as all test results to the patient. I answered all questions asked by the patient. Patient received PO Hydralazine, toradol, and Ativan which she stated helped her headache significantly. Patient's blood pressure remained elevated. Patient has clonidine ordered. Plan is to have patient take clonidine and be reassessed. If her blood pressure decreases, she should be discharged with PCP follow up for blood pressure medication adjustment. Patient signed out to Joanna Decker NP. Patient verbalized agreement and understanding with this treatment plan. <MALCOLM Grider - Last Filed: 02/15/22 17:49> Differential Diagnosis Differential Diagnosis: headache, hypertension <MALCOLM Grider - Last Filed: 02/15/22 17:49> Medical Records Medical records reviewed: Yes I reviewed the patient's medical records. <MALCOLM Grider - Last Filed: 02/15/22 17:49> Lab Data Lab results reviewed: Yes I reviewed the patient's lab results. <MALCOLM Grider - Last Filed: 02/15/22 17:49> Result diagrams: : 02/15/22 13:26 02/15/22 13:26 <MALCOLM Grider - Last Filed: 02/15/22 17:49> Labs: Lab Results 02/15/22 02/15/22 02/15/22 Range/Units 13:26 13:26 13:28 WBC 14.9 H (4.8-10.8) X10*3/uL RBC 6.13 H (4.20-5.50) X10*6/uL Hgb 16.9 H (12.0-16.0) g/dl Hct 50.4 H (37.0-47.0) % MCV 82.2 (80.0-98.0) fL MCH 27.6 (27.0-33.0) pg MCHC 33.5 (31.0-35.0) g/dl RDW 14.3 (11.0-16.0) % Plt Count 263 (160-400) X10*3/uL MPV 11.1 (9.4-12.3) fL Immature Gran % (Auto) 0.3 (0.0-0.4) % Neut % (Auto) 83.7 H (45-73) % Lymph % (Auto) 11.2 L (20-40) % [place] % (Auto) 4.6 (2-11) % Eos % (Auto) 0.1 (0-4) % Baso % (Auto) 0.1 (0-2) % Lymph # (Auto) 1.7 (1.2-4.9) X10*3/uL [place] # (Auto) 0.7 (0.1-1.2) X10*3/uL Eos # (Auto) 0.0 (0.0-0.4) X10*3/uL Baso # (Auto) 0.0 (0.0-0.2) X10*3/uL Abs Immat Gran (auto) 0.05 H (0.00-0.03) X10*3/uL Absolute Neuts (auto) 12.5 H (2.0-8.3) x10*3/uL Absolute Nucleated RBC 0.000 (0.0-0.012) X10*3/uL Nucleated RBC % (auto) 0.0 (0.0-0.2) /100WBC Sodium 134 L (135-145) mmol/L Potassium 4.0 D (3.3-5.1) mmol/L Chloride 98 (96-108) mmol/L Carbon Dioxide 29 (22-29) mmol/L Anion Gap 11 L (12-20) BUN 8 L (9-16) mg/dL Creatinine 0.72 (0.5-1.4) mg/dL Estim Creat Clear Calc 71.7 Estimated GFR > 60 Random Glucose 104 (60-115) mg/dL Calcium 9.0 D (8.4-10.2) mg/dL COVID-19 (MIGUELINA) (Negative) COVID-19 Clin Com Influenza Type A (JAYLEEN) Negative (Negative) Influenza Type B (JAYLEEN) Negative (Negative) Influenza A & B Note See Note 02/15/22 Range/Units 13:28 WBC (4.8-10.8) X10*3/uL RBC (4.20-5.50) X10*6/uL Hgb (12.0-16.0) g/dl Hct (37.0-47.0) % MCV (80.0-98.0) fL MCH (27.0-33.0) pg MCHC (31.0-35.0) g/dl RDW (11.0-16.0) % Plt Count (160-400) X10*3/uL MPV (9.4-12.3) fL Immature Gran % (Auto) (0.0-0.4) % Neut % (Auto) (45-73) % Lymph % (Auto) (20-40) % [place] % (Auto) (2-11) % Eos % (Auto) (0-4) % Baso % (Auto) (0-2) % Lymph # (Auto) (1.2-4.9) X10*3/uL [place] # (Auto) (0.1-1.2) X10*3/uL Eos # (Auto) (0.0-0.4) X10*3/uL Baso # (Auto) (0.0-0.2) X10*3/uL Abs Immat Gran (auto) (0.00-0.03) X10*3/uL Absolute Neuts (auto) (2.0-8.3) x10*3/uL Absolute Nucleated RBC (0.0-0.012) X10*3/uL Nucleated RBC % (auto) (0.0-0.2) /100WBC Sodium (135-145) mmol/L Potassium (3.3-5.1) mmol/L Chloride (96-108) mmol/L Carbon Dioxide (22-29) mmol/L Anion Gap (12-20) BUN (9-16) mg/dL Creatinine (0.5-1.4) mg/dL Estim Creat Clear Calc Estimated GFR Random Glucose (60-115) mg/dL Calcium (8.4-10.2) mg/dL COVID-19 (MIGUELINA) Negative (Negative) COVID-19 Clin Com See Note Influenza Type A (JAYLEEN) (Negative) Influenza Type B (JAYLEEN) (Negative) Influenza A & B Note <MALCOLM Grider - Last Filed: 02/15/22 17:49> Lab Results 02/15/22 02/15/22 02/15/22 Range/Units 13:26 13:26 13:28 WBC 14.9 H (4.8-10.8) X10*3/uL RBC 6.13 H (4.20-5.50) X10*6/uL Hgb 16.9 H (12.0-16.0) g/dl Hct 50.4 H (37.0-47.0) % MCV 82.2 (80.0-98.0) fL MCH 27.6 (27.0-33.0) pg MCHC 33.5 (31.0-35.0) g/dl RDW 14.3 (11.0-16.0) % Plt Count 263 (160-400) X10*3/uL MPV 11.1 (9.4-12.3) fL Immature Gran % (Auto) 0.3 (0.0-0.4) % Neut % (Auto) 83.7 H (45-73) % Lymph % (Auto) 11.2 L (20-40) % [place] % (Auto) 4.6 (2-11) % Eos % (Auto) 0.1 (0-4) % Baso % (Auto) 0.1 (0-2) % Lymph # (Auto) 1.7 (1.2-4.9) X10*3/uL [place] # (Auto) 0.7 (0.1-1.2) X10*3/uL Eos # (Auto) 0.0 (0.0-0.4) X10*3/uL Baso # (Auto) 0.0 (0.0-0.2) X10*3/uL Abs Immat Gran (auto) 0.05 H (0.00-0.03) X10*3/uL Absolute Neuts (auto) 12.5 H (2.0-8.3) x10*3/uL Absolute Nucleated RBC 0.000 (0.0-0.012) X10*3/uL Nucleated RBC % (auto) 0.0 (0.0-0.2) /100WBC Sodium 134 L (135-145) mmol/L Potassium 4.0 D (3.3-5.1) mmol/L Chloride 98 (96-108) mmol/L Carbon Dioxide 29 (22-29) mmol/L Anion Gap 11 L (12-20) BUN 8 L (9-16) mg/dL Creatinine 0.72 (0.5-1.4) mg/dL Estim Creat Clear Calc 71.7 Estimated GFR > 60 Random Glucose 104 (60-115) mg/dL Calcium 9.0 D (8.4-10.2) mg/dL COVID-19 (MIGUELINA) (Negative) COVID-19 Clin Com Influenza Type A (JAYLEEN) Negative (Negative) Influenza Type B (JAYLEEN) Negative (Negative) Influenza A & B Note See Note 02/15/22 Range/Units 13:28 WBC (4.8-10.8) X10*3/uL RBC (4.20-5.50) X10*6/uL Hgb (12.0-16.0) g/dl Hct (37.0-47.0) % MCV (80.0-98.0) fL MCH (27.0-33.0) pg MCHC (31.0-35.0) g/dl RDW (11.0-16.0) % Plt Count (160-400) X10*3/uL MPV (9.4-12.3) fL Immature Gran % (Auto) (0.0-0.4) % Neut % (Auto) (45-73) % Lymph % (Auto) (20-40) % [place] % (Auto) (2-11) % Eos % (Auto) (0-4) % Baso % (Auto) (0-2) % Lymph # (Auto) (1.2-4.9) X10*3/uL [place] # (Auto) (0.1-1.2) X10*3/uL Eos # (Auto) (0.0-0.4) X10*3/uL Baso # (Auto) (0.0-0.2) X10*3/uL Abs Immat Gran (auto) (0.00-0.03) X10*3/uL Absolute Neuts (auto) (2.0-8.3) x10*3/uL Absolute Nucleated RBC (0.0-0.012) X10*3/uL Nucleated RBC % (auto) (0.0-0.2) /100WBC Sodium (135-145) mmol/L Potassium (3.3-5.1) mmol/L Chloride (96-108) mmol/L Carbon Dioxide (22-29) mmol/L Anion Gap (12-20) BUN (9-16) mg/dL Creatinine (0.5-1.4) mg/dL Estim Creat Clear Calc Estimated GFR Random Glucose (60-115) mg/dL Calcium (8.4-10.2) mg/dL COVID-19 (MIGUELINA) Negative (Negative) COVID-19 Clin Com See Note Influenza Type A (JAYLEEN) (Negative) Influenza Type B (JAYLEEN) (Negative) Influenza A & B Note <Joanna Garcia NP - Last Filed: 02/15/22 19:08> Imaging Data CT scan - head: Attestation: I personally reviewed and interpreted this imaging study as follows: <MALCOLM Grider - Last Filed: 02/15/22 17:49> My impression: No acute process. <MALCOLM Grider - Last Filed: 02/15/22 17:49> Radiologist's impression: EXAMINATION: CT HEAD WITHOUT CONTRAST CLINICAL INFORMATION: 62-year-old female with high blood pressure and headache? COMPARISON: None TECHNIQUE: Contiguous axial imaging was performed from the skull base to vertex without intravenous administration of contrast. This CT examination was performed using dose optimization techniques as appropriate, variously including the following: *Automated exposure control *Adjustment of mA and/or kV according to patient size (this includes techniques or standardized protocols for targeted exams where dose is matched to indication/reason for exam; i.e. extremities or head) *Use of iterative reconstruction technique DLP: 595.12 mGy-cm FINDINGS: There is no evidence of acute intracranial hemorrhage or territorial infarction. No abnormal mass effect or midline shift is seen. Anna to white matter differentiation is well preserved. No extra-axial fluid collections are identified. The ventricles are normal in size. There is no abnormal attenuation within the brain parenchyma. The osseous structures and soft tissues are normal. The mastoid air cells and visualized portions of the paranasal sinuses are well aerated. ? CT/CT head/brain wo con IMPRESSION: No acute intracranial pathology. Dictated By: Kailash Perdomo MD Signed By: Electronically signed by Kailash Perdomo MD 02/15/22 1520 <MALCOLM Grider - Last Filed: 02/15/22 17:49> Discharge Plan Discharge Clinical Impression: Hypertension, Headache <MALCOLM Grider - Last Filed: 02/15/22 17:49> Patient Disposition: Still a Patient <MALCOLM Grider - Last Filed: 02/15/22 17:49> Instructions: Hypertension (ED) <MALCOLM Grider - Last Filed: 02/15/22 17:49> Additional Instructions: Follow up with your primary care provider. Return to the emergency department immediately if your symptoms worsen or if you develop any dizziness, shortness of breath, difficulty breathing, chest pain, blurry vision, loss of vision, nausea, vomiting, abdominal pain, fever, chills, back pain, or any other complaints. <MALCOLM Grider - Last Filed: 02/15/22 17:49> Prescriptions: No Action oxybutynin chloride 10 mg tablet extended release 24hr 10 mg PO DAILY 30 Days Qty: 90 3RF pantoprazole 40 mg tablet,delayed release (DR/EC) 40 mg PO BID Qty: 180 0RF cetirizine 10 mg tablet 1 tab PO DAILY PRN (Reason: Allergy Symptoms) 0RF ibuprofen 800 mg tablet 1 tab PO TID PRN (Reason: Pain) 0RF Hold Instructions: until discussed with Dr Marsh alendronate 70 mg tablet 1 tab PO MO 0RF trazodone 100 mg tablet 2 tab PO BEDTIME 0RF ropinirole 2 mg tablet 1 tab PO DAILY 0RF paroxetine HCl 30 mg tablet 1 tab PO DAILY 0RF zolpidem 10 mg tablet 1 tab PO BEDTIME PRN (Reason: insomnia) 0RF lisinopril 40 mg tablet 1 tab PO DAILY 0RF diclofenac sodium 1 % gel 2 g topical BID PRN (Reason: Pain) 0RF multivitamin with folic acid [Daily-Cassia (with folic acid)] 400 mcg tablet 1 tab PO DAILY 0RF Linzess 145 mcg capsule 145 mcg PO DAILY PRN (Reason: Constipation) 0RF polyethylene glycol 3350 [Miralax] 17 gram/dose powder 17 g PO DAILY PRN (Reason: Constipation) 0RF bisacodyl [Dulcolax (bisacodyl)] 5 mg tablet,delayed release (DR/EC) 10 mg PO BEDTIME PRN (Reason: Constipation) 0RF ciprofloxacin HCl 750 mg tablet 750 mg PO BID Qty: 14 0RF Rx Instructions: please stop trazadone while on Ciprofloxacin. hydrocodone-acetaminophen 10-325 mg tablet 1 tab PO Q4-6H PRN (Reason: pain) 0RF verapamil 180 mg tablet extended release 120 mg PO DAILY 0RF Protocol: Hold for SBP/HR < HOLD for SBP < : 90 HOLD for HR < : 60 <MALCOLM Grider - Last Filed: 02/15/22 17:49> Referrals: Odalys De La Cruz MD [Primary Care Provider] - <MALCOLM Grider - Last Filed: 02/15/22 17:49> Print Language: [place] <MALCOLM Grider - Last Filed: 02/15/22 17:49>
[2022-02-15] MEDS: hydrALAZINE HCl 10 MG TABLET PO (15:35)
[2022-02-15] MEDS: LORazepam 1 MG TABLET 2 MG PO (15:35)
[2022-02-15 15:36] VITALS: BP 203/106; PULSE 70; RESP 18; O2SAT 98
--- NOTE | 2022-02-15 15:39 | PC.NURSE ---
medicated per provider order, pt c/o 07/06 headache.
[2022-02-15] MEDS: Ketorolac Tromethamine 15 MG/ML VIAL IM (15:55)
[2022-02-15 16:02] VITALS: BP 193/104; PULSE 67; RESP 12; O2SAT 97
[2022-02-15 16:18] VITALS: BP 202/112; PULSE 71; RESP 18; O2SAT 98
[2022-02-15] MEDS: cloNIDine HCL 0.1 MG TABLET PO (18:10)
[2022-02-15 18:11] VITALS: BP 205/115; PULSE 67; RESP 17; O2SAT 97
[2022-02-15 19:04] VITALS: BP 171/107; RESP 16; O2SAT 99
--- NOTE | 2022-02-15 19:18 | PC.NURSE ---
I assumed nursing care of this pt at 1900. She is discharged at this time. Repeat VS have been entered and verbally delivered to PA. pt verbalized an understanding of all DC orders.
== END 2022-02-15 19:34 | disposition home or self-care (01) ==
PROVIDERS: Emergency Provider Internal Medicine; PCP Pediatrics
DX: I10 Essential (primary) hypertension (principal); R51.9 Headache, unspecified; Z20.822 Contact with and (suspected) exposure to COVID-19
CPT/HCPCS: 36415; 70450; 80048; 85025; 87502; 87635; 93005; 96372; 99284; J1885

== ENCOUNTER → 2022-04-09 10:52 | Outpatient (BNVA) | payer OTHER, SELFPAY | PROVIDERS: PCP Pediatrics; Referring Provider Physician Assistant Surgical; Visit Provider Physician Assistant Surgical | DX: L76.82 Other postprocedural complications of skin and subcutaneous tissue (principal); Z98.890 Other specified postprocedural states | CPT/HCPCS: 99212 ==

== ENCOUNTER 2022-05-01 15:24 | Outpatient (REF) | payer OTHER, SELFPAY ==
[2022-05-01 16:36] LABS: Blood Urea Nitrogen 18 mg/dL (9-16); Estimated Glomerular Filt Rate > 60
== END 2022-05-01 15:25 | disposition home or self-care (01) ==
LOC: HO.LAB 15:24
PROVIDERS: PCP Pediatrics; Visit Provider Physician Assistant Surgical
DX: R10.9 Unspecified abdominal pain (principal); Z98.890 Other specified postprocedural states
CPT/HCPCS: 36415; 82565; 84520

== ENCOUNTER 2022-05-06 14:00 | Outpatient (REF) | payer OTHER, SELFPAY ==
--- NOTE | ~2022-05-06 | CT_ITS ---
EXAMINATION: CT ABDOMEN AND PELVIS WITH CONTRAST CLINICAL INFORMATION: POSTPROCEDURAL COMPLICATIONS OF SKIN/SUBCUTANEOUS TISSUE COMPARISON: Portions of a study performed without contrast 06/24/21 TECHNIQUE: Multidetector volumetric images were obtained from the superior aspect of the liver through the pubic symphysis following administration 85 mL of Omnipaque 350 intravenous contrast. Sagittal and coronal reformatted images were obtained on the technologist's workstation. Oral contrast: No This CT examination was performed using dose optimization techniques as appropriate, variously including the following: *Automated exposure control *Adjustment of mA and/or kV according to patient size (this includes techniques or standardized protocols for targeted exams where dose is matched to indication/reason for exam; i.e. extremities or head) *Use of iterative reconstruction technique DLP: 530 mGy-cm FINDINGS: LUNG BASES: No suspicious abnormality in the visualized lower chest. LIVER, GALLBLADDER, AND BILIARY TREE: The liver contour is smooth. There is a very subtle poorly defined 1.1 cm low attenuating area at the tip of the right lobe liver (series 3, image 44). I cannot determine if this was present previously. There is an unchanged circumscribed small cyst in the left lobe of the liver just under the diaphragm. There is no opaque gallstone. The common duct is top normal. PANCREAS: The pancreas is relatively atrophic. The pancreatic duct is prominent. No definite pancreatic mass. SPLEEN: Normal ADRENAL GLANDS: No suspicious abnormality KIDNEYS AND URETERS: There is no significant dilation of the urinary collecting system on either side. The renal contours are irregular suggesting some scarring. There are nonobstructing calculi in the central right and lower right kidney. The largest in the mid right kidney measures 0.6 cm and is 10 cm from the skin. BLADDER: The bladder is nearly empty. No large abnormality. GASTROINTESTINAL TRACT: The colon is not well distended. There is postsurgical change related to a bariatric procedure perhaps a gastric bypass. No significant small bowel dilation. There is hazy density in the mesentery. There is swirling of the mesenteric vessels. ABDOMINAL WALL: Evidence of previous surgery. No bowel hernia. LYMPH NODES: There are no measurably enlarged abdominal or pelvic lymph nodes. There is no significant free intraperitoneal fluid. VASCULAR: There is atherosclerotic calcification. There is no abdominal aortic aneurysm. The mesenteric vessels are abnormal. There is dilation of the main portal vein and the upper aspect of the superior mesenteric vein and there are dilated mesenteric vessels in the midabdomen. As described there is swirling of the mesenteric vessels. There are some areas where there is an abrupt changing caliber and there are some collaterals in the upper abdomen. PELVIC VISCERA: No suspicious abnormality. OSSEOUS STRUCTURES: Unchanged sclerotic lesion abutting the inferior endplate of L4 does not require any further evaluation. CT/CT abdomen pelvis w con IMPRESSION: Previous bariatric procedure. The mesentery is abnormal. There is hazy stranding and swirling in the mesentery and there are dilated mesenteric venous structures including collaterals with some areas of abrupt changing caliber. The clinical significance is uncertain. No evidence of high-grade small bowel obstruction. Previous study did not use IV contrast. Based upon the history provided I am uncertain of the exact clinical question. Fleischner guidelines were followed.
[2022-05-06] MEDS: iohexoL 350 MG/ML 100 ML INFUS..BTL 85 ML IV (14:50)
== END 2022-05-06 14:01 | disposition home or self-care (01) ==
LOC: HO.CT 14:00
PROVIDERS: PCP Pediatrics; Visit Provider Surgery
DX: L76.82 Other postprocedural complications of skin and subcutaneous tissue (principal)
CPT/HCPCS: 74177; Q9967

== ENCOUNTER → 2022-05-13 10:25 | Outpatient (BNVA) | payer OTHER, SELFPAY | PROVIDERS: PCP Pediatrics; Visit Provider Physician Assistant Surgical | DX: L76.82 Other postprocedural complications of skin and subcutaneous tissue (principal); Z98.84 Bariatric surgery status; Z98.890 Other specified postprocedural states | CPT/HCPCS: 99212 ==

== ENCOUNTER 2022-05-26 08:55 | Outpatient (REF) | payer OTHER, SELFPAY ==
--- NOTE | ~2022-05-26 | FL_ITS ---
EXAMINATION: FL UPPER GI SERIES CLINICAL INFORMATION: Unspecified abdominal pain COMPARISON: CT abdomen pelvis 05/06/2022 TECHNIQUE: Real-time fluoroscopy with multiple fluoroscopic spot images obtained as the patient swallowed thin barium in upright position. FINDINGS: The patient initiated swallowing normally. Normal esophageal peristalsis. No fixed esophageal mucosal abnormality seen. Contrast readily entered the gastric pouch and exited via the gastrojejunostomy. There appears to be a side to side gastrojejunostomy anastomosis. Initial contrast extended into the blind-ending anterior limb, subsequently into a posterior limb with runoff into the small bowel. No dilated loops of small bowel seen to suggest obstruction. No fixed narrowing to suggest a stricture. No contrast opacification of the gastric remnant seen to suggest a gastrogastric fistula. FLUOROSCOPY TIME: 1.9 minutes DOSE AREA PRODUCT: 13.889 uGy-m2 (microgray-meter squared) 19 images FL/FL upper GI series IMPRESSION: No evidence of stricture or obstruction. No contrast opacification of the gastric remnant to suggest a gastric gastric fistula. Postoperative anatomy consistent with a side to side gastrojejunostomy anastomosis as described above. Recommend correlation with surgical history.
== END 2022-05-26 08:56 | disposition home or self-care (01) ==
LOC: HO.XRAY 08:55
PROVIDERS: PCP Pediatrics; Visit Provider Physician Assistant Surgical
DX: R10.9 Unspecified abdominal pain (principal)
CPT/HCPCS: 74240

== ENCOUNTER → 2022-06-12 10:32 | Outpatient (BNVA) | payer OTHER, SELFPAY | PROVIDERS: PCP Pediatrics; Visit Provider Physician Assistant Surgical | DX: R10.9 Unspecified abdominal pain (principal); Z98.84 Bariatric surgery status; Z98.890 Other specified postprocedural states | CPT/HCPCS: 99212 ==

== ENCOUNTER → 2022-06-23 12:59 | Outpatient (BNVA) | payer OTHER, SELFPAY | PROVIDERS: PCP Pediatrics; Visit Provider Surgery | DX: Z01.818 Encounter for other preprocedural examination (principal); I10 Essential (primary) hypertension; R10.9 Unspecified abdominal pain; Z87.19 Personal history of other diseases of the digestive system; Z98.84 Bariatric surgery status; Z98.890 Other specified postprocedural states | CPT/HCPCS: 99202; 99212 ==

== ENCOUNTER 2022-07-02 06:20 | Day surgery (SDC) | payer OTHER, SELFPAY ==
[2022-06-29 12:07] VITALS: BMI 24.5
--- NOTE | 2022-07-01 09:09 | HO.ANESPROP2 ---
Documented by User: Kailee Villa NP 07/01/22 09:10 HPI - Anesthesia Eval Consult details Narrative: 62yo F for Upper Endoscopy PMFSH Active Problems Active Problems: All Active Problems (Updated 04/09/22 @ 11:51 by MALCOLM Valladares) History of gastric bypass (Acute) Pain at surgical incision (Acute) Abdominal pain (Acute) Abscess, umbilical (Acute) Cellulitis (Acute) Status post laparotomy (Acute) Chronic back pain (Acute) Gram-positive cocci in clusters (Acute) HTN (hypertension) (Acute) HTN (hypertension) with goal to be determined (Acute) History of laparotomy (Acute) Hypertensive urgency (Acute) Small bowel volvulus (Acute) Internal hernia (Acute) History of intussusception (Acute) Calcium oxalate crystals in urine (Acute) Hematuria (Acute) Urinary tract infection (Acute) Urinary frequency (Acute) GERD (gastroesophageal reflux disease) (Acute) Melena (Acute) Chronic idiopathic constipation (Acute) Past Medical History Medical History Acute abdomen Anxiety Chronic back pain Chronic idiopathic constipation Depression Fibromyalgia syndrome GERD (gastroesophageal reflux disease) History of intussusception Migraine headache Smoker Volvulus of intestine Family History Family History Father Alcoholism Mother Lung cancer Maternal Grandmother Breast cancer High blood pressure Maternal Grandfather Heart attack Paternal Grandfather Diabetes Family history of problems with anesthesia: No Surgical History Surgical History H/O colonoscopy H/O wrist surgery History of appendectomy History of arthroscopy of both knees History of carpal tunnel surgery of left wrist History of section, classical History of gastric bypass History of laparoscopy History of laparotomy History of tubal ligation Hx of esophagogastroduodenoscopy History of Problems with Anesthesia: No Social History Social History Household Members: Children Housing: House Alcohol intake: never Patient Tobacco Use Status: Former Tobacco user Cigarettes Per Day: 10 Years Smoked: since age 18 Substance Use Type: Marijuana Are you DNR?: No Advance Directives: No Advance Directives Information Provided: Yes Nutrition Risks: No Nutritional Risk service: No Current occupational status: disabled Meds Allergies Allergy/AdvReac Type Severity Reaction Status Date / Time penicillin V Allergy Unknown unknown Verified 07/02/22 06:55 Home Medications Medication Instructions Recorded Confirmed Last Taken Type bisacodyl 5 mg tablet,delayed 10 mg PO BEDTIME PRN Constipation 07/26/20 07/02/22 Unknown History release (Dulcolax (bisacodyl)) polyethylene glycol 3350 17 17 g PO DAILY PRN Constipation 07/26/20 07/02/22 Unknown History gram/dose oral powder (Miralax) alendronate 70 mg tablet 1 tab PO MO 06/24/21 07/02/22 Unknown History cetirizine 10 mg tablet 1 tab PO DAILY PRN Allergy Symptoms 06/24/21 07/02/22 Unknown History diclofenac sodium 1 % topical gel 2 g topical BID PRN Pain 06/24/21 07/02/22 Unknown History ibuprofen 800 mg tablet 1 tab PO TID PRN Pain 06/24/21 07/02/22 Unknown History linaclotide 145 mcg capsule 145 mcg PO DAILY PRN Constipation 06/24/21 07/02/22 Unknown History (Linzess) lisinopril 40 mg tablet 1 tab PO DAILY 06/24/21 07/02/22 Unknown History multivitamin with folic acid 400 1 tab PO DAILY 06/24/21 07/02/22 Unknown History mcg tablet (Daily-Cassia (with folic acid)) paroxetine HCl 30 mg tablet 1 tab PO DAILY 06/24/21 07/02/22 Unknown History ropinirole 2 mg tablet 1 tab PO DAILY 06/24/21 07/02/22 Unknown History trazodone 100 mg tablet 2 tab PO BEDTIME 06/24/21 07/02/22 Unknown History zolpidem 10 mg tablet 1 tab PO BEDTIME PRN insomnia 06/24/21 06/23/22 Unknown History verapamil 180 mg tablet,extended 120 mg PO DAILY 07/08/21 06/23/22 Unknown History release Exam Exam Date and Time: July 01, 2022908 Height,Weight and Vital Signs: Height 5 ft 4.75 in Weight 66.224 kg Pertinent Lab Results Pertinent Lab Results: Laboratory Tests 02/15/22 02/15/22 05/01/22 13:26 13:26 15:47 WBC 14.9 H Hgb 16.9 H Hct 50.4 H Plt Count 263 Sodium 134 L Potassium 4.0 D Chloride 98 Carbon Dioxide 29 BUN 18 H D Creatinine 0.75 Narrative Narrative: EKG 01/2022 Vent. Rate : 083 BPM ? ? Atrial Rate : 083 BPM ?? P-R Int : 132 ms? QRS Dur : 072 ms ? ? QT Int : 404 ms ? ? ? P-R-T Axes : -24 -26 024 degrees ?? QTc Int : 474 ms ? Sinus rhythm with Premature atrial complexes Otherwise normal ECG No previous ECGs available Assessment and Plan Assessment Anesthesia Assessment: Chart Reviewed Final Anesthetic Review Family History of Problems with Anesthesia: No History of Problems with Anesthesia: No Documented by User: Beckie Saavedra MD 07/02/22 07:26 [facility] Past Medical History Medical History Acute abdomen Anxiety Chronic back pain Chronic idiopathic constipation Depression Fibromyalgia syndrome GERD (gastroesophageal reflux disease) History of intussusception Migraine headache Smoker Volvulus of intestine Functional capacity: independent ambulation Patient : No Family History Family History Father Alcoholism Mother Lung cancer Maternal Grandmother Breast cancer High blood pressure Maternal Grandfather Heart attack Paternal Grandfather Diabetes Surgical History Surgical History H/O colonoscopy H/O wrist surgery History of appendectomy History of arthroscopy of both knees History of carpal tunnel surgery of left wrist History of section, classical History of gastric bypass History of laparoscopy History of laparotomy History of tubal ligation Hx of esophagogastroduodenoscopy Social History Social History Household Members: Children Housing: House Alcohol intake: never Patient Tobacco Use Status: Former Tobacco user Cigarettes Per Day: 10 Years Smoked: since age 18 Substance Use Type: Marijuana Are you DNR?: No Advance Directives: No Advance Directives Information Provided: Yes Nutrition Risks: No Nutritional Risk service: No Current occupational status: disabled Meds Allergies Allergy/AdvReac Type Severity Reaction Status Date / Time penicillin V Allergy Unknown unknown Verified 07/02/22 06:55 Home Medications Medication Instructions Recorded Confirmed Last Taken Type bisacodyl 5 mg tablet,delayed 10 mg PO BEDTIME PRN Constipation 07/26/20 07/02/22 Unknown History release (Dulcolax (bisacodyl)) polyethylene glycol 3350 17 17 g PO DAILY PRN Constipation 07/26/20 07/02/22 Unknown History gram/dose oral powder (Miralax) alendronate 70 mg tablet 1 tab PO MO 06/24/21 07/02/22 Unknown History cetirizine 10 mg tablet 1 tab PO DAILY PRN Allergy Symptoms 06/24/21 07/02/22 Unknown History diclofenac sodium 1 % topical gel 2 g topical BID PRN Pain 06/24/21 07/02/22 Unknown History ibuprofen 800 mg tablet 1 tab PO TID PRN Pain 06/24/21 07/02/22 Unknown History linaclotide 145 mcg capsule 145 mcg PO DAILY PRN Constipation 06/24/21 07/02/22 Unknown History (Linzess) lisinopril 40 mg tablet 1 tab PO DAILY 06/24/21 07/02/22 Unknown History multivitamin with folic acid 400 1 tab PO DAILY 06/24/21 07/02/22 Unknown History mcg tablet (Daily-Cassia (with folic acid)) paroxetine HCl 30 mg tablet 1 tab PO DAILY 06/24/21 07/02/22 Unknown History ropinirole 2 mg tablet 1 tab PO DAILY 06/24/21 07/02/22 Unknown History trazodone 100 mg tablet 2 tab PO BEDTIME 06/24/21 07/02/22 Unknown History zolpidem 10 mg tablet 1 tab PO BEDTIME PRN insomnia 06/24/21 06/23/22 Unknown History verapamil 180 mg tablet,extended 120 mg PO DAILY 07/08/21 06/23/22 Unknown History release Exam Airway Mallampati Class: II TM Dist: >3cm Neck ROM: Full Heart: RRR Lungs: CTA Assessment and Plan Final Anesthetic Review ASA Class: II Final Preanesthetic Review: Meds/Allgs Chart Reviewed, Consent Obtained/Reviewed and Anes Risks/Benef Reviewed Patient Risk: Low Procedure Risk: Low Anesthetic Plan Anesthetic Plan: MAC: Disposition: Standard PACU
--- NOTE | 2022-07-02 07:05 | MHC.SHP ---
Pre-Procedural Eval Section A Date of Service: 07/02/22 The patient is an INPATIENT: No The History & Physical has been completed within 30 days and I have reviewed it.: Yes Section B Chief Complaint: Unspecified abdominal pain Allergies: Allergies Allergy/AdvReac Type Severity Reaction Status Date / Time penicillin V Allergy Unknown unknown Verified 07/02/22 06:55 Plan I have reviewed the history and physical and performed a pertinent physical examination on my patient. No changes have occurred unless specified.
[2022-07-02 07:07] VITALS: BP 158/91; PULSE 72; RESP 18; TEMP 36.7; O2SAT 100
--- NOTE | 2022-07-02 07:07 | W.PM.OPN ---
Operative Note Operative Note Date of Service: 07/02/22 Narrative: Preop diagnosis: [Epigastric pain post gastric bypass] Postop diagnosis: [Same pouch inflammation, small marginal ulcer, no significant anatomic obstruction] Procedure: [Upper endoscopy with biopsies] Surgeon: Jamaal Hebert MD Assist: [None] Anesthesia: [MAC] Estimated blood loss: [3cc] Specimen: [Cold forceps biopsy gastric pouch] Intraoperative findings: [Gastric pouch inflammation and marginal ulcer with GERD; no significant anatomic obstruction from the candy-cane gastro J anastomosis] Indications: [The patient is a 62-year-old woman who is status post gastric bypass. She has had epigastric pain and right upper quadrant pain intermittently and continues to use both NSAIDs and nicotine in spite of counseling to avoid them. She has a history of cigarette smoking and marginal ulcers.] Procedure: [The patient was identified in the preoperative holding area and then in the operating room. An appropriate time-out was performed, a bite block placed, she was placed in left lateral decubitus position and MAC administered with excellent effect. Next, the Olympus 190 gastroscope was inserted through the bite block into the hypopharynx and advanced through the Quick review or anginal portion of the esophagus under direct vision. Clear secretions were encountered and aspirated. The scope was advanced to the GE junction were findings consistent with mild GERD with no ulceration were noted. There is no evidence of Ken's or a hiatal hernia. The scope was then advanced into the gastric pouch which appeared hyperemic and biopsies to assess for inflammation or H pylori were obtained. After ensuring good hemostasis, the scope was gently advanced and directly advanced into the jejunum. Again, mild jejunal irritation was noted, likely secondary to nicotine and NSAID use. No masses or active bleeding were encountered. Scope was withdrawn into the gastric pouch and irrigated biopsy sites showed good hemostasis. The scope was used to aspirate the gas and withdrawn from the patient. Patient tolerated the procedure well. Recommend nicotine abstinence, inset abstinence and I do not encounter an anatomical explanation requiring revision regarding the patient's pain. Her her gastritis and marginal ulcer likely the etiology to her ongoing complaints. Follow-up in [facility] as previously arranged.]
[2022-07-02 07:20] LABS: COVID-19 Test Negative (Negative)
[2022-07-02 07:33] VITALS: BP 130/74; PULSE 76; RESP 18; TEMP 36.6; O2SAT 98
[2022-07-02 07:52] VITALS: BP 144/73; PULSE 75; RESP 16; TEMP 36.6; O2SAT 97
[2022-07-02 08:07] VITALS: BP 170/91; PULSE 71; RESP 16; O2SAT 96
--- NOTE | 2022-07-02 08:16 | HO.POSTANES ---
Post Anesthesia Evaluation Post Anesthesia Evaluation Vital Signs: Vital Signs Temp Pulse Resp BP Pulse Ox O2 Del Method 07/02/22 08:07 71 16 170/91 H 96 Room Air 07/02/22 07:52 97.8 F 75 16 144/73 H 97 Room Air 07/02/22 07:33 97.9 F 76 18 130/74 98 Room Air 07/02/22 07:07 98.1 F 72 18 158/91 H 100 Room Air Anesthesia: Monitored Mental Status: Awake Pain Control: Satisfactory Nausea/Vomiting: None Hydration: Adequate Anesthesia-Related Issues: No Anes. Related Issues
[2022-07-02] MEDS: Lactated Ringers 500 ML 50 ML IV (08:18)
== END 2022-07-02 08:40 | disposition home or self-care (01) ==
PROVIDERS: Physician Assistant Surgical; PCP Pediatrics; Visit Provider Surgery
PROC: 0DJ08ZZ Inspection of Upper Intestinal Tract, Via Natural or Artificial Opening Endoscopic (ICD-10-PCS; CPT 43235; principal; 2022-07-02 07:30)
DX: R10.13 Epigastric pain (principal); K28.9 Gastrojejunal ulcer, unspecified as acute or chronic, without hemorrhage or perforation; K21.9 Gastro-esophageal reflux disease without esophagitis; K29.70 Gastritis, unspecified, without bleeding; Z98.84 Bariatric surgery status; K59.04 Chronic idiopathic constipation; M79.7 Fibromyalgia; F32.A Depression, unspecified; F41.1 Generalized anxiety disorder; Z79.899 Other long term (current) drug therapy; Z79.1 Long term (current) use of non-steroidal anti-inflammatories (NSAID); Z88.0 Allergy status to penicillin; F17.210 Nicotine dependence, cigarettes, uncomplicated; Z98.890 Other specified postprocedural states; Z20.822 Contact with and (suspected) exposure to COVID-19
CPT/HCPCS: 43239; 87635; 88305; 88342

== ENCOUNTER 2022-07-08 11:36 | Outpatient (REF) | payer OTHER, SELFPAY ==
--- NOTE | ~2022-07-08 | MM_ITS ---
EXAMINATION: MM SCREENING DIGITAL BREAST TOMOSYNTHESIS, BILATERAL CLINICAL INFORMATION: Screening. Asymptomatic. The lifetime risk of breast cancer based on the Tyrer-Cuzick Model is 7%. COMPARISON: Outside mammography: 08/01/2019, 07/25/2019, 03/09/2018 ([facility]). TECHNIQUE: Digital breast tomosynthesis is performed in both the craniocaudal and mediolateral oblique views along with computer-aided detection (CAD). Synthesized 2D images are generated from the tomosynthesis. Additional left CC view is provided. FINDINGS: There are scattered areas of fibroglandular density (ACR BI-RADS breast composition Category b). There are no significant masses, abnormal calcifications, or other abnormalities. Parenchymal pattern is similar to prior studies. There is no developing density or architectural abnormality. The axilla and skin contours are unremarkable. No significant changes from outside studies. MM/MM tomosynthesis screening BI IMPRESSION: No mammographic evidence of malignancy. ASSESSMENT: BI-RADS 1: Negative RECOMMENDATION: Routine annual mammography screening. This patient's information was entered into a reminder system with a target due date for their next mammogram.
== END 2022-07-08 11:37 | disposition home or self-care (01) ==
LOC: HO.MAMMO 11:36
PROVIDERS: PCP Pediatrics; Visit Provider Pediatrics
DX: Z12.31 Encounter for screening mammogram for malignant neoplasm of breast (principal)
CPT/HCPCS: 77063; 77067

== ENCOUNTER → 2022-07-28 12:57 | Outpatient (BNVA) | payer OTHER, SELFPAY | PROVIDERS: PCP Pediatrics; Referring Provider Pediatrics; Visit Provider Physician Assistant Surgical | DX: K28.9 Gastrojejunal ulcer, unspecified as acute or chronic, without hemorrhage or perforation (principal); Z98.890 Other specified postprocedural states; Z98.84 Bariatric surgery status | CPT/HCPCS: 99212 ==

== ENCOUNTER 2022-09-17 10:50 | Outpatient (REF) | payer OTHER, SELFPAY ==
--- NOTE | ~2022-09-17 | MM_ITS ---
EXAMINATION: BONE DENSITOMETRY CLINICAL INDICATION: Osteoporosis. COMPARISON: Previous BD dated 08/14/2020 and baseline BD dated 06/23/2016. TECHNIQUE: Using a [employer] DXA System (software version: 13.1) manufactured by [employer], dual-energy x-ray absorptiometry was performed of the lumbar spine and left hip. The images are of good technical quality. Summary results are attached. FINDINGS: AP SPINE L1-L4: Current: BMD 0.982 g/cm2, Z-score 0.6, T-score -1.6, osteopenia, 1.9% increase from previous, 4.1% decrease from baseline (<5% change is not significant). Prior: BMD 0.964 g/cm2. Baseline: BMD 1.024 g/cm2. LEFT FEMUR, NECK: Current: BMD 0.692 g/cm2, Z-score -1.4, T-score -2.5, osteoporosis. Prior: BMD 0.705 g/cm2. Baseline: BMD 0.809 g/cm2. LEFT FEMUR, TOTAL: Current: BMD 0.650 g/cm2, Z-score -2.0, T-score -2.8, osteoporosis, 3.6% decrease from previous, 17.8% decrease from baseline (<5% change is not significant). Prior: BMD 0.674 g/cm2. Baseline: BMD 0.791 g/cm2. IDENTIFIED RISK FACTORS: Early menopause, history of fracture (adult), hysterectomy, left oophorectomy, low calcium intake, osteoporosis, recurrent falls, tobacco use (current smoker), secondary osteoporosis. HISTORY OF FRACTURE: Humerus, wrist. MEDICATIONS: Multivitamin, vitamin D, bisphosphonate. MM/XR DEXA axial skeleton IMPRESSION: 1. DIAGNOSIS: Severe osteoporosis based on the lowest T-score value of -2.8 in the total femur and history of wrist and humerus fractures applying World Health Organization criteria. 2. 10-YEAR FRACTURE RISK PREDICTION, FRAX: According to the guidelines, FRAX calculation should only be performed on patients in the osteopenia bone density category. Therefore, FRAX was not performed on this patient. 3. Treatment Recommendations: NOF guidelines recommend consideration for treatment in postmenopausal women and men age 50 and older presenting with the following: -A hip or vertebral (clinical or morphometric) fracture. -T-score less than or equal to -2.5 at the femoral neck or spine after appropriate evaluation to exclude secondary causes. -Low bone mass at the hip or spine and a 10-year fracture probability by FRAX of greater than or equal to 3% for hip fracture or greater than or equal to 20% for major osteoporotic fracture based on the [place] adapted WHO algorithm. 4. Other Recommendations: All treatment decisions require clinical judgment and consideration of individual patient factors, including patient preferences, comorbidities, previous drug use, risk factors not captured in the FRAX model (e.g. frailty, falls, vitamin D deficiency, increased bone turnover, interval significant decline in bone density) and possible under or overestimation of fracture risk by FRAX. Additional medical evaluation for secondary cause of low bone mineral density may be appropriate. FUTURE SCAN RECOMMENDATION: People with diagnosed cases of osteoporosis or at high risk for fracture should have regular bone mineral density tests. For patients eligible for Medicare, routine testing is allowed once every 2 years. The testing frequency can be increased to one year for patients who have rapidly progressing disease, those who are receiving or discontinuing medical therapy to restore bone mass, or have additional risk factors.
== END 2022-09-17 10:51 | disposition home or self-care (01) ==
LOC: HO.MAMMO 10:50
PROVIDERS: PCP Pediatrics; Visit Provider Pediatrics
DX: Z13.820 Encounter for screening for osteoporosis (principal); Z78.0 Asymptomatic menopausal state; M81.0 Age-related osteoporosis without current pathological fracture
CPT/HCPCS: 77080

== ENCOUNTER → 2022-10-07 11:26 | Outpatient (BNVA) | payer OTHER, SELFPAY | PROVIDERS: PCP Pediatrics; Visit Provider Physician Assistant Surgical | DX: K28.9 Gastrojejunal ulcer, unspecified as acute or chronic, without hemorrhage or perforation (principal); Z98.84 Bariatric surgery status | CPT/HCPCS: 99212 ==

== ENCOUNTER → 2022-12-29 11:08 | Outpatient (BNVA) | payer OTHER, SELFPAY | PROVIDERS: PCP Pediatrics; Visit Provider Physician Assistant Surgical | DX: E66.9 Obesity, unspecified (principal); R10.9 Unspecified abdominal pain; F17.210 Nicotine dependence, cigarettes, uncomplicated; Z71.6 Tobacco abuse counseling; Z98.84 Bariatric surgery status; Z68.27 Body mass index [BMI] 27.0-27.9, adult; Z98.890 Other specified postprocedural states | CPT/HCPCS: 99212 ==

== ENCOUNTER 2023-02-04 09:36 | Outpatient (REF) | payer OTHER, SELFPAY ==
[2023-02-04 10:01] LABS: MANUAL DIFF FLAG NO
[2023-02-04 10:33] LABS: Basophils Absolute Auto 0.1 X10*3/uL (0.0-0.2); Basophils Percent Auto 0.8 % (0-2); Eosinophils Absolute Auto 0.1 X10*3/uL (0.0-0.4); Eosinophils Percent Auto 1.2 % (0-4); Hematocrit 45.2 % (37.0-47.0); Hemoglobin 14.2 g/dl (12.0-16.0); Imm Gran Abs Auto 0.04 X10*3/uL (0.00-0.03); Imm Gran Pct Auto 0.4 % (0.0-0.4); Lymphocytes Absolute Auto 1.5 X10*3/uL (1.2-4.9); Mean Corpuscular HGB Conc 31.4 g/dl (31.0-35.0); Mean Corpuscular Hemoglobin 26.1 pg (27.0-33.0); Mean Corpuscular Volume 82.9 fL (80.0-98.0); Mean Platelet Volume 11.6 fL (9.4-12.3); Monocytes Absolute Auto 0.7 X10*3/uL (0.1-1.2); Monocytes Percent Auto 6.5 % (2-11); Neutrophils Absolute Auto 8.1 x10*3/uL (2.0-8.3); Neutrophils Percent Auto 77.1 % (45-73); Platelet Count 283 X10*3/uL (160-400); Red Blood Count 5.45 X10*6/uL (4.20-5.50); Red Cell Distribution Width 15.4 % (11.0-16.0); White Blood Count 10.5 X10*3/uL (4.8-10.8)
[2023-02-04 10:42] LABS: Estimated Average Glucose 97 mg/dL
[2023-02-04 11:15] LABS: Blood Urea Nitrogen 9 mg/dL (9-16); Estimated Glomerular Filt Rate > 60
[2023-02-04 11:37] LABS: Alanine Aminotransferase 15 U/L (0-31); Albumin Level 3.2 g/dL (3.5-5.0); Alkaline Phosphatase 175 U/L (39-117); Anion Gap 14 (12-20); Aspartate Amino Transferase 16 U/L (5-31); Bilirubin Total 0.5 mg/dL (0.0-1.0); Blood Urea Nitrogen 9 mg/dL (9-16); C Reactive Protein < 0.10 mg/dL (< or = 0.50); Calcium 8.8 mg/dL (8.4-10.2); Carbon Dioxide 29 mmol/L (22-29); Chloride 105 mmol/L (96-108); Cholesterol 161 mg/dL; Estimated Glomerular Filt Rate > 60; Glucose Random 81 mg/dL (60-115); HDL Cholesterol 43 mg/dL; Iron 38 mcg/dL (30-160); LDL Cholesterol Calculated 100 mg/dl; Percent Iron Saturation 13 % (15-50); Potassium 4.5 mmol/L (3.3-5.1); Sodium 143 mmol/L (135-145); Total Iron Binding Capacity 299 mcg/dL (228-428); Total Protein 5.7 g/dL (6.5-8.0); Triglycerides 93 mg/dL; Unsaturated Iron Binding 261 ug/dL
[2023-02-04 11:56] LABS: Ferritin 19 ng/mL (10-250); Folate 14.5 ng/mL (> or = 4.0); Insulin 4 uU/mL (2-29); TSH reflex Free T4 0.44 uIU/mL (0.32-4.0); Vitamin B12 616 pg/mL (200-900); Vitamin D 25-OH Total 47.1 ng/mL (>30)
[2023-02-05 15:33] LABS: Calcium (PTHI) 9.1 mg/dL (8.6-10.4); PTHI 35 pg/mL (16-77)
[2023-02-10 01:29] LABS: Zinc 49 mcg/dL (60-130)
[2023-02-10 15:03] LABS: Vitamin B1 15 nmol/L (8-30)
[2023-02-11 01:13] LABS: Vitamin A 39 mcg/dL (38-98)
== END 2023-02-04 09:37 | disposition home or self-care (01) ==
LOC: HO.LAB 09:36
PROVIDERS: Visit Provider Physician Assistant Surgical
DX: Z01.812 Encounter for preprocedural laboratory examination (principal); K91.2 Postsurgical malabsorption, not elsewhere classified; Z98.84 Bariatric surgery status
CPT/HCPCS: 36415; 80053; 80061; 82306; 82565; 82607; 82728; 82746; 83036; 83525; 83540; 83970; 84425; 84443; 84520; 84590; 84630; 85025; 86140

== ENCOUNTER 2023-03-25 07:57 | Outpatient (REF) | payer OTHER, SELFPAY ==
--- NOTE | ~2023-03-25 | CT_ITS ---
EXAMINATION: CT ABDOMEN AND PELVIS WITH CONTRAST CLINICAL INFORMATION: History of internal hernia status post laparotomy. Pain. COMPARISON: CT abdomen pelvis 05/06/2022 TECHNIQUE: Multidetector volumetric images were obtained from the superior aspect of the liver through the pubic symphysis following administration 85 mL of Omnipaque 350 intravenous contrast. Sagittal and coronal reformatted images were obtained on the technologist's workstation. Oral contrast: Yes This CT examination was performed using dose optimization techniques as appropriate, variously including the following: *Automated exposure control *Adjustment of mA and/or kV according to patient size (this includes techniques or standardized protocols for targeted exams where dose is matched to indication/reason for exam; i.e. extremities or head) *Use of iterative reconstruction technique DLP: 508 mGy-cm FINDINGS: Visualized lung bases are well aerated. The liver is normal in size. There is similar mild intrahepatic biliary ductal dilatation and dilatation of the common bile duct measuring up to 1.1 cm. Similar 1.3 cm hypodense lesion of the left hepatic lobe, nonspecific. The gallbladder is well-distended and there is suspected high density bile dependently within the gallbladder although no definitive calcified gallstones are identified. The pancreas is atrophic. The pancreatic duct is mildly dilated. The spleen and adrenal glands are unremarkable. Symmetrically enhancing kidneys. There is some cortical scarring again noted within the right kidney. Small nonobstructing right renal calculi again appreciated. There is no hydronephrosis of either kidney. Similar postsurgical changes consistent with gastric bypass. Normal caliber loops of small and large bowel. Moderate colonic stool burden. There is similar swirling of the mesenteric vessels with some adjacent mesenteric haziness, nonspecific. Normal caliber abdominal aorta demonstrating moderate atherosclerotic disease. No retroperitoneal lymphadenopathy. The bladder is decompressed and therefore not accurately evaluated. Unremarkable CT appearance of the uterus. No gross free pelvic fluid. No inguinal lymphadenopathy. Mild diffuse degenerative changes of the spine. CT/CT abdomen pelvis w IV con IMPRESSION: 1. No CT evidence for acute abnormality within the abdomen or pelvis. 2. Mild intra and extrahepatic biliary ductal dilatation. 3. Suspected high density bile dependently within the gallbladder although no definitive calcified gallstones are identified. This may be further evaluated with dedicated right upper quadrant ultrasound as clinically indicated. 4. Nonobstructing right renal calculi. No hydronephrosis. 5. Moderate colonic stool burden. Fleischner guidelines were followed.
[2023-03-25] MEDS: iohexoL 350 MG/ML 100 ML INFUS..BTL IV (10:49)
[2023-03-25] MEDS: Barium Sulfate Oral (Berry) 450 ML ORAL.SUSP 900 ML PO (10:50)
[2023-03-25 14:25] LABS: Creatinine POC 0.6 mg/dL (0.5-1.4); GFR POC > 60
== END 2023-03-25 07:58 | disposition home or self-care (01) ==
LOC: HO.CT 07:57
PROVIDERS: Visit Provider Physician Assistant Surgical
DX: R10.9 Unspecified abdominal pain (principal); Z98.890 Other specified postprocedural states; Z98.84 Bariatric surgery status
CPT/HCPCS: 74177; 82565; Q9967

== ENCOUNTER 2023-05-27 12:58 | Outpatient (AMB) | payer OTHER, SELFPAY ==
--- NOTE | 2023-05-27 13:02 | A.OFFVIS_ITS ---
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 Required: No Accompanied by: Self / Same As Patient Allergies penicillin V Allergy (Unknown, Verified 05/27/23 13:06) unknown Medication List - Last Reconciled 05/27/23 by Eduardo Ragland MD alendronate 1 tab PO MO bisacodyl (Dulcolax (bisacodyl)) 10 mg PO BEDTIME PRN cetirizine 1 tab PO DAILY PRN diclofenac sodium 1% 2 grams topical BID PRN gabapentin 100 mg PO TID hydrocodone-acetaminophen 10-325 mg 1 tab PO Q8H PRN ibuprofen 1 tab PO TID PRN linaclotide (Linzess) 145 mcg PO DAILY PRN lisinopril 40 mg PO DAILY multivitamin with folic acid 400 mcg (Daily-Cassia (with folic acid)) 1 tab PO DAILY ondansetron 4 mg PO Q8H PRN oxybutynin chloride ER 10 mg PO DAILY 30 days pantoprazole 40 mg PO BID paroxetine HCl 30 mg PO DAILY ropinirole 2 mg PO DAILY trazodone 2 tabs PO BEDTIME verapamil ER 120 mg See Protocol PO DAILY zinc gluconate 10 mg PO DAILY zolpidem 1 tab PO BEDTIME PRN HPI HPI Comments History of Present Illness Details Janice has been referred for cardiac evaluation. Per PCP note, mention of sinus bradycardia and dizziness. However, patient states that she is rather here for chest pain. She states that she randomly gets episodes of left-sided chest pain. No clear patterns. Nothing specifically exertion. She also gets short of breath with activity. Chronic smoker and she has been doing that for a long time. She also has hypertension on medications. History of bariatric surgery. No known cardiac issues including coronary artery disease or myocardial infarction. [facility] Medical History (Updated 05/27/23 @ 13:25 by Eduardo Ragland MD) Acute abdomen Anxiety Chronic back pain Chronic idiopathic constipation Depression Fibromyalgia syndrome GERD (gastroesophageal reflux disease) History of intussusception Migraine headache Smoker Volvulus of intestine Surgical History H/O colonoscopy H/O wrist surgery History of appendectomy History of arthroscopy of both knees History of carpal tunnel surgery of left wrist History of section, classical History of gastric bypass History of laparoscopy History of laparotomy History of tubal ligation Hx of esophagogastroduodenoscopy Family History Father Alcoholism Mother Lung cancer Maternal Grandmother Breast cancer High blood pressure Maternal Grandfather Heart attack Paternal Grandfather Diabetes Social History Household Members: Children Housing: House Alcohol intake: never Patient Tobacco Use Status: Former Tobacco user Cigarettes Per Day: 10 Years Smoked: since age 18 Substance Use Type: Marijuana service: No Current occupational status: disabled Review of Systems Const Denies chills, Denies daytime sleepiness, Denies fatigue, Denies fever(s), Denies frequent falls, Denies night sweats, Denies snoring, Denies weakness, Denies weight gain and Denies weight loss Eyes Denies loss of vision ENT Denies dizziness and Denies hearing loss Card Denies chest pain, Denies chest pain with activity, Denies syncope, Denies rapid heart rate, Denies edema, Denies claudication, Denies leg edema, Denies lightheadedness, Denies palpitations, Denies dyspnea, Denies dyspnea on exertion and Denies orthopnea Resp Denies cough, Denies excessive phlegm production, Denies dyspnea, Denies dyspnea on exertion, Denies snoring and Denies wheezing GI Denies abdominal pain, Denies hematochezia, Denies change in bowel habits, Denies change in stool character, Denies heartburn, Denies nausea and Denies vomiting Denies hematuria, Denies urinary frequency and Denies dysuria Musc Denies arthralgias, Denies muscle weakness, Denies numbness and Denies tingling Skin/Breast Denies nail changes and Denies rash Neuro Denies Abnormal speech present, Denies dizziness, Denies syncope, Denies frequent falls, Denies loss of vision, Denies memory loss, Denies numbness, Denies tingling and Denies weakness Psych Denies depression and Denies memory loss Endo Denies fatigue and Denies palpitations Aller/Immun Denies wheezing Physical Exam Vital Signs: Last Vital Signs Pulse 97 05/27/23 13:03 BP 150/80 H 05/27/23 13:03 BMI result Body Mass Index 30.0 Const General: comfortable and no acute distress Orientation/consciousness: patient oriented x3 HEENT Other: Unremarkable Head: Yes normal to inspection Neck Neck: Yes normal visual inspection Chest Chest palpation & inspection: normal inspection of the chest Resp Auscultation: clear to auscultation bilaterally Cardio Palpation: normal PMI Heart sounds: S1 normal heart sound present, S2 normal heart sound present, no gallops, Murmur heart sound present systolic III/ and at the right sternal border and no rubs GI Palpation (GI): Soft to palpation Back/Spine/Pelvis Other: unremarkable Skin General skin exam: no rashes or lesions noted Neuro General: patient oriented x3 Speech: No Abnormal speech present Extrem General: Yes normal to inspection Psych Mental Status: mental status grossly normal Office Procedures EKG Details: EKG with sinus rhythm at 97/Min; leftward axis; possible left atrial enlargement; no significant ST-T changes. [id number], Complete Assessment & Plan Assessment & Plan (1) Precordial chest pain: Code(s): R07.2 - Precordial pain (2) Shortness of breath: Code(s): R06.02 - Shortness of breath (3) Aortic valve sclerosis: Code(s): I35.8 - Other nonrheumatic aortic valve disorders (4) HTN (hypertension): Code(s): I10 - Essential (primary) hypertension (5) Smoker: Code(s): F17.200 - Nicotine dependence, unspecified, uncomplicated Plan Mention of bradycardia in PCP note, but essentially all the heart rates that are available to us in the vital signs are well within normal range. Hence no specific workup for that. Her chest pain itself is atypical but she has numerous cardiovascular risk factors including smoking, hypertension. Will need some form of ischemic evaluation, probably with an exercise stress test. However, auscultation she also has aortic valve murmur. Would like to start with an echocardiogram to ensure there is no significant aortic stenosis. If that were the case, then we can proceed with stress test. With regard to shortness of breath on activity, could be multifactorial but predominantly related to smoking. As above, echocardiogram can also be completed to ensure there is no significant cardiac dysfunction as well. Follow-up after testing is completed and reviewed. Discussed with patient and she is agreeable with plan. Orders: Orders CA echo transthoracic complete Today I35.0 - Nonrheumatic aortic (valve) stenosis Coding Level of Care Code New Pt Level 4 (96796) Diagnoses Precordial chest pain R07.2 Shortness of breath R06.02 Aortic valve sclerosis I35.8 HTN (hypertension) I10 Smoker F17.200 CPT Codes EKG - CPT: 22572-[id number], Complete ([id number])
[2023-05-27 13:03] VITALS: BP 150/80; PULSE 97
== END 2023-05-27 13:26 | disposition home or self-care (01) ==
PROVIDERS: PCP Pediatrics; Referring Provider Pediatrics; Visit Provider Internal Medicine
DX: R07.2 Precordial pain (principal); R06.02 Shortness of breath; I35.8 Other nonrheumatic aortic valve disorders; I10 Essential (primary) hypertension; F17.200 Nicotine dependence, unspecified, uncomplicated
CPT/HCPCS: 93010; 99204

== ENCOUNTER → 2023-05-27 12:58 | Outpatient (BNVA) | payer OTHER, SELFPAY | PROVIDERS: PCP Pediatrics; Referring Provider Pediatrics; Visit Provider Internal Medicine | DX: R07.2 Precordial pain (principal); R06.02 Shortness of breath; I35.8 Other nonrheumatic aortic valve disorders; I10 Essential (primary) hypertension; F17.210 Nicotine dependence, cigarettes, uncomplicated | CPT/HCPCS: 93005; 99202 ==

== ENCOUNTER → 2023-06-24 10:56 | Outpatient (REF) | payer OTHER, SELFPAY ==
--- NOTE | 2023-06-24 10:59 | CA_ITS ---
Transthoracic Echocardiogram Patient (Last, First, Middle): Janice Taylor T Gender: Female Date of : 1960 Age: 63 Procedure Date: 06/24/2023 Procedure Type: Transthoracic Echocardiogram Location: OP Height: 162.56 cm Weight: 77.11 kg BSA: 1.83 m2 Heart Rate: 64 bpm BP: 118 / 72 mmHg Woodworking Machine Feeder: WAGNER Frank MD: Eduardo Ragland MD Sales Administration Specialist: Anson Haro MD Symptoms: I35.0 - Nonrheumatic aortic (valve) stenosis Study Quality: Adequate ECG Rhythm: Sinus Conclusions: - 1. Normal LV ejection fraction of 60 65% 2. Normal cardiac valvular Dopplers 3. Mildly dilated ascending aorta at 3.7 cm 4. Normal RV systolic pressure 5. No pericardial effusion Findings Left Ventricle Normal left ventricular size, thickness, and systolic function. The visually estimated ejection fraction is between 60-65%. Spectral Doppler is indicative of a normal filling pattern. Peak GLS is -20.5%, within normal limits. Right Ventricle Normal right ventricular cavity size and systolic function. Atria The left atrium is likely dilated. There is lipomatous hypertrophy of the interatrial septum. There is no evidence of interatrial shunt. The right atrium is normal in size. Aortic Valve Normal aortic valve structure and function. There is no aortic valve stenosis. There is no aortic valve regurgitation. Mitral Valve Normal mitral valve structure and function. There is trace mitral valve regurgitation. There is no mitral valve stenosis. Tricuspid Valve Likely normal tricuspid valve structure and function. There is trace tricuspid valve regurgitation. The right ventricular systolic pressure is normal. The right ventricular systolic pressure is 23 mmHg. Normal right atrial pressure. There is no evidence of pulmonary hypertension. Great Vessels The pulmonary artery was not well visualized. There is mild dilatation of the ascending aorta measuring 3.70 cm. Venous The inferior vena cava is normal in size and collapses greater than 50% with inspiration. Pericardium/Pleural There is no evidence of pericardial effusion. Prior Study Comparison No prior study available for comparison. Measurements 2D Linear Measurements IVSd: 1.16 0.6-0.9/0.6-1.0 cm LVIDd: 4.43 3.9-5.3/4.2-5.9 cm LVIDd Index: 2.42 2.4-3.2/2.2-3.1 cm/m2 LVIDs: 2.05 2.0-3.6 cm LVPWd: 0.99 0.7-1.1 cm LA Diam: 3.90 2.7-3.8/3.0-4.0 cm LAIDs Index: 2.13 1.5-2.3 cm/m2 LV Mass: 275.24 67-162/88-224 g LV Mass Index: 150.41 43-95/49-115 g/m2 LVOT Diam: 2.10 3.0+(-)1.3 cm 2D Systolic Function EF 4C: 60.90 >55% EF 2C: 70.20 >55% EF BiP: 64.00 >55% Mitral Valve MV Pk E: 1.04 MV PK A: 0.91 MV Decel Time: 199.00 E/A: 1.10 E'Lateral: 7.29 E'Medial: 5.87 E/E' Med: 17.70 E/E' Lat: 14.30 PHT: 58.00 MVA PHT: 3.79 Decel Grainger: 5.25 Aortic Valve AoV Pk Junior: 1.49 AoV Mn Junior: 1.01 AoV VTI: 0.34 AoV Pk Grad: 9.00 Aov Mn Grad: 5.00 JOSE Cont.VTI: 3.01 LVOT LVOT Pk Junior: 1.36 LVOT Mn Junior: 0.90 LVOT VTI: 0.30 LVOT Pk Grad: 7.00 LVOT Mn Grad: 4.00 LVOT Diam: 2.10 LVOT Area: 3.46 Diastolic Function MV Pk E: 1.04 MV Pk A: 0.91 E/A: 1.10 E'Medial: 5.87 E/E' Med: 17.70 E' Laterial: 7.29 E/E' Lat: 14.30 Right Ventricle TAPSE (mm): 28.70 TVS' Junior: 14.30 Tricuspid Valve TR Pk Junior: 2.24 TR Pk Grad: 20.00 RA Press: 3.00 RVSP: 23.00 Great Vessels Aorta Sinus of Valsalva: 3.40 2.0-3.5 cm Ao Asc: 3.70 2.1-3.4 cm Pulmonary Valve PV Pk Junior: 0.88 Peak PV Grad: 3.00 Updated in Other Vendor System with Status of Final Anson Haro MD electronically signed on 06/24/2023 1:44:10 PM with status of Final
== END ==
LOC: HO.CARD 10:56
PROVIDERS: PCP Pediatrics; Visit Provider Internal Medicine
DX: I35.0 Nonrheumatic aortic (valve) stenosis (principal)
CPT/HCPCS: 93306; 93356

== ENCOUNTER → 2023-06-24 10:59 | Outpatient (BNV) | payer OTHER, SELFPAY | PROVIDERS: PCP Pediatrics; Visit Provider Internal Medicine Cardiovascular Disease | DX: I35.0 Nonrheumatic aortic (valve) stenosis (principal) | CPT/HCPCS: 93306 ==

== ENCOUNTER 2023-06-29 12:36 | Outpatient (AMB) | payer OTHER, SELFPAY ==
--- NOTE | 2023-06-29 12:40 | MHC.OFFVISWM ---
Intake VS Expanded 06/29/23 12:46 BP 106/61 Blood Pressure Location Rt brachial Blood Pressure Position Sitting Pulse 62 Pulse Source Pulse Oximeter Temp 97.6 F Temperature Source Temporal Artery Scan Pulse Oximetry 99 Oxygen Delivery Method Room Air Height 5 ft 4 in Weight 173 lb 9.6 oz BMI 29.8 Body Fat % 37.2 Body Fat Mass 64.6 Fat Free Mass 109.0 Visceral Fat Rating 10.0 Body Water % 44.3 Body Water Mass 77.0 Muscle Mass/Score 103.4 Basal Metabolic Rate/Score 1,480 Intake Visit Reasons: PO LAP 06/25/21 Allergies penicillin V Allergy (Unknown, Verified 06/29/23 12:43) unknown Medication List - Last Reconciled 06/29/23 by VELIA Valladares alendronate 1 tab PO MO bisacodyl (Dulcolax (bisacodyl)) 10 mg PO BEDTIME PRN cetirizine 1 tab PO DAILY PRN diclofenac sodium 1% 2 grams topical BID PRN gabapentin 100 mg PO TID hydrocodone-acetaminophen 10-325 mg 1 tab PO Q8H PRN ibuprofen 1 tab PO TID PRN linaclotide (Linzess) 145 mcg PO DAILY PRN lisinopril 40 mg PO DAILY multivitamin with folic acid 400 mcg (Daily-Cassia (with folic acid)) 1 tab PO DAILY ondansetron 4 mg PO Q8H PRN oxybutynin chloride ER 10 mg PO DAILY 30 days pantoprazole 40 mg PO BID paroxetine HCl 30 mg PO DAILY ropinirole 2 mg PO DAILY trazodone 2 tabs PO BEDTIME verapamil ER 120 mg See Protocol PO DAILY zinc gluconate 10 mg PO DAILY zolpidem 1 tab PO BEDTIME PRN HPI HPI Comments History of Present Illness Details Pt is s/p laparoto my and detorsion o f SB for internal hernia, 06/25/2021, complicated by de velopment abscess at umbilicus posto peratively. Pt und erwent upper endos copy for complaint s of ongoing abdom inal pain on 2021, which reveal ed gastritis and a small marginal ul cer. She continue s to have some lef t sided abdominal pain. Reports BMs every 2-3 days. N ot currently on an y bowel regimen. N ot on Linzess. Co ntinues to take velia ntoprazole twice a day. Uses ibupro fen occasionally. Continues to smoke . Gained about 14l bs since last visi t 6mo ago. CT sca n was performed af ter last visit in December to assess pt 's complaint of on going abdominal pa in. Pt reports jose n continues to be LLQ, intermittent. [facility] Medical History (Updated 06/29/23 @ 12:49 by VELIA Valladares) Smoker Chronic back pain Depression Anxiety Acute abdomen Migraine headache GERD (gastroesophageal reflux disease) Fibromyalgia syndrome Chronic idiopathic constipation History of intussusception Volvulus of intestine Surgical History History of laparotomy History of laparoscopy History of gastric bypass History of appendectomy History of carpal tunnel surgery of left wrist History of tubal ligation History of section, classical History of arthroscopy of both knees H/O wrist surgery Hx of esophagogastroduodenoscopy H/O colonoscopy Family History Father Alcoholism Mother Lung cancer Maternal Grandmother Breast cancer High blood pressure Maternal Grandfather Heart attack Paternal Grandfather Diabetes Social History Household Members: Children Housing: House Alcohol intake: never Patient Tobacco Use Status: Former Tobacco user Cigarettes Per Day: 10 Years Smoked: since age 18 Substance Use Type: Marijuana service: No Current occupational status: disabled Results Reviewed Results Reviewed: Ordering Physician: Nehal Bravo Date of Service: 03/25/23 Procedure(s): CT abdomen pelvis w IV con Accession Number(s): [id number] cc: Nehal Bravo~ EXAMINATION: CT ABDOMEN AND PELVIS WITH CONTRAST CLINICAL INFORMATION: History of internal hernia status post laparotomy. Pain. COMPARISON: CT abdomen pelvis 05/06/2022 TECHNIQUE: Multidetector volumetric images were obtained from the superior aspect of the liver through the pubic symphysis following administration 85 mL of Omnipaque 350 intravenous contrast. Sagittal and coronal reformatted images were obtained on the technologist's workstation. Oral contrast: Yes This CT examination was performed using dose optimization techniques as appropriate, variously including the following: *Automated exposure control *Adjustment of mA and/or kV according to patient size (this includes techniques or standardized protocols for targeted exams where dose is matched to indication/reason for exam; i.e. extremities or head) *Use of iterative reconstruction technique DLP: 508 mGy-cm FINDINGS: Visualized lung bases are well aerated. The liver is normal in size. There is similar mild intrahepatic biliary ductal dilatation and dilatation of the common bile duct measuring up to 1.1 cm. Similar 1.3 cm hypodense lesion of the left hepatic lobe, nonspecific. The gallbladder is well-distended and there is suspected high density bile dependently within the gallbladder although no definitive calcified gallstones are identified. The pancreas is atrophic. The pancreatic duct is mildly dilated. The spleen and adrenal glands are unremarkable. Symmetrically enhancing kidneys. There is some cortical scarring again noted within the right kidney. Small nonobstructing right renal calculi again appreciated. There is no hydronephrosis of either kidney. Similar postsurgical changes consistent with gastric bypass. Normal caliber loops of small and large bowel. Moderate colonic stool burden. There is similar swirling of the mesenteric vessels with some adjacent mesenteric haziness, nonspecific. Normal caliber abdominal aorta demonstrating moderate atherosclerotic disease. No retroperitoneal lymphadenopathy. The bladder is decompressed and therefore not accurately evaluated. Unremarkable CT appearance of the uterus. No gross free pelvic fluid. No inguinal lymphadenopathy. Mild diffuse degenerative changes of the spine. CT/CT abdomen pelvis w IV con IMPRESSION: 1. No CT evidence for acute abnormality within the abdomen or pelvis. 2. Mild intra and extrahepatic biliary ductal dilatation. 3. Suspected high density bile dependently within the gallbladder although no definitive calcified gallstones are identified. This may be further evaluated with dedicated right upper quadrant ultrasound as clinically indicated. 4. Nonobstructing right renal calculi. No hydronephrosis. 5. Moderate colonic stool burden. Assessment & Plan Assessment & Plan (1) History of gastric bypass: Code(s): Z98.84 - Bariatric surgery status (2) History of laparotomy: Comment: With detorsion of small-bowel volvulus Code(s): Z98.890 - Other specified postprocedural states (3) Smoker: Code(s): F17.200 - Nicotine dependence, unspecified, uncomplicated (4) Marginal ulcer: Code(s): K28.9 - Gastrojejunal ulcer, unspecified as acute or chronic, without hemorrhage or perforation (5) Overweight: Code(s): E66.3 - Overweight Plan Discussed CT scan findings w/ pt, explained to her that based on location of pain I thought it was unlikely to be caused by her gallbladder and more likely to be related to slow bowel motility. Will prescribe Miralax once daily. Unclear if pt still has marginal ulcer; she continues to smoke and use ibuprofen occasionally. If pain continues despite improved bowel motility could consider repeat endoscopy to assess ulcer healing. Pt to continue on PPI BID. Gave pt case of Ensure shakes. RTC 3 months. Patient is overweight and is not considered stable at this time. I spent a total of 30 minutes reviewing/updating records, examining the patient and counseling the patient on weight management as detailed above. Medications: New polyethylene glycol 3350 (Miralax) 17 grams PO DAILY 510 grams 3RF Coding Level of Care Code Est Pt Level 4 (07945) Diagnoses History of gastric bypass Z98.84 History of laparotomy Z98.890 Smoker F17.200 Marginal ulcer K28.9 Overweight E66.3
[2023-06-29 12:46] VITALS: BP 106/61; PULSE 62; TEMP 36.4; O2SAT 99; BMI 29.8
== END 2023-06-29 13:13 | disposition home or self-care (01) ==
PROVIDERS: PCP Pediatrics; Visit Provider Physician Assistant Surgical
DX: E66.3 Overweight (principal); Z68.29 Body mass index [BMI] 29.0-29.9, adult; Z90.3 Acquired absence of stomach [part of]; Z98.84 Bariatric surgery status; K28.9 Gastrojejunal ulcer, unspecified as acute or chronic, without hemorrhage or perforation
CPT/HCPCS: 99214

== ENCOUNTER → 2023-06-29 12:36 | Outpatient (BNVA) | payer OTHER, SELFPAY | PROVIDERS: PCP Pediatrics; Visit Provider Physician Assistant Surgical | DX: K28.9 Gastrojejunal ulcer, unspecified as acute or chronic, without hemorrhage or perforation (principal); E66.3 Overweight; F17.200 Nicotine dependence, unspecified, uncomplicated; Z98.84 Bariatric surgery status | CPT/HCPCS: 99212 ==

== ENCOUNTER → 2023-08-31 10:53 | Outpatient (REF) | payer OTHER, SELFPAY ==
--- NOTE | 2023-08-31 10:56 | CA_ITS ---
Acquisition Time: 2023-08-31 10:50:25 Total Exercise Time: 00:03:10 Test Indications: Dyspnea CP Medications: SEE H Protocol: USAMA Max HR: 113 BPM 71% of Pred: 159 BPM Max BP: 144/092 mmHG Max Work Load: 3.8 METS Exercise stress test with exercise 3 min 10 sec of Usama protocol, stage 1 ( with incline reduced to 2.5%, achieving 69% MPHR. without anginal symptoms, without arrythmia, with normotensive response to exercise, with nondiagnostic EKG for ischemia due to suboptimal heart rate and exercise time. Test reviewed with Dr Haro. Referred By: Eduardo Ragland Overread By: IRVIN RICHARDS
== END ==
LOC: HO.CARD 10:53
PROVIDERS: PCP Pediatrics; Visit Provider Internal Medicine
DX: R07.2 Precordial pain (principal)
CPT/HCPCS: 93017

== ENCOUNTER → 2023-08-31 10:56 | Outpatient (BNV) | payer OTHER, SELFPAY | PROVIDERS: PCP Pediatrics; Visit Provider Nurse Practitioner Family | DX: R07.2 Precordial pain (principal) | CPT/HCPCS: 93016; 93018 ==